=== PATIENT | female | born 1975 | race Caucasian/White ===

== ENCOUNTER → 2018-04-18 10:23 | Outpatient (REF) | payer SELFPAY | LOC: OM 10:23 | PROVIDERS: PCP Nurse Practitioner; Visit Provider Nurse Practitioner Family | DX: Z02.83 Encounter for blood-alcohol and blood-drug test (principal) ==

== ENCOUNTER 2018-06-01 13:55 | Emergency (ER) | payer BC, SELFPAY ==
[2018-06-01 14:06] VITALS: BP 120/82; RESP 17; TEMP 36.7; O2SAT 98
--- NOTE | 2018-06-01 15:21 | DI.RAD_ITS ---
SYMPTOMS/DIAGNOSIS: SENSATION OF SWELLING AT BASE OF TONGUE X 1 DAY, ? NEW MEDICATION ALLERGY PER PATIENT SOFT TISSUE NECK: AP and lateral views were performed. There is no prevertebral soft tissue swelling. The epiglottis and aryepiglottic folds are unremarkable. There is no airway narrowing. Degenerative changes are seen in the cervical spine. No foreign body is seen. No pneumothorax is seen at the lung apices. IMPRESSION: Degenerative changes of the cervical spine. Unremarkable soft tissues.
--- NOTE | 2018-06-01 15:25 | W.ED.GENAD ---
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 It is extremely important that you make an appointment to be seen by your primary care doctor within the next 1-2 weeks and follow-up this visit. Referrals: Marie Rosales [Primary Care Provider] - Discharge Data Discharge Date/Time-TO BE ENTERED AT DEPARTURE: 06/01/18 17:53 Medical Decision Making Emmanuelle Brooks is a 43 y/o woman with h/o PCOS presenting to the emergency department with sensation of tongue swelling that began today, sent here from obstetrics gyn appt after she reported symptoms to them. Pt with normal exam of the oropharynx. No apparent edema. Pt is handling secretions without issue. Exam/hx not c/w impending airway compromise at this time, sepsis, abscess. Given Pt report of feeling swelling at base of tongue and no apparent changes on exam, plan for plain film soft tissue neck for r/o epiglottic or other pharyngeal abnormality. Neck film okay. Doubt allergic reaction at this time. Unclear etiology of abnormal tongue sensation. Pt reports tongue feels improved. Lengthy discussion with Pt re: RTED precautions and importance of outpt f/u with PCP. She is amenable to the plan. HPI General Mode of arrival: ambulatory. Date/Time Provider Initiated Documentation: 06/01/18 14:21. Limitations to Documentation: no limitations. Information obtained by: patient, RN notes reviewed and old records reviewed. HPI Narrative: Emmanuelle De Leon is a 43 y/o woman with h/o polycystic ovarian syndrome presenting to the emergency department with tongue swelling. Pt reports that several days ago she was started on clobetasol for lichen sclerosis. She reports that today she felt that her tongue seemed swollen. She was seen by gynecology today in f/u visit, spoke to them re: tongue symptoms, was given 40mg prednisone and 10mg zyrtec and sent to ED for further eval. Pt reports that her tongue swelling seems mildly improved but still present since taking meds. She states that the base of her tongue in the back is the area that feels abnormal to her. She has eaten since onset of symptoms without issue, no trouble swallowing. No pain, no fevers, no n/v/d, no rash, no other swelling. Feels otherwise in her usual state of health. No other new meds, new foods, new exposures. No recent travel, no recent illness. Related Data Home Medications Medication Instructions Recorded Confirmed multivitamin [Daily Multi-Vitamin] 1 ea PO DAILY 04/19/18 06/06/18 prochlorperazine maleate 10 mg PO Q6H PRN #60 tab-cap 04/19/18 06/06/18 magnesium oxide 500 mg capsule 500 mg PO DAILY cap 06/06/18 06/06/18 riboflavin (vitamin B2) 100 mg 100 mg PO DAILY #30 tab 06/06/18 06/06/18 tablet rizatriptan 10 mg disintegrating 10 mg PO ONCE #8 tab-cap 06/06/18 06/06/18 tablet Previous Rx's Medication Instructions Recorded prochlorperazine maleate 10 mg PO Q6H PRN #60 tab-cap 04/19/18 riboflavin (vitamin B2) 100 mg 100 mg PO DAILY #30 tab 06/06/18 tablet rizatriptan 10 mg disintegrating 10 mg PO ONCE #8 tab-cap 06/06/18 tablet Allergies Allergy/AdvReac Type Severity Reaction Status Date / Time clobetasol Allergy Severe Verified 06/01/18 13:43 morphine Allergy Severe Anaphylaxsi Verified 05/31/18 10:48 s sulfamethoxazole Allergy Unknown Verified 05/31/18 10:48 [From Bactrim] trimethoprim [From Bactrim] Allergy Unknown Verified 05/31/18 10:48 General Stated Complaint: Allergic PAMELA: 4 Review of Systems Review of Systems Constitutional: denies fevers Eyes: denies eye pain ENT: denies facial pain, dental pain, sore throat Cardiovascular: denies chest pain, edema Respiratory: denies SOB, cough GI: denies abdominal pain, vomiting, diarrhea : denies flank pain MSK: denies back pain, neck pain, arthralgias, myalgias Skin: denies rash Neuro: denies headaches, n/t PFSH Female Reproductive History Menstrual control method: other (Vasectomy for BC) Exam Narrative Exam Narrative: Constitutional: well and [id number], pleasant, conversing normally HENT: head atraumatic, normocephalic normal inspection, mucous membranes moist, normal oropharynx without apparent edema of the tongue or lips, no erythema, uvula midline, normal voice, handling secretions without issue Eyes: conjunctiva normal, sclera normal, pupils 3mm b/l Neck: no stridor, normal ROM, trachea midline Resp: normal work of breathing, LCTAB Cardio: normal rate, normal rhythm, no murmur appreciated Skin: warm, dry, normal color, no rash Neuro: alert, not altered, grossly non-focal, normal tone Psych: normal mood, normal affect, normal behavior Course Vital Signs Temperature 36.7 C 06/01/18 14:06 Respiratory Rate 17 06/01/18 14:06 Blood Pressure 120/82 06/01/18 14:06 Pulse Oximetry 98 06/01/18 14:06 Temperature 36.7 C 06/01/18 14:06 Temperature Source Temporal Artery Scan 06/01/18 14:06 Respiratory Rate 17 06/01/18 14:06 Respiratory Effort 06/01/18 14:12 Respiratory Pattern Normal 06/01/18 14:12 Blood Pressure 120/82 06/01/18 14:06 Blood Pressure Position Sitting 06/01/18 14:06 Pulse Oximetry 98 06/01/18 14:06 Oxygen Delivery Method Room Air 06/01/18 14:06 Oxygen Flow Rate 0 06/01/18 14:06 Pain Level 0 06/01/18 14:06
--- NOTE | 2018-06-01 17:06 | DI.VRAD_ITS ---
EXAM: XR Soft Tissue Neck CLINICAL HISTORY: 43 years old, female; Signs and symptoms; Other: Sensation of swelling at base of tongue TECHNIQUE: Frontal and lateral views of the soft tissues of the neck. COMPARISON: No relevant prior studies available. FINDINGS: The soft tissues are unremarkable. No radiopaque foreign body. Degenerative disc disease at the C4-5 level with minimal posterior positioning of C4 with respect to C3 and C5. No evidence of acute bony abnormality. IMPRESSION: Degenerative disease of the mid cervical spine. No evidence of acute abnormality. Dictated and Authenticated by: Milotn Howe MD. Ordering:SOTERO ALMODOVAR MD
--- NOTE | 2018-06-14 20:54 | ED.GENADUL_ITS ---
Discharge Plan Disposition Patient Disposition: HOME Condition: Stable Discharge Details Chief Complaint: Allergic Clinical Impression: Abnormality of tongue Primary Care Provider: Marie Rosales ED Provider: Gabriela Rodriguez Home Meds and New Rx's Prescriptions: Continue multivitamin [Daily Multi-Vitamin] 1 EACH tablet 1 ea PO DAILY RF: 0 prochlorperazine maleate 10 MG tablet 10 mg PO Q6H PRN Qty: 60 RF: 1 No Action riboflavin (vitamin B2) 100 mg tablet 100 mg PO DAILY Qty: 30 RF: 6 rizatriptan [Maxalt-RETAIL LOSS PREVENTION SPECIALIST] 10 mg tablet,disintegrating 10 mg PO ONCE Qty: 8 RF: 6 magnesium oxide 500 mg capsule 500 mg PO DAILY RF: 0 Discharge Instructions Instructions: Anaphylaxis (ED), Allergies (ED) Additional Instructions: Please return immediately to the emergency department if you develop any new or worsening symptoms or if you become otherwise concerned. It is extremely important that you make an appointment to be seen by your primary care doctor within the next 1-2 weeks and follow-up this visit. 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 Pt with normal exam of the oropharynx. No apparent edema. Pt is handling secretions without issue. Exam /hx not c/w impending airway compromise at this time, sepsis, abscess. Given Pt report of feeling swelling at base of tongue and no apparent changes on exam, plan for plain film soft tissue neck for r/o epiglottic or other pharyngeal abnormality. Neck film okay. Doubt allergic reaction at this time. Unclear etiology of abnormal tongue sensation. Pt reports tongue feels improved. Lengthy discussion with Pt re: RTED precautions and importance of outpt f/u with PCP. She is amenable to the plan. HPI General Mode of arrival: ambulatory . Date/Time Provider Initiated Documentation: 06/01/18 14:21 . Limitations to Documentation: no limitations . Information obtained by: patient, RN notes reviewed and old records reviewed . HPI Narrative: Emmanuelle De Leon is a 43 y/o woman with h/o polycystic ovarian syndrome presenting to the emergency department with tongue swelling. Pt reports that several days ago she was started on clobetasol for lichen sclerosis. She reports that today she felt that her tongue seemed swollen. She was seen by gynecology today in f/u visit, spoke to them re: tongue symptoms, was given 40mg prednisone and 10mg zyrtec and sent to ED for further eval. Pt reports that her tongue swelling seems mildly improved but still present since taking meds. She states that the base of her tongue in the back is the area that feels abnormal to her. She has eaten since onset of symptoms without issue , no trouble swallowing. No pain, no fevers, no n/v/d, no rash, no other swelling. Feels otherwise in her usual state of health. No other new meds, new foods, new exposures. No recent travel, no recent illness. Related Data Home Medications Medication Instructions Recorded Confirmed multivitamin [Daily Multi-Vitamin] 1 ea PO DAILY 04/19/18 06/06/18 prochlorperazine maleate 10 mg PO Q6H PRN #60 tab-cap 04/19/18 06/06/18 magnesium oxide 500 mg capsule 500 mg PO DAILY cap 06/06/18 06/06/18 riboflavin (vitamin B2) 100 mg 100 mg PO DAILY #30 tab 06/06/18 06/06/18 tablet rizatriptan 10 mg disintegrating 10 mg PO ONCE #8 tab-cap 06/06/18 06/06/18 tablet Previous Rx's Medication Instructions Recorded prochlorperazine maleate 10 mg PO Q6H PRN #60 tab-cap 04/19/18 riboflavin (vitamin B2) 100 mg 100 mg PO DAILY #30 tab 06/06/18 tablet rizatriptan 10 mg disintegrating 10 mg PO ONCE #8 tab-cap 06/06/18 tablet Allergies Allergy/AdvReac Type Severity Reaction Status Date / Time clobetasol Allergy Severe Verified 06/01/18 13:43 morphine Allergy Severe Anaphylaxsi Verified 05/31/18 10:48 s sulfamethoxazole Allergy Unknown Verified 05/31/18 10:48 [From Bactrim] trimethoprim [From Bactrim] Allergy Unknown Verified 05/31/18 10:48 General Stated Complaint: Allergic PAMELA: 4 Review of Systems Review of Systems Constitutional: denies fevers Eyes: denies eye pain ENT: denies facial pain, dental pain, sore throat Cardiovascular: denies chest pain, edema Respiratory: denies SOB, cough GI: denies abdominal pain, vomiting, diarrhea : denies flank pain MSK: denies back pain, neck pain, arthralgias, myalgias Skin: denies rash Neuro: denies headaches, n/t PFSH Female Reproductive History Menstrual control method: other (Vasectomy for BC) Exam Narrative Exam Narrative: Constitutional: well and [id number], pleasant, conversing normally HENT: head atraumatic, normocephalic normal inspection, mucous membranes moist, normal oropharynx without apparent edema of the tongue or lips, no erythema, uvula midline, normal voice, handling secretions without issue Eyes: conjunctiva normal, sclera normal, pupils 3mm b/l Neck: no stridor, normal ROM, trachea midline Resp: normal work of breathing, LCTAB Cardio: normal rate, normal rhythm, no murmur appreciated Skin: warm, dry, normal color, no rash Neuro: alert, not altered, grossly non-focal, normal tone Psych: normal mood, normal affect, normal behavior Course Vital Signs Temperature 36.7 C 06/01/18 14:06 Respiratory Rate 17 06/01/18 14:06 Blood Pressure 120/82 06/01/18 14:06 Pulse Oximetry 98 06/01/18 14:06 Temperature 36.7 C 06/01/18 14:06 Temperature Source Temporal Artery Scan 06/01/18 14:06 Respiratory Rate 17 06/01/18 14:06 Respiratory Effort 06/01/18 14:12 Respiratory Pattern Normal 06/01/18 14:12 Blood Pressure 120/82 06/01/18 14:06 Blood Pressure Position Sitting 06/01/18 14:06 Pulse Oximetry 98 06/01/18 14:06 Oxygen Delivery Method Room Air 06/01/18 14:06 Oxygen Flow Rate 0 06/01/18 14:06 Pain Level 0 06/01/18 14:06
== END 2018-06-01 17:53 | disposition home or self-care (01) ==
PROVIDERS: Emergency Provider Student in an Organized Health Care Education/Training Program; PCP Nurse Practitioner
DX: R20.0 Anesthesia of skin (principal)
CPT/HCPCS: 99283; 70360; 99282

== ENCOUNTER 2018-06-24 10:08 | Emergency (ER) | payer BC, SELFPAY ==
[2018-06-24 10:21] VITALS: BP 128/68; PULSE 71; RESP 16; TEMP 36.7; O2SAT 100
--- NOTE | 2018-06-24 10:41 | W.ED.GENAD ---
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 Please follow-up with your neurologist. Return to the ER for any worsening or new concerning symptoms. Referrals: Marie Rosales [Primary Care Provider] - Shasha Cisneros MD [ [facility] STAFF PHYSICIAN] - Discharge Data Discharge Date/Time-TO BE ENTERED AT DEPARTURE: 06/24/18 12:05 Medical Decision Making 10:43 --43-year-old female with history of migraine headaches here with severe migraine. We will give compazine IV and benadryl. Plan for occipital block. 11:50 --patient refused Benadryl. She did receive Compazine and on reassessment notes significant improvement in headache. Patient requesting discharge. Patient declined occipital block. Usual and customary discharge instructions provided. Plan to f/u neurology. Patient understands to return immediately for any worsening or new concerning symptoms. HPI General Mode of arrival: ambulatory. Date/Time Provider Initiated Documentation: 06/24/18 10:24. Limitations to Documentation: no limitations. Information obtained by: patient. HPI Narrative: 43-year-old female with history of migraine headaches here with severe migraine. Migraine has been present for 4 days. Feels like typical migraine but is persisting. Pain is diffuse. Severe. Constant. Light worsens headache. No assoc neck stiffness or fever. No assoc numbness or weakness. Related Data Home Medications Medication Instructions Recorded Confirmed multivitamin [Daily Multi-Vitamin] 1 ea PO DAILY 04/19/18 06/28/18 prochlorperazine maleate 10 mg PO Q6H PRN #60 tab-cap 08/28/18 11/06/18 magnesium oxide 500 mg capsule 500 mg PO DAILY cap 06/06/18 06/28/18 riboflavin (vitamin B2) 100 mg 100 mg PO DAILY #30 tab 06/06/18 06/28/18 tablet rizatriptan 10 mg disintegrating 10 mg PO ONCE #8 tab-cap 18 06/28/18 tablet Previous Rx's Medication Instructions Recorded prochlorperazine maleate 10 mg PO Q6H PRN #60 tab-cap 04/19/18 riboflavin (vitamin B2) 100 mg 100 mg PO DAILY #30 tab 06/06/18 tablet rizatriptan 10 mg disintegrating 10 mg PO ONCE #8 tab-cap 06/06/18 tablet Allergies Allergy/AdvReac Type Severity Reaction Status Date / Time clobetasol Allergy Severe Verified 06/28/18 12:51 morphine Allergy Severe Anaphylaxsi Verified 06/28/18 12:51 s sulfamethoxazole Allergy Unknown Verified 06/28/18 12:51 [From Bactrim] trimethoprim [From Bactrim] Allergy Unknown Verified 06/28/18 12:51 General Stated Complaint: Headache PAMELA: 2 Review of Systems Review of Systems All systems reviewed & are unremarkable except as noted in HPI and below PFSH Female Reproductive History Menstrual control method: permanent sterilization (vasectomy) and other (Vasectomy for BC) Exam Const General: cooperative and no acute distress [facility] Head: normocephalic and atraumatic Mouth: moist mucous membranes Eyes Conjunctivae: normal conjunctivae Sclera: normal sclerae EOM: EOM intact bilaterally Neck Neck: full ROM and trachea midline Resp Auscultation: clear to auscultation bilaterally, no rales, no rhonchi and no wheezes Cardio Jugular venous pressure: no JVD Rate: regular rate and not tachycardic Rhythm: regular rhythm GI Palpation: soft, not firm, no guarding, no masses, not rigid and nontender Skin General skin exam: no rashes or lesions noted Neuro General: alert, awake, oriented x3, gait normal, tone normal and moves all extremities Cognition: normal cognition Speech: speech normal Gait: normal gait Motor: strength 5/5 throughout Sensory Exam: no sensory deficits noted Extrem General: no edema Psych Appearance: grossly normal Mental Status: mental status grossly normal Speech and Movement: speech and movement normal Course Vital Signs Temperature 36.7 C 06/24/18 10:21 Pulse 71 06/24/18 10:21 Respiratory Rate 16 06/24/18 10:21 Blood Pressure 128/68 06/24/18 10:21 Pulse Oximetry 100 06/24/18 10:21 Temperature 36.7 C 06/24/18 10:21 Temperature Source Temporal Artery Scan 06/24/18 10:21 Pulse 71 06/24/18 10:21 Respiratory Rate 16 06/24/18 10:21 Respiratory Effort Non-Labored 06/24/18 10:27 Blood Pressure 128/68 06/24/18 10:21 Blood Pressure Position Sitting 06/24/18 10:21 Pulse Oximetry 100 06/24/18 10:21 Oxygen Delivery Method Room Air 06/24/18 10:21 Oxygen Flow Rate 0 06/24/18 10:21
--- NOTE | 2018-06-24 10:44 | ED.GENADUL_ITS ---
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 Please follow-up with your neurologist. Return to the ER for any worsening or new concerning symptoms. Referrals: Marie Rosales [Primary Care Provider] - Shasha Cisneros MD [ [facility] STAFF PHYSICIAN] - Discharge Data Discharge Date/Time-TO BE ENTERED AT DEPARTURE: 06/24/18 12:05 Medical Decision Making 10:43 --43-year-old female with history of migraine headaches here with severe migraine. We will give compazine IV and benadryl. Plan for occipital block. 11:50 --patient refused Benadryl. She did receive Compazine and on reassessment notes significant improvement in headache. Patient requesting discharge. Patient declined occipital block. Usual and customary discharge instructions provided. Plan to f/u neurology. Patient understands to return immediately for any worsening or new concerning symptoms. HPI General Mode of arrival: ambulatory . Date/Time Provider Initiated Documentation: 06/24/18 10:24 . Limitations to Documentation: no limitations . Information obtained by: patient . HPI Narrative: 43-year-old female with history of migraine headaches here with severe migraine. Migraine has been present for 4 days. Feels like typical migraine but is persisting. Pain is diffuse. Severe. Constant. Light worsens headache. No assoc neck stiffness or fever. No assoc numbness or weakness. Related Data Home Medications Medication Instructions Recorded Confirmed multivitamin [Daily Multi-Vitamin] 1 ea PO DAILY 04/19/18 06/28/18 prochlorperazine maleate 10 mg PO Q6H PRN #60 tab-cap 08/28/18 11/06/18 magnesium oxide 500 mg capsule 500 mg PO DAILY cap 06/06/18 06/28/18 riboflavin (vitamin B2) 100 mg 100 mg PO DAILY #30 tab 06/06/18 06/28/18 tablet rizatriptan 10 mg disintegrating 10 mg PO ONCE #8 tab-cap 18 06/28/18 tablet Previous Rx's Medication Instructions Recorded prochlorperazine maleate 10 mg PO Q6H PRN #60 tab-cap 04/19/18 riboflavin (vitamin B2) 100 mg 100 mg PO DAILY #30 tab 06/06/18 tablet rizatriptan 10 mg disintegrating 10 mg PO ONCE #8 tab-cap 06/06/18 tablet Allergies Allergy/AdvReac Type Severity Reaction Status Date / Time clobetasol Allergy Severe Verified 06/28/18 12:51 morphine Allergy Severe Anaphylaxsi Verified 06/28/18 12:51 s sulfamethoxazole Allergy Unknown Verified 06/28/18 12:51 [From Bactrim] trimethoprim [From Bactrim] Allergy Unknown Verified 06/28/18 12:51 General Stated Complaint: Headache PAMELA: 2 Review of Systems Review of Systems All systems reviewed & are unremarkable except as noted in HPI and below PFSH Female Reproductive History Menstrual control method: permanent sterilization (vasectomy) and other (Vasectomy for BC) Exam Const General: cooperative and no acute distress [facility] Head: normocephalic and atraumatic Mouth: moist mucous membranes Eyes Conjunctivae: normal conjunctivae Sclera: normal sclerae EOM: EOM intact bilaterally Neck Neck: full ROM and trachea midline Resp Auscultation: clear to auscultation bilaterally, no rales, no rhonchi and no wheezes Cardio Jugular venous pressure: no JVD Rate: regular rate and not tachycardic Rhythm: regular rhythm GI Palpation: soft, not firm, no guarding, no masses, not rigid and nontender Skin General skin exam: no rashes or lesions noted Neuro General: alert, awake, oriented x3, gait normal, tone normal and moves all extremities Cognition: normal cognition Speech: speech normal Gait: normal gait Motor: strength 5/5 throughout Sensory Exam: no sensory deficits noted Extrem General: no edema Psych Appearance: grossly normal Mental Status: mental status grossly normal Speech and Movement: speech and movement normal Course Vital Signs Temperature 36.7 C 06/24/18 10:21 Pulse 71 06/24/18 10:21 Respiratory Rate 16 06/24/18 10:21 Blood Pressure 128/68 06/24/18 10:21 Pulse Oximetry 100 06/24/18 10:21 Temperature 36.7 C 06/24/18 10:21 Temperature Source Temporal Artery Scan 06/24/18 10:21 Pulse 71 06/24/18 10:21 Respiratory Rate 16 06/24/18 10:21 Respiratory Effort Non-Labored 06/24/18 10:27 Blood Pressure 128/68 06/24/18 10:21 Blood Pressure Position Sitting 06/24/18 10:21 Pulse Oximetry 100 06/24/18 10:21 Oxygen Delivery Method Room Air 06/24/18 10:21 Oxygen Flow Rate 0 06/24/18 10:21
[2018-06-24] MEDS: Prochlorperazine 10 MG/2 ML VIAL IVP (11:04)
[2018-06-24 12:04] VITALS: BP 128/68; PULSE 71; RESP 16; TEMP 36.7; O2SAT 100
== END 2018-06-24 12:05 | disposition home or self-care (01) ==
PROVIDERS: Emergency Provider Student in an Organized Health Care Education/Training Program; PCP Nurse Practitioner
DX: G43.909 Migraine, unspecified, not intractable, without status migrainosus (principal)
CPT/HCPCS: 96374; 99284; J0780

== ENCOUNTER 2018-07-04 00:47 | Outpatient (CLI) | payer BC, SELFPAY ==
--- NOTE | 2018-07-04 15:00 | DI.MAMMO_ITS ---
SYMPTOMS/DIAGNOSIS: BREAST CA SCREENING, Z12.31 MAMMOGRAMS: Mammograms were interpreted according to the usual protocol including computer analysis with CAD system, tomosynthesis and C view imaging. No priors for comparison. No suspicious masses or microcalcifications are seen. The skin and axillae are unremarkable. IMPRESSION: No evidence for malignancy. Yearly mammography is recommended. Category 1, breast density D. MQSA ASSESSMENT OF FINDINGS: Negative. Category 1. Patient will receive a letter notifying them of these results. BI-RADS category D. The breasts are extremely dense, which lowers the sensitivity of mammography.
== END 2018-07-04 01:07 ==
PROVIDERS: PCP Nurse Practitioner; Visit Provider Obstetrics & Gynecology Gynecology
DX: Z12.31 Encounter for screening mammogram for malignant neoplasm of breast (principal)
CPT/HCPCS: 77063; 77067

== ENCOUNTER 2018-07-07 11:47 | Outpatient (REF) | payer BC, SELFPAY ==
[2018-07-07 14:27] LABS: Bilirubin Negative (Negative); Blood Negative (Negative); Clarity Sl Cloudy; Glucose Negative (Negative); Ketones Negative (Negative); Leukocyte Esterase Negative (Negative); Nitrite Negative (Negative); Urobilinogen 0.2 EU/dL (Up TO 0.2); pH 6.5 (5-8)
== END 2018-07-07 12:07 ==
LOC: NCHCN 11:47
PROVIDERS: PCP Nurse Practitioner; Visit Provider Family Medicine
DX: R30.0 Dysuria (principal)
CPT/HCPCS: 81003

== ENCOUNTER 2018-12-16 12:49 | Outpatient (CLI) | payer BC, SELFPAY ==
[2018-12-16 13:38] LABS: HCT 40.1 % (36.0-46.0); HGB 13.4 g/dL (12.0-15.5); Mean Corp. HGB Concentration 33.4 g/dL (32.0-36.0); Mean Corpuscular Hemoglobin 31.1 pg (27.0-33.0); Mean Platelet Volume 11.6 fL (8.0-11.0); Platelet Count 316 x1000/uL (130-400); RBC 4.31 m/cumm (4.00-5.20); RBC Distribution Width 12.7 % (11.7-14.6); White Blood Cell Count 10.36 k/cumm (4.4-10.8)
[2018-12-16 15:02] LABS: ALT 18 U/L (12-78); AST 11 U/L (15-37); Albumin 4.2 g/dL (3.4-5.0); Alkaline Phosphatase 49 U/L (46-116); Anion Gap 10.8 mmol/L (3-11); BUN 12 mg/dL (7-18); Bilirubin, Total 0.6 mg/dL (0.2-1.0); CO2 25.2 mmol/L (21.0-32.0); Calcium 9.7 mg/dL (8.5-10.1); Chloride 102 mmol/L (98-107); Glucose 99 mg/dL (70-100); Magnesium 1.8 mg/dL (1.8-2.4); Potassium 3.7 mmol/L (3.5-5.1); Sodium 138 mmol/L (136-145); TSH (W/Ref FT4) 2.77 uIU/mL (0.358-3.74); Total Protein 7.4 g/dL (6.4-8.2); Vitamin B12 457 pg/mL (193-986)
[2018-12-16 15:05] LABS: Folate > 20.0 ng/mL (8.6-20.0)
[2018-12-19 06:20] LABS: Vitamin D 25 Total 20.6 ng/ml (30-100)
== END 2018-12-16 13:09 ==
PROVIDERS: PCP Nurse Practitioner; Visit Provider Internal Medicine Sleep Medicine
DX: R53.83 Other fatigue (principal); E55.9 Vitamin D deficiency, unspecified
CPT/HCPCS: 36415; 80053; 82306; 85027; 82607; 82746; 83735; 84443

== ENCOUNTER 2019-07-04 13:11 | Outpatient (CLI) | payer BC, SELFPAY ==
--- NOTE | 2019-07-04 12:03 | DI.RAD_ITS ---
EXAM: XR WRIST RT COMPLETE CLINICAL HISTORY: RT WRIST PAIN, M25.531. TECHNIQUE: 2D digital imaging was performed. COMPARISON: No exams were available for comparison FINDINGS: BONES: No acute fracture is present. No bony destructive lesion is seen. JOINTS: The carpal bones are normally aligned. SOFT TISSUE: Normal. IMPRESSION: Unremarkable radiographs of the right wrist.
== END 2019-07-04 13:31 ==
PROVIDERS: PCP Nurse Practitioner; Visit Provider Nurse Practitioner
DX: M25.531 Pain in right wrist (principal)
CPT/HCPCS: 73110

== ENCOUNTER 2019-08-10 00:34 | Outpatient (CLI) | payer BC, SELFPAY ==
--- NOTE | 2019-08-10 08:09 | DI.US_ITS ---
EXAM: US PELVIS TRANSVAGINAL CLINICAL HISTORY: dysmenorrhea, heavy flow,n94.6 TECHNIQUE: Ultrasound performed using standard protocol. COMPARISON: PELVIS TRANSVAG from 06/23/2017 FINDINGS: Pelvic ultrasound was performed transvaginally and transabdominally. Previously described approximat lubna 3 cm in diameter fundal uterine fibroid again noted. Endometrial stripe is about 6 millimeters i n thickness. Minimal fluid identified in the endometrial cavity as well. The ovaries have a normal follicular appearance. Unremarkable Doppler evaluation of the ovaries. No free fluid in the cul-de- sac. Limited scanning of the kidneys is unremarkable. IMPRESSION: No change in uterine fundal fibroid. Unremarkable endometrial stripe except for small quantity of fl uid in the endometrial cavity.
== END 2019-08-10 00:54 ==
PROVIDERS: PCP Nurse Practitioner; Visit Provider Obstetrics & Gynecology Gynecology
DX: N94.6 Dysmenorrhea, unspecified (principal); D25.9 Leiomyoma of uterus, unspecified
CPT/HCPCS: 76830; 76856

== ENCOUNTER 2019-11-13 22:45 | Emergency (ER) | payer OTHER, SELFPAY ==
[2019-11-13 22:47] VITALS: BP 150/73; PULSE 108; RESP 17; TEMP 36.7; O2SAT 100
--- NOTE | 2019-11-13 22:50 | ED.GENADUL_ITS ---
Discharge Plan Disposition Patient Disposition: HOME Condition: Good Discharge Details Chief Complaint: GenMedical Clinical Impression: Anxiety, Hypocalcemia, Hypomagnesemia, Elevated TSH Primary Care Provider: Marie Rosales ED Provider: Marizol Gutierrez Home Meds and New Rx's Prescriptions: New lorazepam [Ativan] 0.5 mg tablet 0.5 mg PO TID PRN (Reason: anxiety) Qty: 3 RF: 0 Continued hydroxyzine HCl 25 mg tablet See Rx Instructions PO QID PRN (Reason: itching or anxiety) Qty: 30 RF: 2 rizatriptan [Maxalt-STRINGED INSTRUMENT TUNER] 10 mg tablet,disintegrating 10 mg PO ONCE Qty: 8 RF: 5 magnesium oxide 500 mg capsule 500 mg PO DAILY RF: 0 clobetasol 0.05 % ointment 1 applic TP .COMPLEX Qty: 0 RF: 1 multivitamin [Daily Multi-Vitamin] 1 EACH tablet 1 ea PO DAILY RF: 0 prochlorperazine maleate 10 MG tablet 10 mg PO Q6H PRN Qty: 60 RF: 1 Discharge Instructions Instructions: Anxiety (ED) Additional Instructions: Your labs and imaging are reassuring today. Your symptoms and history are most consistent with anxiety. You have been prescribed small amount of ativan if you have recurrent symptoms. Please take this medication as prescribed, keep in a safe place and do not drive while taking this medication. Encourage water intake. Do not take colloid silver. Try the anxiolytic techniques that your counselor had previously discussed. Please call your primary care tomorrow to schedule follow up appointment with counselor and primary care physician. If they are unavailable in a timely manner please call [facility] at [phone]. Please discuss your elevated thyroid hormone further with your primary care. Your magnesium was slightly low today, please continue with your supplement. If you develop new/worsening symptoms please seek care urgently once again. Referrals: Marie Rosales [Primary Care Provider] - Discharge Data Discharge Date/Time-TO BE ENTERED AT DEPARTURE: 11/14/19 00:45 Medical Decision Making Patient is a pleasant 44-year-old female presenting to complaint of allergic reaction. She reports that she did increase her colloid silver dosing today. She is been taking his medication for the past week. Shortly after she began having elevated heart rate, elevated blood pressure, chest heaviness, and shakiness in her legs. States this came on 3 minutes after dosing. She had not had any symptoms like this prior. I was not familiar with this medication but the small amount of information suggest that aside from skin depigmentation and adverse effects when used long-term, do not see any short-term emergent association with her symptoms. She is denying any rash, shortness of breath, difficulty breathing, intraoral lesions. She does report that she has anxiety and is feeling quite anxious. She has been feeling anxious regarding COVID and her mother's recent diagnosis of cancer. States she has been having more panic attacks recently than she has been historically. On exam, patient appears quite anxious. She does appear slightly tachypneic no work of breathing or respiratory distress is noted. Patient is slightly tachycardic at 108, oxygen 90%. She is hypertensive with blood pressure 150/73. Normal cardiac exam, lungs are clear. No abnormalities in lower extremities. EKG was reviewed by Dr. Shah. Patient's normal sinus rhythm with a rate of 85. She does have some nonspecific T wave change but these are unchanged from previous. Patient was offered anxiolytic Heart rate is down to the 80s after 0.5 mill Ativan. FINDINGS: Lungs: Unremarkable. No consolidation. Pleural space: Unremarkable. No pleural effusion. No pneumothorax. Heart/Mediastinum: Unremarkable. No cardiomegaly. Bones/joints: Unremarkable. IMPRESSION: 1. No acute findings. 2. No focal consolidations or infiltrates. Labs are reviewed and found to be without signfiicant abnormality. She has had improvemtn in her symptoms, feeling well at thsi time. She reports that her symptoms are most likely linked to anxiety. She has had a resolution of her tachycardia. We discussed, at length, options for treatment of her anxiety. She has a local PCP who she will call tomorrow. She has gone through them for counseling historically. She is requesting a small amount of medication to help with her anxiety. I feel that this is appropriate but advised that she will need half-way care for her anxiety through her PCP. Patient was given strict return precautions. All of her questions ns concerns were addressed, she is in agreement with this plan. HPI General Mode of arrival: EMS . Date/Time Provider Initiated Documentation: 11/13/19 22:50 . Limitations to Documentation: no limitations . Information obtained by: patient, EMS and RN notes reviewed . HPI Narrative: Patient is a pleasant 44-year-old female brought in via EMS with concern for possible allergic reaction. She reports that she has been taking colloid silver drops for 1 week for her immune system. States she did buy this off of [employer]. Not take this medication before. States approximately 3 minutes after taking this evening's dose, she began having tingling and shakiness in her lower extremities. States that she began noting chest heaviness. Welches that her heart rate was going up noticeably tachycardic and hypertensive when she checked her vital signs at home. Patient reports that she has been taking a large number of supplements to help prevent COVID. Denies any cough. No fevers or chills. Denies shortness of breath. No rash. No fevers. Related Data Home Medications Medication Instructions Recorded Confirmed multivitamin [Daily Multi-Vitamin] 1 ea PO DAILY 04/19/18 11/13/19 prochlorperazine maleate 10 mg PO Q6H PRN #60 tab-cap 04/19/18 11/13/19 magnesium oxide 500 mg capsule 500 mg PO DAILY cap 06/06/18 11/13/19 hydroxyzine HCl 25 mg tablet See Rx Instructions PO QID PRN #30 08/10/18 11/13/19 tab rizatriptan 10 mg disintegrating 10 mg PO ONCE #8 tab-cap 08/10/18 11/13/19 tablet clobetasol 0.05 % topical ointment 1 applic TP .COMPLEX #0 gm 08/11/19 11/13/19 lorazepam [Ativan] 0.5 mg PO TID PRN #3 tab 11/14/19 Previous Rx's Medication Instructions Recorded prochlorperazine maleate 10 mg PO Q6H PRN #60 tab-cap 04/19/18 hydroxyzine HCl 25 mg tablet See Rx Instructions PO QID PRN #30 08/10/18 tab rizatriptan 10 mg disintegrating 10 mg PO ONCE #8 tab-cap 08/10/18 tablet clobetasol 0.05 % topical ointment 1 applic TP .COMPLEX #0 gm 08/11/19 lorazepam [Ativan] 0.5 mg PO TID PRN #3 tab 11/14/19 Allergies Allergy/AdvReac Type Severity Reaction Status Date / Time morphine Allergy Severe Anaphylaxsi Verified 11/13/19 23:00 s sulfamethoxazole Allergy Unknown Verified 11/13/19 23:00 [From Bactrim] trimethoprim [From Bactrim] Allergy Unknown Verified 11/13/19 23:00 clobetasol AdvReac Mild ? S/E from Verified 08/11/19 13:27 cream. Pt given clobetasol oinment w/o problems. General PAMELA: 2 Review of Systems Constitutional Constitutional: Reports as per HPI and Denies headache(s) Eyes Eyes: Reports as per HPI, Denies eye discharge and Denies irritation ENT Ears, Nose, Mouth, and Throat: Reports as per HPI and Denies headache(s) Cardiovascular Cardiovascular: Reports as per HPI, Denies chest pain, Reports chest pain at rest (Chest heaviness), Reports rapid heart rate, Denies pedal edema, Denies edema, Denies irregular heart rhythm, Denies leg edema, Denies lightheadedness, Denies radiating jaw, neck or arm pain, Denies palpitations and Denies dyspnea Respiratory Respiratory: Reports as per HPI, Denies cough, Denies pain on inspiration, Denies pain with cough, Denies dyspnea, Denies stridor and Denies wheezing Gastrointestinal Gastrointestinal: Reports as per HPI, Denies abdominal pain, Denies change in bowel habits, Denies nausea and Denies vomiting Integumentary/Breasts Skin/Breast: Reports as per HPI and Denies rash Neurologic Neurologic: Reports as per HPI and Denies headache(s) Endocrine Endocrine: Denies palpitations Allergic/Immunologic Allergic/Immunologic: Denies wheezing [facility] Medical History Anemia (Chronic) Anxiety (Acute 03/23/17) Chronic constipation (Acute 04/09/14) seen by Yogesh Murrell 2014 who recommended GI at [facility] [place] Constipation, chronic (Resolved) seen by Yogesh Murrell who recommended GI consult. Cystitis, subacute (Chronic) We will begin post coil Rx of Macrobid Elevated hemoglobin A1c (Resolved) 2012 HbgA1c 6.2. 04/2014 HbgA1c 5.5 Fibromyalgia (Chronic) Self diagnosis Irritable bowel (Chronic) Kyphosis (acquired) (postural) (Acute 11/10/17) Microscopic hematuria (Resolved) Noted in 2012. Pt treated for UTI 02/2014. Migraine headache with aura (Chronic) Neurological symptoms (Resolved) Pt having MRI of brain for sx c/w MS. Panic attacks (Acute 03/23/17) Pelvic pain in female (Chronic) R>L side. Longstanding pt assoc with ovulation. Unable to evangelina OCPs secondary to GILES and GI S/E. Uterine fibroid (Resolved) 08/2014 fundal fibroid [id number] 12/2014 fundal fibroid [id number]. Uterine myoma (Acute 09/20/14) 08/2014 fundal fibroid [id number] 12/2014 [id number] fundal fibroid Vulvitis (Chronic) clobetasol cream replaced with clobetasol ointment. effective without side effects. Surgical History nasal surgery (Resolved) Tooth extraction (Resolved) Social History Smoking/Tobacco Use Status: Never Alcohol Intake: current Drug use: Never Household members: spouse, children and other Details: Amandeep, Romel, autistic with violent behavior, [id number], [id number] Number of Children: 3 current occupation: [email or web address] Sexually active: Yes (Uses 's vasectomy for contraception) Do you feel safe at home: Yes Do you feel safe in your relationship?: Yes Female Reproductive History Menstrual control method: permanent sterilization and other History History 3 Para Hx # Term Pregnancies Multiple births Hx # Pregnancies 3 Ectopic pregnancies AB induced Hx Number of Living Children 3 AB spontaneous Exam Const General: cooperative, healthy appearing, no acute distress, well developed, well groomed and anxious Nutritional Appearance: average body habitus and well nourished Orientation: alert and awake [facility] Head: normal to inspection, normocephalic and atraumatic Ears: hearing grossly normal bilaterally, external ears normal and TM's normal bilaterally General nose exam: external nose normal and nares normal Face and sinus: normal facial exam, sinuses nontender and face symmetric Mouth: oral mucosae normal, lip normal, tongue normal, oropharynx normal and mucous membranes dry (Patient appears dry on exam) Teeth and gingiva: dentition normal Throat: posterior oropharynx normal, tonsils normal and uvula midline Eyes General: appearance normal, both eyes and all related structures Neck Neck: normal visual inspection, full ROM, no lymphadenopathy and no meningeal signs Resp Effort & Inspection: normal respiratory effort, able to speak in complete sentences and no respiratory distress Auscultation: clear to auscultation bilaterally, no rales, no rhonchi and no wheezes Cardio Rate: regular rate Rhythm: regular rhythm Heart Sounds: S1 normal and S2 normal GI Inspection: normal to inspection Palpation: soft, no hepatosplenomegaly, no guarding, not rigid and nontender Skin General skin exam: no rashes or lesions noted Neuro General: patient alert and patient awake Cognition: normal cognition Speech: speech normal Gait: normal gait Extrem General: normal to inspection, no pedal edema, no calf tenderness and normal gait Psych Appearance: grossly normal and well kempt Mental Status: mental status grossly normal Speech and Movement: speech and movement normal
[2019-11-13 22:56] VITALS: RESP 17
[2019-11-13] MEDS: Normal Saline 1,000 ML 1000 ML IV (23:30)
[2019-11-13 23:34] LABS: Abs Immature Grans 0.03 k/cumm (0.0-0.09); Absolute Basophil Count 0.03 k/cumm (0.0-0.2); Absolute Eosinophil Count 0.19 k/cumm (0.0-0.7); Absolute Lymphocyte Count 4.44 k/cumm (1.2-3.4); Absolute Monocyte Count 0.83 k/cumm (0.11-0.7); Basophils % 0.2; Eosinophils % 1.5; HCT 37.2 % (36.0-46.0); HGB 12.4 g/dL (12.0-15.5); Immature Grans % 0.2 %; Lymphocytes % 35.2; Mean Corp. HGB Concentration 33.3 g/dL (32.0-36.0); Mean Corpuscular Hemoglobin 31.2 pg (27.0-33.0); Mean Corpuscular Volume 93.7 fL (80-95); Mean Platelet Volume 11.4 fL (8.0-11.0); Monocytes % 6.6; Neutrophils % 56.3; Platelet Count 313 x1000/uL (130-400); RBC 3.97 m/cumm (4.00-5.20); RBC Distribution Width 13.1 % (11.7-14.6); White Blood Cell Count 12.62 k/cumm (4.4-10.8)
[2019-11-13] MEDS: LORazepam 0.5 MG TAB PO (23:34)
[2019-11-13 23:36] LABS: Absolute Neutrophil Count 7.11 k/cumm (1.2-6.7)
--- NOTE | 2019-11-13 23:45 | DI.RAD_ITS ---
EXAM: XR CHEST 2V PA LATERAL XR CHEST 2V PA LATERAL CLINICAL HISTORY: chest heaviness chest heaviness TECHNIQUE: 2D digital imaging was performed. COMPARISON: CHEST 2 VIEWS PA,LAT from 03/16/2017 FINDINGS: The heart is not enlarged. The lungs are clear and well expanded. No pleural effusion seen. Mediastin al contours appear intact. IMPRESSION: Normal chest
--- NOTE | 2019-11-13 23:53 | DI.VRAD_ITS ---
PROCEDURE INFORMATION: Exam: XR Chest, 2 Views Exam date and time: 11/13/2019 11:48 PM Age: 44 years old Clinical indication: Patient HX: Chest heaviness, anxiety TECHNIQUE: Imaging protocol: XR of the chest Views: 2 views. COMPARISON: CR CHEST 2 VIEWS PA,LAT 03/16/2017 11:00 PM FINDINGS: Lungs: Unremarkable. No consolidation. Pleural space: Unremarkable. No pleural effusion. No pneumothorax. Heart/Mediastinum: Unremarkable. No cardiomegaly. Bones/joints: Unremarkable. IMPRESSION: 1. No acute findings. 2. No focal consolidations or infiltrates. Dictated and Authenticated by: Ibrahima Álvarez MD. Ordering:SUSANNA Fontana MD
[2019-11-14 00:20] LABS: ALT 17 U/L (14-59); AST 11 U/L (15-37); Albumin 3.7 g/dL (3.4-5.0); Alkaline Phosphatase 43 U/L (46-116); Anion Gap 10.2 mmol/L (3-11); BUN 10 mg/dL (7-18); Bilirubin, Total 0.3 mg/dL (0.2-1.0); CO2 24.8 mmol/L (21.0-32.0); CREATININE 0.76 mg/dL (0.55-1.02); Calcium 8.1 mg/dL (8.5-10.1); Chloride 103 mmol/L (98-107); Glucose 117 mg/dL (74-106); Magnesium 1.5 mg/dL (1.8-2.4); Potassium 3.5 mmol/L (3.5-5.1); Sodium 138 mmol/L (136-145); TSH (W/Ref FT4) 6.72 uIU/mL (0.36-3.74); Total Protein 6.5 g/dL (6.4-8.2)
[2019-11-14 00:21] LABS: Troponin I < 0.05 ng/Ml (<0.06)
[2019-11-14 00:37] LABS: FREE T4 1.08 ng/dL (0.76-1.46)
== END 2019-11-14 00:45 | disposition home or self-care (01) ==
LOC: ER 11-14 00:58
PROVIDERS: Emergency Provider Physician Assistant; PCP Nurse Practitioner
DX: F41.9 Anxiety disorder, unspecified (principal); E83.51 Hypocalcemia; E83.42 Hypomagnesemia; R94.6 Abnormal results of thyroid function studies; R03.0 Elevated blood-pressure reading, without diagnosis of hypertension
CPT/HCPCS: 36415; 80053; 93005; 96360; 99285; 71046; 83735; 84439; 84443; 84484; 85025; 93010; 99284; J3490

== ENCOUNTER 2019-11-27 16:32 | Outpatient (REF) | payer OTHER, SELFPAY ==
[2019-11-27 20:26] LABS: ALT 20 U/L (14-59); AST 10 U/L (15-37); Albumin 4.4 g/dL (3.4-5.0); Alkaline Phosphatase 50 U/L (46-116); Anion Gap 8.6 mmol/L (3-11); BUN 14 mg/dL (7-18); Bilirubin, Total 0.3 mg/dL (0.2-1.0); CO2 28.4 mmol/L (21.0-32.0); CREATININE 0.88 mg/dL (0.55-1.02); Calcium 9.8 mg/dL (8.5-10.1); Chloride 107 mmol/L (98-107); Glucose 110 mg/dL (74-106); Potassium 4.3 mmol/L (3.5-5.1); Sodium 144 mmol/L (136-145); TSH 3.61 uIU/mL (0.36-3.74); Total Protein 7.6 g/dL (6.4-8.2)
[2019-11-27 21:11] LABS: ESR 10 mm/hr (0-20)
[2019-11-28 10:50] LABS: HCT 38.9 % (36.0-46.0); HGB 12.9 g/dL (12.0-15.5); Mean Corp. HGB Concentration 33.2 g/dL (32.0-36.0); Mean Corpuscular Hemoglobin 31.2 pg (27.0-33.0); Mean Corpuscular Volume 94.2 fL (80-95); Mean Platelet Volume 12.6 fL (8.0-11.0); Platelet Count 323 x1000/uL (130-400); RBC 4.13 m/cumm (4.00-5.20); RBC Distribution Width 13.2 % (11.7-14.6)
[2019-11-28 15:32] LABS: Rheumatoid Factor <8.6 IU/mL (<12.0)
[2019-11-29 12:46] LABS: ANA Interpretation Negative (Negative)
== END 2019-11-27 16:52 ==
LOC: NCHCN 16:32
PROVIDERS: PCP Nurse Practitioner; Visit Provider Nurse Practitioner
DX: M25.50 Pain in unspecified joint (principal); R94.6 Abnormal results of thyroid function studies; E83.42 Hypomagnesemia; Z86.2 Personal history of diseases of the blood and blood-forming organs and certain disorders involving the immune mechanism
CPT/HCPCS: 80053; 82306; 85027; 85652; 84443; 86038; 86431

== ENCOUNTER 2019-12-09 15:15 | Emergency (ER) | payer OTHER, SELFPAY ==
--- NOTE | 2019-12-09 15:15 | DI.RAD_ITS ---
EXAM: XR WRIST RT COMPLETE CLINICAL HISTORY: Pain, redness TECHNIQUE: COMPARISON: XR WRIST RT COMPLETE from 07/04/2019 FINDINGS: Three views were obtained. Small calcific radiodensity projected anteriorly at the midcarpal level a ppears to have been present prior films of June 2019. No evidence of acute fracture. Normal ali gnment of the carpus except for slight ulnar minus variance. No foreign body identified. IMPRESSION:
[2019-12-09 15:21] VITALS: BP 133/98; PULSE 100; RESP 18; TEMP 36.9; O2SAT 98
--- NOTE | 2019-12-09 15:31 | W.ED.GENAD ---
Discharge Plan Disposition Patient Disposition: HOME Condition: Stable Discharge Details Chief Complaint: Orthopedic Clinical Impression: Pain in wrist Primary Care Provider: Marie Rosales ED Provider: Eugene Bowen Home Meds and New Rx's Prescriptions: New doxycycline hyclate 100 mg tablet 100 mg PO BID Qty: 20 RF: 0 No Action rizatriptan [Maxalt[employer]] 10 mg tablet,disintegrating 10 mg PO ONCE Qty: 8 RF: 5 magnesium oxide 500 mg capsule 500 mg PO DAILY RF: 0 clobetasol 0.05 % ointment 1 applic TP .COMPLEX Qty: 0 RF: 1 multivitamin [Daily Multi-Vitamin] 1 EACH tablet 1 ea PO DAILY RF: 0 prochlorperazine maleate 10 MG tablet 10 mg PO Q6H PRN Qty: 60 RF: 1 phenazopyridine 200 mg tablet 200 mg PO TID Qty: 6 RF: 0 cephalexin 500 mg capsule 500 mg PO TID Qty: 3 RF: 0 amoxicillin-pot clavulanate 875-125 mg tablet 1 tab PO Q12H Qty: 14 RF: 0 fluconazole 150 mg tablet 150 mg PO Q3D Qty: 2 RF: 1 lorazepam [Ativan] 0.5 mg tablet 0.5 mg PO TID PRN (Reason: anxiety) Qty: 3 RF: 0 Discharge Instructions Instructions: Wrist Injury (ED) Additional Instructions: Doxycycline as directed. Use the anti-inflammatory cream prescribed by your primary care provider. Wear splint and sling as needed, advance activity as tolerated. Be sure to do passive range of motion at least 4 times a day to avoid frozen shoulder I have forwarded your information to the orthopedic clinic, please contact them on Wednesday for prompt outpatient reevaluation. Watch for new or worsening symptoms and return to the ER for any concerns Referrals: Tano Tabares MD [ [facility] STAFF PHYSICIAN] - Discharge Data Discharge Date/Time-TO BE ENTERED AT DEPARTURE: 12/09/19 18:00 Medical Decision Making <Jill Euceda - Last Filed: 12/10/19 07:58> 44-year-old female presents with erythema, tenderness, and swelling noted over ulnar tuberosity. She has had rheumatoid work-up through her PCP. She was placed on Augmentin and cephalexin for UTI, she finished second round of antibiotics 4 days ago. Upon presentation she is wearing a universal wrist splint. She states that the pain goes up into her elbow.She denies fever. Positive chills, denies N/V/D. Labs ordered including CBC, CMP, lactate, blood cultures and x-ray of right wrist ordered. Imaging protocol: XR Right wrist. Views: 3 or more views. COMPARISON: CR XR WRIST RT COMPLETE 07/04/2019 11:57 AM FINDINGS: Bones/joints: No fracture. No dislocation. No joint space narrowing. Soft tissues: On the lateral view, unchanged anterior soft tissue calcification (previously superimposed over bone on 07/04/2019). No soft tissue radiopaque foreign body. IMPRESSION: No acute findings. No acute changes compared to 07/04/2019. Care is to be handed off to oncoming provider Eugene CORTÉS, pending lab results. Patient was hemodynamically stable at the time of this dictation. <MOO Finn - Last Filed: 12/09/19 17:50> I assumed care of the patient at shift change. Laboratory values pending. CBC 12.64, lactate 1.7 CRP 0.06 ESR 13. X-ray was unremarkable. Upon reevaluation patient was resting in room 3 without any signs of distress. Was not wearing a splint. She had a small area of erythema along the medial-ular aspect of her wrist that was without warmth, fluctuance, induration, ecchymosis. She had limited range of motion in her wrist secondary to discomfort and she had diffuse mild discomfort. Neuro, vascular, tendon intact. There is no anatomical snuffbox point tenderness. The erythema almost appears as though her [id number] universal splint was too tight because when I went back in the room the erythema appeared to be less. I discussed her laboratory values with her. Slightly elevated white count and lactate but inflammatory markers were unremarkable. Patient would now like to be tested for potential UTI and she reports that her recent Keflex and Augmentin antibiotics were for a UTI and not for cellulitis. Urinalysis obtained and pending. In the meantime patient was placed into a universal wrist splint and a sling at her request. She reports that she wants a sling because her arm feels better elevated. I have placed her on the orthopedic list and she is instructed to contact them on Wednesday for prompt outpatient reevaluation. Patient appears well, nontoxic. Urinalysis unremarkable for obvious infection. Discussed these findings with patient. Patient is concerned regarding her pain. Reports that she cannot take oral anti-inflammatory medication but has been prescribed an anti-inflammatory topical medication that she has not been taking on a regular or consistent basis. I recommend that she takes that as directed and follows up with the orthopedic office on Wednesday. She was encouraged to also contact her primary care provider. We discussed the importance of passive range of motion to avoid a frozen shoulder. Patient has no additional questions or concerns and is comfortable with discharge at this time. Given her slightly elevated white count and mild erythema on the wrist I will treat with doxycycline. Rather low suspicion for acute cellulitis. Examination is not consistent with septic joint. Again, neuro, vascular, tendon intact. HPI <Jill Euceda - Last Filed: 12/10/19 07:58> General Mode of arrival: ambulatory. Date/Time Provider Initiated Documentation: 12/09/19 15:16. Limitations to Documentation: no limitations. Information obtained by: patient. HPI Narrative: 44-year-old female presents with erythema, tenderness, and swelling noted over ulnar tuberosity. She has had rheumatoid work-up through her PCP. She was placed on Augmentin and cephalexin for UTI, she finished second round of antibiotics 4 days ago. Upon presentation she is wearing a universal wrist splint. She states that the pain goes up into her elbow.She denies fever. Positive chills, denies N/V/D. Related Data Home Medications Medication Instructions Recorded Confirmed multivitamin [Daily Multi-Vitamin] 1 ea PO DAILY 04/19/18 12/09/19 prochlorperazine maleate 10 mg PO Q6H PRN #60 tab-cap 04/19/18 12/09/19 magnesium oxide 500 mg capsule 500 mg PO DAILY cap 06/06/18 12/09/19 rizatriptan 10 mg disintegrating 10 mg PO ONCE #8 tab-cap 08/10/18 12/09/19 tablet clobetasol 0.05 % topical ointment 1 applic TP .COMPLEX #0 gm 08/11/19 12/09/19 lorazepam [Ativan] 0.5 mg PO TID PRN #3 tab 11/14/19 12/09/19 cephalexin 500 mg capsule 500 mg PO TID #3 cap 11/22/19 phenazopyridine 200 mg tablet 200 mg PO TID #6 tab 11/22/19 12/09/19 amoxicillin 875 mg-potassium 1 tab PO Q12H #14 tab 11/27/19 clavulanate 125 mg tablet fluconazole 150 mg tablet 150 mg PO Q3D #2 tab 12/05/19 doxycycline hyclate 100 mg PO BID #20 tab 12/09/19 Previous Rx's Medication Instructions Recorded prochlorperazine maleate 10 mg PO Q6H PRN #60 tab-cap 04/19/18 rizatriptan 10 mg disintegrating 10 mg PO ONCE #8 tab-cap 08/10/18 tablet clobetasol 0.05 % topical ointment 1 applic TP .COMPLEX #0 gm 08/11/19 lorazepam [Ativan] 0.5 mg PO TID PRN #3 tab 11/14/19 cephalexin 500 mg capsule 500 mg PO TID #3 cap 11/22/19 phenazopyridine 200 mg tablet 200 mg PO TID #6 tab 11/22/19 amoxicillin 875 mg-potassium 1 tab PO Q12H #14 tab 11/27/19 clavulanate 125 mg tablet fluconazole 150 mg tablet 150 mg PO Q3D #2 tab 12/05/19 doxycycline hyclate 100 mg PO BID #20 tab 12/09/19 Allergies Allergy/AdvReac Type Severity Reaction Status Date / Time morphine Allergy Severe Anaphylaxsi Verified 12/09/19 15:27 s sulfamethoxazole Allergy Unknown Verified 12/09/19 15:27 [From Bactrim] trimethoprim [From Bactrim] Allergy Unknown Verified 12/09/19 15:27 clobetasol AdvReac Mild ? S/E from Verified 12/09/19 15:27 cream. Pt given clobetasol oinment w/o problems. General Stated Complaint: Orthopedic PAMELA: 3 Review of Systems <Jill Euceda - Last Filed: 12/10/19 07:58> Narrative: Constitutional: Negative for weight loss, alert and oriented, well groomed, normal body habitus, appears comfortable. HEENT: Denies trauma, headaches, blurry vision, nasal discharge, sore throat, trouble swallowing. Chest: Denies chest pain, palpitations, irregular rhythm, hypertension. Respiratory: Denies Shortness of breath, cough, hemoptysis. GI: Denies abdominal pain, nausea, vomiting, diarrhea, constipation. : Denies dysuria, hematuria, flank pain, rectal bleeding. Neuro: Denies dizziness, blurry vision, weakness, syncope, headache or facial numbness. Hematologic: Denies easy bruising, intolerance to heat or cold, hair loss. [facility] <Jill Euceda - Last Filed: 12/10/19 07:58> Medical History Anemia (Chronic) Anxiety (Acute 03/23/17) Chronic constipation (Acute 04/09/14) seen by Yogesh Murrell 2013 who [place] [facility] [place]ipation, chronic (Resolved) seen by Yogesh Murrell who recommended GI consult. Cystitis, subacute (Chronic) 11/22/2019 empiric treatment with Pyridium and cephalexin x3 days Elevated hemoglobin A1c (Resolved) 2012 HbgA1c 6.2. 04/2014 HbgA1c 5.5 Fibromyalgia (Chronic) Self diagnosis Irritable bowel (Chronic) Kyphosis (acquired) (postural) (Acute 11/10/17) Microscopic hematuria (Resolved) Noted in 2012. Pt treated for UTI 02/2014. Migraine headache with aura (Chronic) Neurological symptoms (Resolved) Pt having MRI of brain for sx c/w MS. Panic attacks (Acute 03/23/17) Pelvic pain in female (Chronic) R>L side. Longstanding pt assoc with ovulation. Unable to evangelina OCPs secondary to GILES and GI S/E. Uterine fibroid (Resolved) 08/2014 fundal fibroid [id number] 12/2014 fundal fibroid [id number]. Uterine myoma (Acute 09/20/14) 08/2014 fundal fibroid [id number] 12/2014 [id number] fundal fibroid Vulvitis (Chronic) clobetasol cream replaced with clobetasol ointment. effective without side effects. Surgical History nasal surgery (Resolved) Tooth extraction (Resolved) Family History Mother Neoplasm Lung, dx:2016-Smoker Brother No problems noted. Father , Heart Attack Heart disease Other Ovarian cancer Social History Smoking/Tobacco Use Status: Never Alcohol Intake: current Drug use: Never Household members: spouse, children and other Details: Amandeep, Romel, autistic with violent behavior, [id number], [id number] Number of Children: 3 current occupation: [employer] Sexually active: Yes (Uses 's vasectomy for contraception) Do you feel safe at home: Yes Do you feel safe in your relationship?: Yes Female Reproductive History Menstrual control method: permanent sterilization and other History History 3 Para Hx # Term Pregnancies Multiple births Hx # Pregnancies 3 Ectopic pregnancies AB induced Hx Number of Living Children 3 AB spontaneous Exam <Jill Euceda - Last Filed: 12/10/19 07:58> Narrative Exam Narrative: Constitutional: Alert and oriented x3. Appears stated age. Normal body habitus. Head: Normocephalic, no trauma. Eyes: Pupils PERRLA, Red reflex noted, EOM's intact. Eyelids symmetrical without lesions, discharge, or swelling. ENT: Bilateral TM's WNL, External ear normal to inspection, no mastoid TTP, swelling, or erythema, Nasal turbinates WNL, no nasal discharge. Normal dentition, Posterior pharynx WNL, no exudate. Chest: RRR, Normal S1, S2, distal pulses intact. Resp: Lungs clear to auscultation bilaterally, no wheezes, rales, or rhonchi. Musculoskeletal: Normal gait, 5/5 strength to all four extremities. Erythema tenderness, swelling over the distal ulnar tuberosity. There is some mottled red streaks noted going up mid forearm. No lymphadenopathy. Skin: No suspicious rashes or lesions. Capillary refill less than 2 sec. Neurologic: Cranial nerves II-XII intact. Alert and oriented x 3. DTR's intact. Hematologic/Lymphatic: No ecchymosis, no lymphadenopathy. Extrem Elbow/forearm/wrist images: 1. Erythema, warmth and swelling Course <Jill Euceda - Last Filed: 12/10/19 07:58> Vital Signs Vital signs: Vital Signs Temperature 36.9 C 12/09/19 15:21 Pulse 100 H 12/09/19 15:21 Respiratory Rate 18 12/09/19 15:21 Blood Pressure 133/98 H 12/09/19 15:21 Pulse Oximetry 98 12/09/19 15:21 Temperature 36.9 C 12/09/19 15:21 Temperature Source Temporal Artery Scan 12/09/19 15:21 Pulse 100 H 12/09/19 15:21 Respiratory Rate 18 12/09/19 15:21 Respiratory Effort Non-Labored 12/09/19 15:26 Blood Pressure 133/98 H 12/09/19 15:21 Pulse Oximetry 98 12/09/19 15:21 Oxygen Delivery Method Room Air 12/09/19 15:21 Oxygen Flow Rate 0 12/09/19 15:21 Sign Out <Jill Euceda - Last Filed: 12/10/19 07:58> Sign Out Data: Sign Out Comment: Pending lab results Last updated by Jill Euceda at 12/09/19 16:05
[2019-12-09 15:56] LABS: Lactate 1.7 mmol/L (0.6-1.4)
[2019-12-09 16:01] LABS: Abs Immature Grans 0.04 k/cumm (0.0-0.09); Absolute Basophil Count 0.05 k/cumm (0.0-0.2); Absolute Eosinophil Count 0.16 k/cumm (0.0-0.7); Basophils % 0.4; Eosinophils % 1.3; HCT 40.9 % (36.0-46.0); HGB 13.4 g/dL (12.0-15.5); Immature Grans % 0.3 %; Lymphocytes % 28.6; Mean Corp. HGB Concentration 32.8 g/dL (32.0-36.0); Mean Corpuscular Hemoglobin 30.6 pg (27.0-33.0); Mean Corpuscular Volume 93.4 fL (80-95); Mean Platelet Volume 11.6 fL (8.0-11.0); Monocytes % 7.1; Neutrophils % 62.3; Platelet Count 400 x1000/uL (130-400); RBC 4.38 m/cumm (4.00-5.20); RBC Distribution Width 12.9 % (11.7-14.6); White Blood Cell Count 12.64 k/cumm (4.4-10.8)
--- NOTE | 2019-12-09 16:02 | DI.VRAD_ITS ---
PROCEDURE INFORMATION: Exam: XR Right Wrist Exam date and time: 12/09/2019 3:53 PM Age: 44 years old Clinical indication: Right wrist pain; Atraumatic pain TECHNIQUE: Imaging protocol: XR Right wrist. Views: 3 or more views. COMPARISON: CR XR WRIST RT COMPLETE 07/04/2019 11:57 AM FINDINGS: Bones/joints: No fracture. No dislocation. No joint space narrowing. Soft tissues: On the lateral view, unchanged anterior soft tissue calcification (previously superimposed over bone on 07/04/2019). No soft tissue radiopaque foreign body. IMPRESSION: No acute findings. No acute changes compared to 07/04/2019. Dictated and Authenticated by: Kendrick Rendon MD. Ordering:ZAHRA Melchor MD
[2019-12-09 16:03] LABS: Absolute Lymphocyte Count 3.62 k/cumm (1.2-3.4); Absolute Neutrophil Count 7.87 k/cumm (1.2-6.7)
[2019-12-09 16:13] LABS: ALT 19 U/L (14-59); AST 17 U/L (15-37); Albumin 4.3 g/dL (3.4-5.0); Alkaline Phosphatase 56 U/L (46-116); Anion Gap 9.7 mmol/L (3-11); BUN 17 mg/dL (7-18); Bilirubin, Total 0.3 mg/dL (0.2-1.0); CO2 26.3 mmol/L (21.0-32.0); CREATININE 0.95 mg/dL (0.55-1.02); Calcium 9.1 mg/dL (8.5-10.1); Chloride 102 mmol/L (98-107); Glucose 107 mg/dL (74-106); Potassium 4.1 mmol/L (3.5-5.1); Sodium 138 mmol/L (136-145); Total Protein 8.1 g/dL (6.4-8.2)
[2019-12-09 16:26] LABS: C-Reactive Protein 0.06 mg/dL (0.0-0.3)
[2019-12-09 17:00] LABS: ESR 13 mm/hr (0-20)
[2019-12-09 17:34] LABS: Bilirubin Negative (Negative); Blood Trace-intact (Negative); Clarity Clear (Clear); Glucose Negative (Negative); Ketones Negative (Negative); Leukocyte Esterase Negative (Negative); Nitrite Negative (Negative); Specific Gravity 1.015 (1.005-1.025); Urobilinogen 0.2 EU/dL (Up TO 0.2)
[2019-12-09 17:40] LABS: Bacteria Rare HPF (Negative); C & S Indicated? No; Casts Negative LPF (Negative); Crystals Negative HPF (Negative); Epithelial Cells Negative HPF (Negative); Mucus Negative (Negative); Other Cells Negative (Negative); RBC 0-2 HPF (0-2); WBC Negative HPF (0-5)
== END 2019-12-09 18:00 | disposition home or self-care (01) ==
PROVIDERS: Registered Nurse Emergency; Emergency Provider Physician Assistant; PCP Nurse Practitioner
DX: M25.531 Pain in right wrist (principal); D72.89 Other specified disorders of white blood cells
CPT/HCPCS: 29125; 80053; 85652; 87040; 99284; 73110; 81003; 81015; 83605; 85025; 86140; L3650; L3908

== ENCOUNTER 2020-08-07 16:44 | Outpatient (REF) | payer OTHER, SELFPAY ==
[2020-08-09 14:47] LABS: COVID-19 RT-PCR UVMMC Result Negative (Negative)
== END 2020-08-07 17:04 ==
LOC: NCHCN 16:44
PROVIDERS: PCP Nurse Practitioner; Visit Provider Physician Assistant
DX: Z20.828 Contact with and (suspected) exposure to other viral communicable diseases (principal)
CPT/HCPCS: U0003

== ENCOUNTER 2020-08-23 09:59 | Observation (INO) | payer OTHER, SELFPAY ==
[2020-08-23] VITALS (7 sets, daily range): BP systolic 111–126; BP diastolic 66–98; PULSE 90–126; RESP 16–18; TEMP 36.8–37.4; O2SAT 96–100
--- NOTE | 2020-08-23 10:30 | DI.CT_ITS ---
EXAM: CT CHEST PE CTA CLINICAL HISTORY: chest tightness, shortness of breath. TECHNIQUE: Imaging Protocol: Axial CT angiography was performed with multi-slice acquisition and mu lti-planar and/or 3D reconstructions. CONTRAST MATERIAL: Intravenous: Omnipaque 350 Contrast volume:structured data in ml COMPARISON: CT CHEST FOR PULMONARY EMBOLUS from 03/16/2017 FINDINGS: CT angiography of the chest was performed with intravenous infusion of 100 cc of Omnipaque 350. Exam ination is somewhat motion limited with poor visualization of segmental and subsegmental pulmonary ar teries. The lungs are clear except for minimal dependent atelectasis.. No pleural effusion. Tracheobronchial tree appears intact. No evidence of pulmonary embolic disease. Thoracic aorta is of normal diameter, no thoracic aortic an eurysm or dissection, major branch vessels appear intact. No mediastinal or hilar adenopathy. Images obtained through the upper abdomen show unremarkable appearance of the visualized portions of the liver, spleen, pancreas, adrenals, and kidneys. IMPRESSION: Negative CT angiogram of the chest. No evidence of pulmonary embolic disease. RADIATION DOSE DELIVERED: 204.09mGy.cm Total DLP 204.09mGy.cm Total DLP DATA REPOSITORY: All CT scans at this facility are submitted to the National Radiology Data Registry (NRDR) Dose Index Registry (DIR) with the [employer] ([employer]). RADIATION OPTIMIZATION: All CT scans at this facility use at least one of these dose optimization te chniques: automated exposure control; mA and/or kV adjustment per patient size (includes targeted exa ms where dose is matched to clinical indication); or iterative reconstruction.
[2020-08-23] MEDS: Lactated Ringers 1,000 ML 1000 ML IV ×2 (10:31→12:30)
[2020-08-23 10:41] LABS: Abs Immature Grans 0.17 10^3/uL (0.0-0.06); Basophils % 0.3; Eosinophils % 0.9; HCT 40.6 % (36.0-46.0); HGB 13.3 g/dL (11.2-15.7); Immature Grans % 0.7; Lymphocytes % 4.3; MCH 30.4 pg (27.0-33.0); MCHC 32.8 % (32.0-36.0); MCV 92.9 fL (80-95); MPV 11.5 fL (8.0-11.0); Monocytes % 4.3; Nucleated RBC 0 %; Platelet Count 354 10^3/uL (130-400); RBC 4.37 10^6/uL (3.93-5.22); RDW 12.9 % (11.7-14.6); RDW-SD 44.2 fL
[2020-08-23 10:42] LABS: Bilirubin Negative (Negative); Blood Small (Negative); Clarity Clear (Clear); Glucose Negative (Negative); Ketones Negative (Negative); Leukocyte Esterase Negative (Negative); Nitrite Negative (Negative); Specific Gravity 1.015 (1.005-1.025); Urobilinogen 0.2 EU/dL (Up TO 0.2); pH 7.5 (5-8)
--- NOTE | 2020-08-23 10:45 | RT.EKG_ITS ---
APPROVED REPORT Exam: Resting ECG Patient Location: E HR:113 bpm ECG Measurements Heart Rate 113 AXIS OK 160 P 72 QRSd 83 QRS -9 QT 328 T 2 QTc 450 Conclusion Sinus tachycardia...rate> 99 Low voltage, precordial leads...precordial leads <1.0mV twave inv anterior unchanged from prior
--- NOTE | 2020-08-23 10:48 | W.ED.GENAD ---
Discharge Plan Disposition Patient Disposition: [facility] INPATIENT Condition: Serious Discharge Details Clinical Impression: Leukocytosis, Cough, UTI (urinary tract infection) Primary Care Provider: Marie Rosales ED Provider: Antonio Rodriguez Home Meds and New Rx's Prescriptions: No Action omega-3 fatty acids 1,000 mg capsule 1,000 mg PO DAILY RF: 0 ascorbic acid (vitamin C) 500 mg tablet 500 mg PO DAILY RF: 0 magnesium oxide 500 mg capsule 500 mg PO DAILY RF: 0 clobetasol 0.05 % ointment 1 applic TP .COMPLEX Qty: 0 RF: 1 nitrofurantoin monohyd/m-cryst [Macrobid] 100 mg capsule 100 mg PO Q12H 7 Days Qty: 14 RF: 0 vitamin B complex Elixir PO DAILY RF: 0 cholecalciferol (vitamin D3) [Vitamin D3] 125 mcg (5,000 unit) Tablet 125 mcg PO DAILY RF: 0 lorazepam [Ativan] 0.5 mg tablet 0.5 mg PO TID PRN (Reason: anxiety) Qty: 3 RF: 0 Medical Decision Making 1055??45-year-old female here with fever, cough, shortness of breath, hypoxia last night, chest tightness, symptoms started last night and have persisted. Patient is saturating well in no respiratory distress but does have rales left lower lung field. She is tachycardic, normotensive. Concern for Covid. Plan to send Covid testing. Consider acute pulmonary embolism. Will obtain CT of the chest. We will give IV fluid bolus and reassess. -- Screening ECG was obtained and reviewed and interpreted by me: Sinus tachycardia 113 bpm, T wave inversions are noted precordially, please see report. --Patient reassessed multiple times. Tachycardia improving with IV fluid bolus. --CT of the chest was reviewed and interpreted by radiology: FINDINGS: Pulmonary arteries: Normal. No pulmonary emboli. Aorta: Unremarkable. No aortic aneurysm. No aortic dissection. Lungs: There is dependent atelectasis in the lung bases. No consolidation. No masses. Pleural space: Unremarkable. No pneumothorax. No pleural effusion. Heart: Unremarkable. No cardiomegaly. No pericardial effusion. Lymph nodes: Unremarkable. No enlarged lymph nodes. Bones/joints: Unremarkable. No acute fracture. Soft tissues: Unremarkable. Other findings: The examination is limited due to patient motion. IMPRESSION: No evidence of pulmonary embolus or aortic dissection. Patient was reassessed and noted to have headache after the CT scan. She states she has had headache in the past with contrast. Labs reviewed and significant leukocytosis noted. Lactate normal. LFTs normal. Troponin normal. Initial urinalysis contaminated. A repeat urinalysis was obtained and notable for mild hematuria. Consider partially treated urinary tract infection and pyelonephritis. Patient was reassessed and abdominal tenderness more focal to right lower quadrant. Heart rate improved but still slightly tachycardic. Consider septic stone versus appendectomy. Will obtain CT of the abdomen pelvis to assess for acute intra-abdominal surgical process. 1640 --CT the abdomen pelvis was reviewed and interpreted by radiology: No acute disease in the abdomen or pelvis. No urolithiasis or renal obstruction. Contrast excretion from an earlier study. Of note lungs noted to have bilateral lower lobe atelectasis. Patient reassessed remained stable. Given respiratory symptoms in combination with urinary symptoms refractory to Macrobid and Keflex, and significant leukocytosis, I will start patient on fluoroquinolone. Levaquin 750 mg to be administered. Blood cultures and Covid test are pending. Patient remains persistently tachycardic at 105 despite 2 L of crystalloid. Plan to admit the patient for further testing and continued IV fluids. Concern for bacteremia. Blood cultures pending. 170 --I called and spoke with Dr. Carroll, on-call hospitalist, discussed ED presentation and course, he will admit the patient. He recommends holding off on fluoroquinolone until he is able to assess the patient. Patient received oral Levaquin 750 mg as I was having conversation with Dr. Carroll. Will hold additional antibiotics at this time. Patient has had multiple rhinoplasty procedures and is refusing nasopharyngeal Covid swab. An anterior nasal swab was performed with plan to send this out tomorrow when send out testing is again available. Patient is to remain a PUI. HPI General Mode of arrival: ambulatory. Date/Time Provider Initiated Documentation: 08/23/20 10:02. Limitations to Documentation: no limitations. Information obtained by: patient. HPI Narrative: 45-year-old female presents with chief complaint of shortness of breath. Patient notes fever, cough, shortness of breath and associated chest tightness that started last night and has persisted today. Symptoms are moderate with no modifiers. Patient denies known Covid exposure. She states last night symptoms were worse and felt like she had trouble getting air in. She checked her pulse ox and it was in the low 90s. Patient does she did have a family gathering around [place] but states that Annelise had quarantine and had negative Covid testing. Patient is concerned that symptoms may be related to Macrobid which she started a couple days ago for urinary tract infection. Patient has had dysuria for the past week or so. She was initially treated with 3 days of Keflex and symptoms persisted. She was then started on Macrobid after phone consultation with gynecology. Related Data Home Medications Medication Instructions Recorded Confirmed magnesium oxide 500 mg capsule 500 mg PO DAILY cap 06/06/18 08/23/20 clobetasol 0.05 % topical ointment 1 applic TP .COMPLEX #0 gm 08/11/19 08/23/20 lorazepam [Ativan] 0.5 mg PO TID PRN #3 tab 11/14/19 08/23/20 ascorbic acid (vitamin C) 500 mg 500 mg PO DAILY 01/31/20 08/23/20 tablet omega-3 fatty acids 1,000 mg 1,000 mg PO DAILY 01/31/20 08/23/20 capsule nitrofurantoin 100 mg PO Q12H 7 Days #14 cap 08/22/20 08/23/20 monohydrate/macrocrystals 100 mg capsule cholecalciferol (vitamin D3) 125 mcg PO DAILY 08/23/20 08/23/20 [Vitamin D3] vitamin B complex ml PO DAILY 08/23/20 Previous Rx's Medication Instructions Recorded clobetasol 0.05 % topical ointment 1 applic TP .COMPLEX #0 gm 08/11/19 lorazepam [Ativan] 0.5 mg PO TID PRN #3 tab 11/14/19 nitrofurantoin 100 mg PO Q12H 7 Days #14 cap 08/22/20 monohydrate/macrocrystals 100 mg capsule Allergies Allergy/AdvReac Type Severity Reaction Status Date / Time morphine Allergy Severe Anaphylaxsi Verified 08/23/20 10:12 s sulfamethoxazole Allergy Unknown Verified 08/23/20 10:12 [From Bactrim] trimethoprim [From Bactrim] Allergy Unknown Verified 08/23/20 10:12 clobetasol AdvReac Mild ? S/E from Verified 08/23/20 10:12 cream. Pt given clobetasol oinment w/o problems. General Stated Complaint: RespSymp PAMELA: 3 Review of Systems All systems reviewed & are unremarkable except as noted in HPI and below Constitutional Constitutional: Reports chills and Reports fever(s) Cardiovascular Cardiovascular: Reports as per HPI, Reports chest pain and Reports dyspnea Respiratory Respiratory: Reports cough and Reports dyspnea [facility] Medical History (Updated 08/23/20 @ 16:54 by Antonio Rodriguez MD) Anemia Anxiety (03/23/17) Chronic constipation (04/09/14) seen by Yogesh Murrell 2013 who recommended GI at [facility] Constipation, chronic seen by Yogesh Murrell who recommended GI consult. Cystitis, subacute 11/22/2019 empiric treatment with Pyridium and cephalexin x3 days Elevated hemoglobin A1c 2012 HbgA1c 6.2. 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 Pt treated for UTI 02/2014. Migraine headache with aura Neurological symptoms Pt having MRI of brain for sx c/w MS. Panic attacks (03/23/17) Pelvic pain in female R>L side. Longstanding pt assoc with ovulation. Unable to evangelina OCPs secondary to GILES and GI S/E. Uterine fibroid 08/2014 fundal fibroid [id number] 12/2014 fundal fibroid [id number]. 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 effective without side effects. Surgical History nasal surgery Tooth extraction Family History Mother Neoplasm Lung, dx:2016-Smoker Brother No problems noted. Father , Heart Attack Heart disease Other Ovarian cancer Social History Smoking/Tobacco Use Status: Never Smoking risk assessment performed?: Yes Alcohol Intake: current Drug use: Never Household members: spouse, children and other Details: Amandeep, Romel, autistic with violent behavior, [id number], [id number] Number of Children: 3 current occupation: [email or web address] Sexually active: Yes (Uses 's vasectomy for contraception) Do you feel safe at home: Yes Do you feel safe in your relationship?: Yes Female Reproductive History Menstrual control method: permanent sterilization and other History History 3 Para Hx # Term Pregnancies Multiple births Hx # Pregnancies 3 Ectopic pregnancies AB induced Hx Number of Living Children 3 AB spontaneous Exam Const General: cooperative and no acute distress HENMT Mouth: moist mucous membranes Eyes Conjunctivae: normal conjunctivae Sclera: normal sclerae Neck Neck: trachea midline and supple Resp Effort & Inspection: cough, not labored and no respiratory distress Auscultation: rales on the right in the lower lung jarrett, no rhonchi and no wheezes Cardio Rhythm: regular rhythm GI Palpation: soft, not firm, no guarding, no masses, not rigid and tender suprapubicly Skin General skin exam: no rashes or lesions noted Neuro General: patient alert, patient awake, patient oriented x3 and tone normal Extrem General: no calf tenderness and no edema Psych Appearance: grossly normal Mental Status: mental status grossly normal Speech and Movement: speech and movement normal Course Vital Signs Vital signs: Vital Signs Temperature 37.3 C 08/23/20 10:05 Pulse 126 H 08/23/20 10:05 Respiratory Rate 16 08/23/20 10:05 Blood Pressure 120/92 H 08/23/20 10:05 Pulse Oximetry 96 08/23/20 10:05 Temperature 37.3 C 08/23/20 10:05 Temperature Source Oral 08/23/20 10:05 Pulse 126 H 08/23/20 10:05 Respiratory Rate 16 08/23/20 10:05 Respiratory Effort Non-Labored 08/23/20 10:45 Respiratory Depth Normal 08/23/20 10:45 Blood Pressure 120/92 H 08/23/20 10:05 Blood Pressure Position Sitting 08/23/20 10:05 Pulse Oximetry 96 08/23/20 10:05 Oxygen Delivery Method Room Air 08/23/20 10:05 Oxygen Flow Rate 0 08/23/20 10:05 Pain Level 3 08/23/20 10:05 Lab/Test Results Lab/Test Results: Laboratory Tests Range/Units 08/23/20 10:25 Urine Color (Yellow) Yellow Urine Clarity (Clear) Clear Urine pH (5-8) 7.5 Ur Specific [place] (1.005-1.025) 1.015 Urine Protein (Negative) mg/dL Negative Urine Ketones (Negative) mg/dL Negative Urine Blood (Negative) Small H Urine Nitrite (Negative) Negative Urine Bilirubin (Negative) Negative Urine Urobilinogen (Up TO 0.2) EU/dL 0.2 Ur Leukocyte Esterase (Negative) Negative Urine Glucose (Negative) mg/dL Negative
[2020-08-23 10:52] LABS: ALT 22 U/L (14-59); AST 14 U/L (15-37); Albumin 3.9 g/dL (3.4-5.0); Alkaline Phosphatase 50 U/L (46-116); Anion Gap 12.1 mmol/L (3-11); BUN 8 mg/dL (7-18); Bilirubin, Total 0.7 mg/dL (0.2-1.0); CO2 23.9 mmol/L (21.0-32.0); CREATININE 0.84 mg/dL (0.55-1.02); Calcium 8.9 mg/dL (8.5-10.1); Chloride 100 mmol/L (98-107); Glucose 120 mg/dL (74-106); Potassium 3.7 mmol/L (3.5-5.1); Sodium 136 mmol/L (136-145); Total Protein 7.6 g/dL (6.4-8.2)
[2020-08-23 10:53] LABS: Absolute Basophil Count 0.08 10^3/uL (0.0-0.2); Absolute Eosinophil Count 0.23 10^3/uL (0.0-0.7); Absolute Lymphocyte Count 1.12 10^3/uL (1.2-3.4); Absolute Monocyte Count 1.12 10^3/uL (0.1-0.8); Absolute Neutrophil Count 23.31 10^3/uL (1.2-6.7); Neutrophils % 89.5; WBC 26.05 10^3/uL (4.4-10.8)
[2020-08-23 10:54] LABS: Diff Comment Agrees w/ Instrument; RBC Morphology Normal
[2020-08-23 10:59] LABS: Bacteria Rare HPF (Negative); C & S Indicated? No/Sq. Contamination; Casts Negative LPF (Negative); Crystals Negative HPF (Negative); Epithelial Cells Moderate HPF (Negative); Mucus Negative (Negative); Other Cells Few Transitional (Negative)
[2020-08-23] MEDS: Omnipaque 350 MG/ML 100 ML BTL IJ (11:31)
[2020-08-23] MEDS: Normal Saline 20 ML VIAL IV ×2 (11:32→11:33)
[2020-08-23] MEDS: Normal Saline Flush 10 ML SYR IVP (11:33)
[2020-08-23 11:34] LABS: Lactate 1.2 mmol/L (0.6-1.4)
--- NOTE | 2020-08-23 12:27 | DI.VRAD_ITS ---
PROCEDURE INFORMATION: Exam: CT Angiography Chest With Contrast Exam date and time: 08/23/2020 11:35 AM Age: 45 years old Clinical indication: Cough and shortness of breath and wheezing and other: Chest tightness; Additional info: PT says she was unable to hold her breath during exam - not repeated due to minimal motion seen on images. TECHNIQUE: Imaging protocol: Computed tomographic angiography of the chest with intravenous contrast. 3D rendering (Not supervised by radiologist): MIP and/or 3D reconstructed images were created by the technologist. Radiation optimization: All CT scans at this facility use at least one of these dose optimization techniques: automated exposure control; mA and/or kV adjustment per patient size (includes targeted exams where dose is matched to clinical indication); or iterative reconstruction. Contrast material: OMNIPAQUE 350; Contrast volume: 100 ml; Contrast route: INTRAVENOUS (IV); COMPARISON: CT CHEST FOR PULMONARY EMBOLUS 03/16/2017 11:50 PM FINDINGS: Pulmonary arteries: Normal. No pulmonary emboli. Aorta: Unremarkable. No aortic aneurysm. No aortic dissection. Lungs: There is dependent atelectasis in the lung bases.. No consolidation. No masses. Pleural space: Unremarkable. No pneumothorax. No pleural effusion. Heart: Unremarkable. No cardiomegaly. No pericardial effusion. Lymph nodes: Unremarkable. No enlarged lymph nodes. Bones/joints: Unremarkable. No acute fracture. Soft tissues: Unremarkable. Other findings: The examination is limited due to patient motion. IMPRESSION: No evidence of pulmonary embolus or aortic dissection. Dictated and Authenticated by: Michael Wilder MD. Ordering:DELIA Alvarez MD
[2020-08-23 13:29] LABS: Bilirubin Negative (Negative); Blood Small (Negative); Clarity Clear (Clear); Glucose Negative (Negative); Ketones Negative (Negative); Leukocyte Esterase Negative (Negative); Nitrite Negative (Negative); Specific Gravity 1.015 (1.005-1.025); Urobilinogen 0.2 EU/dL (Up TO 0.2)
[2020-08-23 13:41] LABS: Epithelial Cells Rare HPF (Negative); Other Cells Negative (Negative); WBC Negative HPF (0-5)
[2020-08-23 13:42] LABS: Bacteria Rare HPF (Negative); C & S Indicated? No; Casts Negative LPF (Negative); Crystals Negative HPF (Negative); Mucus Negative (Negative)
[2020-08-23 13:52] LABS: Troponin I < 0.05 ng/mL (<0.06)
--- NOTE | 2020-08-23 14:00 | DI.CT_ITS ---
EXAM: CT RENAL COLIC WO INDICATION: uti, flank pain, suprapubic pain, hematuria. COMPARISON: No exams were available for comparison TECHNIQUE: CT examination was performed without contrast administration. This examination was obtai diana approximately 4 hours following a contrast enhanced chest CT angiogram. FINDINGS: Images obtained through the lung bases are unremarkable. Visualized portions of the liver and splee n appear intact. Visualized portions of the pancreas are unremarkable. Gallbladder and bile ducts are CT normal. Abdominal aorta is of normal diameter. No significant abdominal wall hernia. No significant abdominal or pelvic adenopathy. Adrenals appear normal bilaterally. The kidneys are normal in size and shape. There is no evidence of a renal mass, hydronephrosis, or n ephrolithiasis. There is contrast excretion in normal appearing renal collecting systems and ureters bilaterally from recent chest CT angiogram with contrast. Urinary bladder is opacified but nearly e mpty and grossly unremarkable. No ureteral dilatation or calcification identified. IMPRESSION: Negative abdominal and pelvic CT. No urinary tract calcification or obstruction. RADIATION DOSE DELIVERED: 820.11mGy.cm DLP 820.11mGy.cm Total DLP
--- NOTE | 2020-08-23 16:21 | DI.VRAD_ITS ---
Addendum created by Ocsar Araujo MD on 08/23/2020 4:21:45 PM EST: Correction: Mild vicarious contrast excretion to the gallbladder. Initial report created on 08/23/2020 4:21:10 PM EST: PROCEDURE INFORMATION: Exam: CT Abdomen And Pelvis Without Contrast Exam date and time: 08/23/2020 2:05 PM Age: 45 years old Clinical indication: Other: Flank and suprapubic pain; Patient HX: Hematuria, UTI TECHNIQUE: Imaging protocol: Computed tomography of the abdomen and pelvis without contrast. Radiation optimization: All CT scans at this facility use at least one of these dose optimization techniques: automated exposure control; mA and/or kV adjustment per patient size (includes targeted exams where dose is matched to clinical indication); or iterative reconstruction. COMPARISON: 1. US PELVIS TRANSVAGINAL 08/10/2019 8:[address] angiogram of the chest 08/23/2020 11:31 a.m. FINDINGS: Limitations: None. Lungs: Bilateral lower lobe lung atelectasis. Liver: Normal. Gallbladder and bile ducts: Mild very carious contrast excretion to the gallbladder, otherwise, normal. Pancreas: Normal. Spleen: Normal. Adrenal glands: Normal. Kidneys and ureters: Contrast is present within the bilateral renal pelves and proximal ureters. Normal kidneys and ureters. Stomach and bowel: Normal stomach and small bowel. Appendix: Normal. Intraperitoneal space: No ascites, pneumoperitoneum or peritoneal lesion. Vasculature: Normal. Lymph nodes: None enlarged or otherwise suspicious. Urinary bladder: Normal opacified but mostly collapsed bladder. Reproductive: Multiple nabothian cysts, otherwise, normal uterus. Normal ovaries. Bones/joints: No acute fracture or suspicious osseous lesion. Soft tissues: No mass or abdominal hernia. IMPRESSION: No acute disease in the abdomen or pelvis. No uroliths or renal obstruction. Contrast excretion from an earlier study. Dictated and Authenticated by: Oscar Araujo MD. Ordering:DELIA Alvarez MD
--- NOTE | 2020-08-23 16:45 | NUR.NOTE ---
Referral faxed to [facility] for PCP f/u early week of 08/26/20.Nursing Note:
[2020-08-23] MEDS: levoFLOXacin 500 MG, levoFLOXacin 250 MG 750 MG PO (17:03)
--- NOTE | 2020-08-23 17:50 | W.PM.HP.N ---
Date of service: 08/23/20 Time of Service: 17:51 Assessment and Plan Assessment and plan (1) Dysuria: Status: Acute Assessment and plan: Unclear, possibly overlapping issues. Firstly, unclear whether she had, or has, UTI, and unfortunately there is no culture from original treatment. Also, unclear whether the SOB from yesterday was in fact a reaction to the Macrobid, part of whatever syndrome she may have, or early symptom of emerging illness. One possible scenario that might tie this together would be a partially treated UTI, with drug reaction. Regardless her chest CT is reassuring as are the RR and sats. The marked leukocytosis seems out of proportion to her condition otherwise, perhaps an element of leukemoid reaction? Regardless would not make this the basis of treatment absent other indications. I think the essential task here is to obtain a diagnosis and at this point I would favor watchful waiting, though should her condition deteriorate then empiric antibiotics would be proper. It is possible we may get some results from the urine today though it was less than 24 hr since abx so this is less likely than more. In sum, will wait for blood and urine cxx, and trend white count. History of Present Illness History of Present Illness Chief Complaint: dysuria, SOB Narrative: 45 female -- 1 1/2-2 weeks ago developed urgency and frequency. OTC test for infection reported to be positive, was started on Keflex x 3 days. Note that no cx obtained. Some improvement, then recurrent sxx this past week, along with some bilateral flank pain. 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 One hour following second dose (last night), developed SOB, but this has since resolved. States she also had temp to 100.4. In ER w/u of note for sinus tach 120s, low grade microscopic hematuria (5-10) and marked leukocytosis (26K). CTA chest shows only basilar atelectasis, neg for PE or consolidation. CT abdomen negative. Received IVF and 750 Levaquin. Admitted for further evaluation. At present time reiterates that any SOB has since resolved and she believes this was a reaction to the Macrobid. 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 No known exposures. Review of Systems All systems reviewed & are unremarkable except as noted in HPI and below [facility] Medical History (Updated 08/23/20 @ 18:03 by Rich Carroll MD) Anemia Anxiety (03/23/17) Chronic constipation (04/09/14) seen by Yogesh Murrell 2013 who recommended GI at [facility] [place] Constipation, chronic seen by Yogesh Murrell who recommended GI consult. Cystitis, subacute 11/22/2019 empiric treatment with Pyridium and cephalexin x3 days Elevated hemoglobin A1c 2012 HbgA1c 6.2. 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 Pt treated for UTI 02/2014. Migraine headache with aura Neurological symptoms Pt having MRI of brain for sx c/w MS. Panic attacks (03/23/17) Pelvic pain in female R>L side. Longstanding pt assoc with ovulation. Unable to evangelina OCPs secondary to GILES and GI S/E. Uterine fibroid 08/2014 fundal fibroid [id number] 12/2014 fundal fibroid [id number]. 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 effective without side effects. Surgical History nasal surgery Tooth extraction Family History Mother Neoplasm Lung, dx:2016-Smoker Brother No problems noted. 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 Sexually active: Yes (Uses 's vasectomy for contraception) Do you feel safe at home: Yes Do you feel safe in your relationship?: Yes Female Reproductive History Menstrual control method: permanent sterilization and other History History 3 Para Hx # Term Pregnancies Multiple births Hx # Pregnancies 3 Ectopic pregnancies AB induced Hx Number of Living Children 3 AB spontaneous Meds Home Medications and Allergies Home Medications Medication Instructions Recorded Confirmed Type magnesium oxide 500 mg capsule 500 mg PO DAILY cap 06/06/18 08/23/20 History clobetasol 0.05 % topical ointment 1 applic TP .COMPLEX #0 gm 08/11/19 08/23/20 Rx lorazepam [Ativan] 0.5 mg PO TID PRN #3 tab 11/14/19 08/23/20 Rx ascorbic acid (vitamin C) 500 mg 500 mg PO DAILY 01/31/20 08/23/20 History tablet omega-3 fatty acids 1,000 mg 1,000 mg PO DAILY 01/31/20 08/23/20 History capsule nitrofurantoin 100 mg PO Q12H 7 Days #14 cap 08/22/20 08/23/20 Rx monohydrate/macrocrystals 100 mg capsule cholecalciferol (vitamin D3) 125 mcg PO DAILY 08/23/20 08/23/20 History [Vitamin D3] vitamin B complex ml PO DAILY 08/23/20 History Allergies Allergy/AdvReac Type Severity Reaction Status Date / Time morphine Allergy Severe Anaphylaxsi Verified 08/23/20 10:12 s sulfamethoxazole Allergy Unknown Verified 08/23/20 10:12 [From Bactrim] trimethoprim [From Bactrim] Allergy Unknown Verified 08/23/20 10:12 clobetasol AdvReac Mild ? S/E from Verified 08/23/20 10:12 cream. Pt given clobetasol oinment w/o problems. Exam Narrative Exam Narrative: 111/78, 104, 37.4, 18, 96% RA. HEENT unremarkable; neck supple w/o JVD, lungs few fine basilar rales, clear with cough; heart tachy/regular w/o MRG; abdomen soft and NT; back w/o CVAT; extremities w/o edema; neuro Ox3 nonfocal Results Labs Result diagrams: 08/23/20 10:30 08/23/20 10:30 Labs: Laboratory Results - last 24 hr 08/23/20 08/23/20 08/23/20 10:25 10:30 10:30 WBC 26.05 H* RBC 4.37 Hgb 13.3 Hct 40.6 MCV 92.9 MCH 30.4 MCHC 32.8 RDW 12.9 Plt Count 354 MPV 11.5 H Immature Gran % 0.7 Neutrophils % 89.5 Lymphocytes % 4.3 Monocytes % 4.3 Eosinophils % 0.9 Basophils % 0.3 Nucleated RBC % 0 Absolute Neutrophils 23.31 H Absolute Lymphocytes 1.12 L Absolute Monocytes 1.12 H Absolute Eosinophils 0.23 Absolute Basophils 0.08 RBC Morphology Normal VBG Lactate Sodium 136 Potassium 3.7 Chloride 100 Carbon Dioxide 23.9 Anion Gap 12.1 H BUN 8 Creatinine 0.84 Estimated GFR/1.73 m2 >= 60.00 Glucose 120 H Calcium 8.9 Total Bilirubin 0.7 AST 14 L ALT 22 Alkaline Phosphatase 50 Troponin I Total Protein 7.6 Albumin 3.9 Urine Color Yellow Urine Clarity Clear Urine pH 7.5 Ur Specific [place] 1.015 Urine Protein Negative Urine Ketones Negative Urine Blood Small H Urine Nitrite Negative Urine Bilirubin Negative Urine Urobilinogen 0.2 Ur Leukocyte Esterase Negative Urine RBC 5-10 H Urine WBC 3-5 Ur Epithelial Cells Moderate Urine Crystals Negative Urine Bacteria Rare Urine Casts Negative Urine Mucus Negative Urine Other Few transitional Ur Culture Indicated? No/sq. contamination Urine Glucose Negative 08/23/20 08/23/20 08/23/20 11:29 11:29 13:22 WBC RBC Hgb Hct MCV MCH MCHC RDW Plt Count MPV Immature Gran % Neutrophils % Lymphocytes % Monocytes % Eosinophils % Basophils % Nucleated RBC % Absolute Neutrophils Absolute Lymphocytes Absolute Monocytes Absolute Eosinophils Absolute Basophils RBC Morphology VBG Lactate 1.2 Sodium Potassium Chloride Carbon Dioxide Anion Gap BUN Creatinine Estimated GFR/1.73 m2 Glucose Calcium Total Bilirubin AST ALT Alkaline Phosphatase Troponin I < 0.05 Cancelled Total Protein Albumin Urine Color Urine Clarity Urine pH Ur Specific [place] Urine Protein Urine Ketones Urine Blood Urine Nitrite Urine Bilirubin Urine Urobilinogen Ur Leukocyte Esterase Urine RBC Urine WBC Ur Epithelial Cells Urine Crystals Urine Bacteria Urine Casts Urine Mucus Urine Other Ur Culture Indicated? Urine Glucose 08/23/20 13:25 WBC RBC Hgb Hct MCV MCH MCHC RDW Plt Count MPV Immature Gran % Neutrophils % Lymphocytes % Monocytes % Eosinophils % Basophils % Nucleated RBC % Absolute Neutrophils Absolute Lymphocytes Absolute Monocytes Absolute Eosinophils Absolute Basophils RBC Morphology VBG Lactate Sodium Potassium Chloride Carbon Dioxide Anion Gap BUN Creatinine Estimated GFR/1.73 m2 Glucose Calcium Total Bilirubin AST ALT Alkaline Phosphatase Troponin I Total Protein Albumin Urine Color Yellow Urine Clarity Clear Urine pH 8.0 Ur Specific [place] 1.015 Urine Protein Negative Urine Ketones Negative Urine Blood Small H Urine Nitrite Negative Urine Bilirubin Negative Urine Urobilinogen 0.2 Ur Leukocyte Esterase Negative Urine RBC 5-10 H Urine WBC Negative Ur Epithelial Cells Rare Urine Crystals Negative Urine Bacteria Rare Urine Casts Negative Urine Mucus Negative Urine Other Negative Ur Culture Indicated? No Urine Glucose Negative Last Vital Signs Temp 37.4 C 08/23/20 16:41 Pulse 104 H 08/23/20 16:41 Resp 18 08/23/20 16:41 BP 111/78 08/23/20 16:41 Pulse Ox 96 08/23/20 16:41 COVID-19 Screening Have you, or household traveled for leisure in last 14 days?: No Had IN PERSON contact w/suspected or confirmed C-19 person: No
[2020-08-24 07:03] LABS: HCT 35.9 % (36.0-46.0); HGB 11.5 g/dL (11.2-15.7); MCH 29.9 pg (27.0-33.0); MCV 93.2 fL (80-95); MPV 11.4 fL (8.0-11.0); Platelet Count 284 10^3/uL (130-400); RBC 3.85 10^6/uL (3.93-5.22); RDW 13.2 % (11.7-14.6); WBC 8.43 10^3/uL (4.4-10.8)
[2020-08-24 07:45] VITALS: BP 110/72; PULSE 89; RESP 18; TEMP 36.4; O2SAT 99
--- NOTE | 2020-08-24 10:26 | DSE_ITS ---
Date of service: 08/24/20 Time of Service: 10:26 DS: Diagnosis Discharge Diagnosis (1) Dysuria: Start date: 08/24/20 Start time: : Status: Resolved Asessment and Plan: No evidence of UTI by labs, patient feels this may have been more anaphylaxis from macrobid, as her son has many allergies, given urinalysis and resolution of symptoms so quickly this appears to be likely. WBC normalized, she was started on levaquin will give total 3 day dose. She is feeling much better and doing well For return of possible symptoms due to allergy will give hydroxyzine and recommend pepcid as needed. She denies CP, SOB, N/V/D. Above case discussed with Dr. Cox who is in agreement. Discharge Plan Disposition Patient Disposition: HOME Condition: Good Discharge Details Reason For Visit: DYSURIA, SOB, LEUKOCYTOSIS Admit Date/Time: 08/23/20 18:13 Admit Provider: Rich Carroll Attending Provider: Rich Carroll Primary Care Provider: Marie Rosales Hospital Course Hospital Course: 45 female -- 1 1/2-2 weeks ago developed urgency and frequency. OTC test for infection reported to be positive, was started on Keflex x 3 days. Note that no cx obtained. Some improvement, then recurrent sxx this past week, along with some bilateral flank pain. 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 One hour following second dose (last night), developed SOB, but this has since resolved. States she also had temp to 100.4. ER w/u of note for sinus tach 120s, low grade microscopic hematuria (5-10) and marked leukocytosis (26K). CTA chest shows only basilar atelectasis, neg for PE or consolidation. CT abdomen negative. Received IVF and 750 Levaquin. Admitted for further evaluation. SOB resolved last night and she believed this was a reaction to the Macrobid. WBC count normalized to 8 will send her home with 2 days of levaquin, hydroxizine as needed and OTC pepcid at needed. She denies CP, SOB, N/V/D. She states she feels great RA sat 99% Total time spent discharging 35 mins Home Meds and New Rx's Prescriptions: New levofloxacin 750 mg tablet 750 mg PO DAILY Qty: 2 RF: 0 hydroxyzine HCl 25 mg tablet 25 mg PO TID PRNQty: 10 RF: 0 Continued omega-3 fatty acids 1,000 mg capsule 1,000 mg PO DAILY RF: 0 ascorbic acid (vitamin C) 500 mg tablet 500 mg PO DAILY RF: 0 magnesium oxide 500 mg capsule 500 mg PO DAILY RF: 0 clobetasol 0.05 % ointment 1 applic TP .COMPLEX Qty: 0 RF: 1 vitamin B complex Elixir PO DAILY RF: 0 cholecalciferol (vitamin D3) [Vitamin D3] 125 mcg (5,000 unit) Tablet 125 mcg PO DAILY RF: 0 lorazepam [Ativan] 0.5 mg tablet 0.5 mg PO TID PRN (Reason: anxiety) Qty: 3 RF: 0 Discontinued nitrofurantoin monohyd/m-cryst [Macrobid] 100 mg capsule 100 mg PO Q12H 7 Days Qty: 14 RF: 0 Discharge Instructions Instructions: Leukocytosis (ED), Acute Cough (ED) Additional Instructions: Please drink plenty of fluids and stay hydrated. Take antibiotic as prescribed. You have blood cultures and urine cultures pending. We will not call you if these are negative Take hydroxyzine if needed for hives Take pepcid as well this is over the counter Stand Alone Forms: Nursing Discharge Form Referrals: Nayla Jj MD [ [facility] STAFF PHYSICIAN] - 08/30/20 Activity:: Activity as Tolerated Equipment/Supplies:: No Equipment Needed Diet:: As Tolerated Discharge Orders Discharge Orders: Discharge Order (Routine); Ordered 08/24/20 Ordered By: Miguelina Sherwood DS: Summary Status at Discharge Functional status at discharge: independent ambulation Overall status at discharge: patient is back to baseline Mental Status: mental status grossly normal Speech and Movement: speech and movement normal Mood: congruent mood Affect: normal affect Exam Narrative Exam Narrative: 99% RA. HEENT unremarkable; neck supple w/o JVD, lungs clear with cough only on deep inspiration; heart RRR w/o MRG; abdomen soft and NT; back w/o CVAT; extremities w/o edema; neuro Ox3 nonfocal Psych Mental Status: mental status grossly normal Speech and Movement: speech and movement normal Mood: congruent mood Affect: normal affect DS: Data Vitals/I&O Vitals and I&O: Vital Signs Temperature 36.4 C L 08/24/20 07:45 Temperature Source Tympanic 08/24/20 07:45 Pulse 89 08/24/20 07:45 Pulse Rhythm Regular 08/24/20 07:45 Respiratory Rate 18 08/24/20 07:45 Respiratory Effort Non-Labored 08/24/20 07:45 Respiratory Depth Normal 08/24/20 07:45 Respiratory Pattern Normal 08/24/20 07:45 Blood Pressure 110/72 08/24/20 07:45 Blood Pressure Position Sitting 08/23/20 10:05 Pulse Oximetry 99 08/24/20 07:45 Oxygen Delivery Method Room Air 08/24/20 07:45 Oxygen Flow Rate 0 08/24/20 07:45 Pain Level 0 08/24/20 07:45 Intake & Output 08/23/20 08/23/20 08/24/20 11:59 23:59 11:59 Intake Total 1009 Output Total 900 / 900 1300 / 1300 Balance 1010 / 1110 100 / 1110 -1300 / -1300 Weight 64.41 kg Intake: IV 1009 Output: Urine 900 / 900 1300 / 1300 Other: Urine Color Yellow Urine Appearance Clear Clear Voiding Methods Toilet Data Completed and Pending Completed studies during hospitalization [Text1]: COMPARISON: CT CHEST FOR PULMONARY EMBOLUS 03/16/2017 11:50 PM FINDINGS: Pulmonary arteries: Normal. No pulmonary emboli. Aorta: Unremarkable. No aortic aneurysm. No aortic dissection. Lungs: There is dependent atelectasis in the lung bases.. No consolidation. No masses. Pleural space: Unremarkable. No pneumothorax. No pleural effusion. Heart: Unremarkable. No cardiomegaly. No pericardial effusion. Lymph nodes: Unremarkable. No enlarged lymph nodes. Bones/joints: Unremarkable. No acute fracture. Soft tissues: Unremarkable. Other findings: The examination is limited due to patient motion. IMPRESSION: No evidence of pulmonary embolus or aortic dissection. Liver: Normal. Gallbladder and bile ducts: Mild very carious contrast excretion to the gallbladder, otherwise, normal. Pancreas: Normal. Spleen: Normal. Adrenal glands: Normal. Kidneys and ureters: Contrast is present within the bilateral renal pelves and proximal ureters. Normal kidneys and ureters. Stomach and bowel: Normal stomach and small bowel. Appendix: Normal. Intraperitoneal space: No ascites, pneumoperitoneum or peritoneal lesion. Vasculature: Normal. Lymph nodes: None enlarged or otherwise suspicious. Urinary bladder: Normal opacified but mostly collapsed bladder. Reproductive: Multiple nabothian cysts, otherwise, normal uterus. Normal ovaries. Bones/joints: No acute fracture or suspicious osseous lesion. Soft tissues: No mass or abdominal hernia. IMPRESSION: No acute disease in the abdomen or pelvis. No uroliths or renal obstruction. Contrast excretion from an earlier study. Labs on day of discharge: Labs from last 24 hours 08/24/20 08/23/20 08/23/20 06:50 13:25 13:22 WBC 8.43 D RBC 3.85 L Hgb 11.5 Hct 35.9 L MCV 93.2 MCH 29.9 MCHC 32.0 RDW 13.2 Plt Count 284 MPV 11.4 H Immature Gran % Neutrophils % Lymphocytes % Monocytes % Eosinophils % Basophils % Nucleated RBC % Absolute Neutrophils Absolute Lymphocytes Absolute Monocytes Absolute Eosinophils Absolute Basophils RBC Morphology VBG Lactate Sodium Potassium Chloride Carbon Dioxide Anion Gap BUN Creatinine Estimated GFR/1.73 m2 Glucose Calcium Total Bilirubin AST ALT Alkaline Phosphatase Troponin I Cancelled Total Protein Albumin Urine Color Yellow Urine Clarity Clear Urine pH 8.0 Ur Specific [place] 1.015 Urine Protein Negative Urine Ketones Negative Urine Blood Small H Urine Nitrite Negative Urine Bilirubin Negative Urine Urobilinogen 0.2 Ur Leukocyte Esterase Negative Urine RBC 5-10 H Urine WBC Negative Ur Epithelial Cells Rare Urine Crystals Negative Urine Bacteria Rare Urine Casts Negative Urine Mucus Negative Urine Other Negative Ur Culture Indicated? No Urine Glucose Negative SARS-CoV-2 (PCR) Nasopharyn COVID-19 PCR Ref Test Perform Site 08/23/20 08/23/20 08/23/20 11:29 11:29 10:40 WBC RBC Hgb Hct MCV MCH MCHC RDW Plt Count MPV Immature Gran % Neutrophils % Lymphocytes % Monocytes % Eosinophils % Basophils % Nucleated RBC % Absolute Neutrophils Absolute Lymphocytes Absolute Monocytes Absolute Eosinophils Absolute Basophils RBC Morphology VBG Lactate 1.2 Sodium Potassium Chloride Carbon Dioxide Anion Gap BUN Creatinine Estimated GFR/1.73 m2 Glucose Calcium Total Bilirubin AST ALT Alkaline Phosphatase Troponin I < 0.05 Total Protein Albumin Urine Color Urine Clarity Urine pH Ur Specific [place] Urine Protein Urine Ketones Urine Blood Urine Nitrite Urine Bilirubin Urine Urobilinogen Ur Leukocyte Esterase Urine RBC Urine WBC Ur Epithelial Cells Urine Crystals Urine Bacteria Urine Casts Urine Mucus Urine Other Ur Culture Indicated? Urine Glucose SARS-CoV-2 (PCR) Pending Nasopharyn COVID-19 PCR Pending Ref Test Perform Site Pending 08/23/20 08/23/20 08/23/20 10:30 10:30 10:25 WBC 26.05 H* RBC 4.37 Hgb 13.3 Hct 40.6 MCV 92.9 MCH 30.4 MCHC 32.8 RDW 12.9 Plt Count 354 MPV 11.5 H Immature Gran % 0.7 Neutrophils % 89.5 Lymphocytes % 4.3 Monocytes % 4.3 Eosinophils % 0.9 Basophils % 0.3 Nucleated RBC % 0 Absolute Neutrophils 23.31 H Absolute Lymphocytes 1.12 L Absolute Monocytes 1.12 H Absolute Eosinophils 0.23 Absolute Basophils 0.08 RBC Morphology Normal VBG Lactate Sodium 136 Potassium 3.7 Chloride 100 Carbon Dioxide 23.9 Anion Gap 12.1 H BUN 8 Creatinine 0.84 Estimated GFR/1.73 m2 >= 60.00 Glucose 120 H Calcium 8.9 Total Bilirubin 0.7 AST 14 L ALT 22 Alkaline Phosphatase 50 Troponin I Total Protein 7.6 Albumin 3.9 Urine Color Yellow Urine Clarity Clear Urine pH 7.5 Ur Specific [place] 1.015 Urine Protein Negative Urine Ketones Negative Urine Blood Small H Urine Nitrite Negative Urine Bilirubin Negative Urine Urobilinogen 0.2 Ur Leukocyte Esterase Negative Urine RBC 5-10 H Urine WBC 3-5 Ur Epithelial Cells Moderate Urine Crystals Negative Urine Bacteria Rare Urine Casts Negative Urine Mucus Negative Urine Other Few transitional Ur Culture Indicated? No/sq. contamination Urine Glucose Negative SARS-CoV-2 (PCR) Nasopharyn COVID-19 PCR Ref Test Perform Site 08/23/20 10:25 Urine - Clean Catch Urine Culture - Pending 08/23/20 15:31 Blood Blood Culture - Pending 08/23/20 15:22 Blood Blood Culture - Pending Preliminary micro results at discharge 08/23/20 10:25 Urine Culture - Pending Urine - Clean Catch 08/23/20 15:31 Blood Culture - Pending Blood 08/23/20 15:22 Blood Culture - Pending Blood [facility] Medical History Anemia Anxiety (03/23/17) Chronic constipation (04/09/14) seen by Yogesh Yeh who recommended GI at [facility] [place] Constipation, chronic seen by Yogesh Murrell who recommended GI consult. Cystitis, subacute 11/22/2019 empiric treatment with Pyridium and cephalexin x3 days Elevated hemoglobin A1c 2012 HbgA1c 6.2. 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 Pt treated for UTI 02/2014. Migraine headache with aura Neurological symptoms Pt having MRI of brain for sx c/w MS. Panic attacks (03/23/17) Pelvic pain in female R>L side. Longstanding pt assoc with ovulation. Unable to evangelina OCPs secondary to GILES and GI S/E. Uterine fibroid 08/2014 fundal fibroid [id number] 12/2014 fundal fibroid [id number]. 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 effective without side effects. Surgical History nasal surgery Tooth extraction Family History Mother Neoplasm Lung, dx:2016-Smoker Brother No problems noted. Father , Heart Attack Heart disease Other Ovarian cancer Social History Smoking/Tobacco Use Status: Never Smoking risk assessment performed?: Yes Alcohol Intake: current Drug use: Never Household members: spouse, children and other Details: Amandeep, Romel, autistic with violent behavior, [id number], roselia-23yo Number of Children: 3 current occupation: [employer] Sexually active: Yes (Uses 's vasectomy for contraception) Do you feel safe at home: Yes Do you feel safe in your relationship?: Yes Female Reproductive History Menstrual control method: permanent sterilization and other History History 3 Para Hx # Term Pregnancies Multiple births Hx # Pregnancies 3 Ectopic pregnancies AB induced Hx Number of Living Children 3 AB spontaneous
--- NOTE | 2020-08-24 14:17 | CMDISCH_ITS ---
- If Service Date Differs Date of service: 08/24/20 Time of Service: 14:17 LACE Index Scoring Tool - Questions: Length of Stay (in days): 1 (Admission for less than 24 hrs, observation.) Acuity (Admit via E.D.?): Yes E.D. Visits: 3 - Answers: Total Score: 7 Risk of Readmission: Low Risk Care Management Discharge Reason for Hospitalization: Dysuria, SOB, leukocytosis Discharge Plan: Emmanuelle is currently on precautions d/t Covid 19, so CM was unable to visit with her. CM called and spoke to Emmanuelle, who reported that she is being discharged very soon. Per report, her symptoms may have been caused by an allergic reaction to a medication she recently started. She is being dis charged after less than 24 hrs of admission. She stated that she feels much better today, and feels ready for discharge. Emmanuelle does not have advance directives on file, and asked for a blank form, which BAKARI supplied. She will retun home with no additional services at this time. Her will drive her home via private vehicle. She will follow up with her PCP and discharge plan of care. CM will continue to follow. Patient/Family Education Needs: Review discharge instructions regarding activity levels and medications, discussion of self care needs including ask me three.
[2020-08-25 02:30] LABS: COVID-19 RT-PCR UVMMC Result Negative (Negative)
== END 2020-08-24 11:55 | disposition home or self-care (01) ==
LOC: ER 16:59 → MS 20:40
PROVIDERS: Admitting Provider General Practice; Emergency Provider Student in an Organized Health Care Education/Training Program; PCP Nurse Practitioner; Visit Provider General Practice
DX: R30.0 Dysuria (principal); R06.02 Shortness of breath; R31.29 Other microscopic hematuria; D64.9 Anemia, unspecified; K59.09 Other constipation; M79.7 Fibromyalgia; F41.0 Panic disorder [episodic paroxysmal anxiety]; R00.0 Tachycardia, unspecified
CPT/HCPCS: 36410; 36415; 71275; 80053; 85027; 87040; 93005; 96360; 96361; 99222; 99239; 99285; U0003; 74176; 81003; 81015; 83605; 84484; 85025; 87086; 93010; 99217; 99219; G0378; J3490

== ENCOUNTER 2020-10-10 11:19 | Outpatient (CLI) | payer OTHER, SELFPAY ==
--- NOTE | 2020-10-10 11:30 | RT.EKG_ITS ---
APPROVED REPORT Exam: Resting ECG Patient Location: O HR:88 bpm ECG Measurements Heart Rate 88 AXIS PA 137 P 62 QRSd 88 QRS -6 QT 385 T 36 QTc 466 Conclusion Sinus rhythm...normal P axis, V-rate 60- 99 Low voltage, precordial leads...precordial leads <1.0mV Nonspecific T abnormalities, anterior leads...T <-0.10mV, V2-V4
== END 2020-10-10 11:20 | disposition home or self-care (01) ==
LOC: RT 11:24
PROVIDERS: PCP Nurse Practitioner; Visit Provider Obstetrics & Gynecology Gynecology
DX: R00.8 Other abnormalities of heart beat (principal)
CPT/HCPCS: 93005; 93010

== ENCOUNTER 2020-11-19 03:47 | Outpatient (CLI) | payer OTHER, SELFPAY ==
[2020-11-19 17:34] LABS: ESR 6 mm//hr (0-20)
[2020-11-21 15:01] LABS: SS-A Antibody 0.9 Units (<20.0)
[2020-11-21 15:05] LABS: SS-B (La) Ab, IgG 6.8 Units (<20.0)
[2020-11-22 12:22] LABS: c-ANCA Negative (Negative); p-ANCA Negative (Negative)
== END 2020-11-19 03:48 | disposition home or self-care (01) ==
LOC: LBO 03:47
PROVIDERS: PCP Nurse Practitioner; Visit Provider Otolaryngology Otolaryngology/Facial Plastic Surgery
DX: L50.8 Other urticaria (principal); K14.6 Glossodynia; R22.0 Localized swelling, mass and lump, head; G93.40 Encephalopathy, unspecified; R43.2 Parageusia
CPT/HCPCS: 36415; 85652; 86235; 86255

== ENCOUNTER 2021-01-14 09:17 | Outpatient (CLI) | payer OTHER, SELFPAY ==
--- NOTE | 2021-01-14 | DI.RAD_ITS ---
Exam(s) XR CERVICAL SPINE COMP 4-5V EXAM: XR CERVICAL SPINE COMP 4-5V CLINICAL HISTORY: CHRONIC NECK PAIN, M54.2. TECHNIQUE: 2D digital imaging was performed. COMPARISON: No exams were available for comparison FINDINGS: BONES: No fracture or destructive lesion. Vertebral bodies are unremarkable. DISKS: C2-3 and C3-4 disc spaces are well maintained. There is moderate to severe narrowing of the C 4- 5 disc space. There are circumferentially projecting osteophytes. The C5-6 and C6-7 as well as C 7-T1 disc spaces are well maintained. There are degenerative changes of the facet joints throughout. There is significant neural foraminal encroachment on the left at C 4 5. There is mild neural fora cristhian encroachment on the right at C4-5 and C5-6. ALIGNMENT: There is straightening of the normal cervical lordosis secondary to the degenerative posey es. The odontoid and atlantoaxial articulations are normal. SOFT TISSUE: Normal. The lung apices are clear. IMPRESSION: Degenerative changes, greatest at C4-5 causing neural foraminal narrowing, left greater than right. DATA REPOSITORY: RADIATION DOSE DELIVERED:
--- NOTE | 2021-01-14 | DI.RAD_ITS ---
Exam(s) XR SACROILIAC JOINTS EXAM: XR SACROILIAC JOINTS CLINICAL HISTORY: LPB, H/O PSORIASIS, EVALUTE FOR POSSIBLE SACROILIITIS, M54.5, G89.29. TECHNIQUE: 2D digital imaging was performed. COMPARISON: No exams were available for comparison FINDINGS: BONES: No acute fracture is present. No bony destructive lesion is seen. JOINTS: No dislocation present. Hip joint spaces are well maintained. The SI joints are unremarkab le. There is no evidence of sacroiliitis. There are mild facet joint degenerative changes in the lo wer lumbar spine. Visualized disc spaces are well maintained. SOFT TISSUE: Normal. IMPRESSION: Mild degenerative changes of the facet joints of the lower lumbar spine. Unremarkable SI joints. DATA REPOSITORY: RADIATION DOSE DELIVERED:
== END 2021-01-14 09:37 ==
PROVIDERS: PCP Nurse Practitioner; Visit Provider Internal Medicine
DX: M54.5 Low back pain (principal); G89.29 Other chronic pain; M47.816 Spondylosis without myelopathy or radiculopathy, lumbar region; M54.2 Cervicalgia; M50.321 Other cervical disc degeneration at C4-C5 level
CPT/HCPCS: 72050; 72202

== ENCOUNTER 2021-03-18 02:55 | Outpatient (CLI) | payer OTHER, SELFPAY ==
--- NOTE | 2021-03-18 11:23 | DI.MAMMO_ITS ---
Exam(s) MAMMO SCREENING EXAM: MAMMO SCREENING CLINICAL HISTORY: screening,Z12.39 TECHNIQUE: Bilateral full field digital CC and MLO mammographic images were obtained with 3D tomosyn thesis and utilizing computer aided detection (CAD). COMPARISON: Available for comparison. FINDINGS: Masses/Architectural Distortion: None seen. Microcalcifications: No suspicious pleomorphic-type are seen. Skin Thickening/Nipple Retraction: None. IMPRESSION: 1. No significant interval change with no specific features of malignancy noted. 2. Unless there is more urgent need, screening mammography is recommended, as per [place] [employer] guidelines. BI-RADS Category 1 - Negative Breast Density - Category C - Heterogeneously dense Breast density category C or D implies that the patient has dense breast tissue. Dense breast tissue is very common and is not abnormal but dense breast tissue can make it harder to find cancer on a ma mmogram. Also, dense breast tissue may increase their breast cancer risk. This information about the result of the mammogram report was provided to the patient to raise their awareness. Use this report when you speak with the patient about their risks for breast cancer, which includes their family hist ory. At that time, you may recommend for more screening tests (Ultrasound or MRI) as they might be us eful based on their risk. A negative radiographic report should not delay biopsy if a dominant or clinically suspicious mass is present. Up to ten percent of cancers are not identified on mammography. A negative report may reinforce clinical impression. Adenosis and dense breasts may obscure an underlying neoplasm. False positive reports average 6 to 10%. Patient will receive a letter notifying them of these results.
== END 2021-03-18 03:15 ==
PROVIDERS: PCP Nurse Practitioner; Visit Provider Obstetrics & Gynecology Gynecology
DX: Z13.31 Encounter for screening for depression (principal); R92.8 Other abnormal and inconclusive findings on diagnostic imaging of breast
CPT/HCPCS: 77063; 77067

== ENCOUNTER 2021-04-01 18:25 | Outpatient (REF) | payer OTHER, SELFPAY ==
[2021-04-01 20:53] LABS: Abs Immature Grans 0.02 10^3/uL (0.0-0.06); Absolute Basophil Count 0.08 10^3/uL (0.0-0.2); Absolute Eosinophil Count 0.19 10^3/uL (0.0-0.7); Absolute Lymphocyte Count 3.43 10^3/uL (1.2-3.4); Absolute Monocyte Count 0.59 10^3/uL (0.1-0.8); Absolute Neutrophil Count 4.81 10^3/uL (1.2-6.7); Basophils % 0.9; Eosinophils % 2.1; HCT 41.6 % (36.0-46.0); HGB 13.3 g/dL (11.2-15.7); Immature Grans % 0.2; Lymphocytes % 37.6; MCH 30.2 pg (27.0-33.0); MCV 94.3 fL (80-95); Monocytes % 6.5; Neutrophils % 52.7; Nucleated RBC 0 %; Platelet Count 375 10^3/uL (130-400); RBC 4.41 10^6/uL (3.93-5.22); RDW 12.7 % (11.7-14.6); RDW-SD 44.1 fL; WBC 9.12 10^3/uL (4.4-10.8)
[2021-04-01 21:04] LABS: ESR 13 mm/hr (0-20)
[2021-04-01 21:32] LABS: ALT 17 U/L (14-59); AST 13 U/L (15-37); Albumin 4.5 g/dL (3.4-5.0); Alkaline Phosphatase 60 U/L (46-116); Anion Gap 10.4 mmol/L (3-11); BUN 13 mg/dL (7-18); Bilirubin, Total 0.3 mg/dL (0.2-1.0); CO2 27.6 mmol/L (21.0-32.0); CREATININE 0.8 mg/dL (0.55-1.02); Calcium 9.3 mg/dL (8.5-10.1); Calculated LDL 179 mg/dL (<100); Chloride 104 mmol/L (98-107); Cholesterol 264 mg/dL (<200); Glucose 97 mg/dL (74-106); HDL Cholesterol 61 mg/dL (40-60); Potassium 4.1 mmol/L (3.5-5.1); Sodium 142 mmol/L (136-145); TSH (W/Ref FT4) 2.66 uIU/mL (0.36-3.74); Total Protein 7.9 g/dL (6.4-8.2); Triglyceride 124 mg/dL (<150); Vitamin B12 630 pg/mL (193-986)
[2021-04-01 21:44] LABS: C-Reactive Protein 0.36 mg/dL (0.0-0.3)
[2021-04-03 01:30] LABS: Vitamin D 25 Total 40.2 ng/mL (30-100)
[2021-04-03 11:42] LABS: Lyme Ab w Rflx to Lyme Confirm Negative (Negative)
== END 2021-04-01 18:26 | disposition home or self-care (01) ==
LOC: LBN 18:25
PROVIDERS: PCP Nurse Practitioner; Visit Provider Nurse Practitioner Family
DX: R94.6 Abnormal results of thyroid function studies (principal); R00.2 Palpitations; G62.9 Polyneuropathy, unspecified; Z86.2 Personal history of diseases of the blood and blood-forming organs and certain disorders involving the immune mechanism; Z68.30 Body mass index [BMI] 30.0-30.9, adult
CPT/HCPCS: 80053; 80061; 82306; 85652; 82607; 84443; 85025; 86140; 86618

== ENCOUNTER 2022-01-13 11:57 | Outpatient (REF) | payer OTHER, SELFPAY ==
--- NOTE | 2022-01-13 11:20 | PAPFT_PTH ---
PATIENT: Emmanuelle Garcia LOC: [facility] U#:[id number] AGE/SX: 46/F ROOM: RE01/13/[address]: Nayla Jj : 1975 BED: DIS: 01/13/2022 SPEC #: [id number] RECD: 01/13/22 12:58 STATUS: GIACOMO REQ #: [id number] CELIO: 01/13/22 11:[address]: Nayla Jj DEPT: [facility] Cytology RECD BY: Rosalee Meyers ENTERED: 01/13/22 12:59 SP TYPE: PAPFT OTHR DR: Marie Rosales Tissues: 1 - CX/ENDOCX FOR PAP SMEARS Procedures: PAP THIN PREP/UVM Screening HPV DNA PROBE Comments: [id number]
== END 2022-01-13 11:58 | disposition home or self-care (01) ==
LOC: LBN 11:57
PROVIDERS: PCP Nurse Practitioner; Visit Provider Obstetrics & Gynecology Gynecology
DX: Z12.4 Encounter for screening for malignant neoplasm of cervix (principal); Z11.51 Encounter for screening for human papillomavirus (HPV)
CPT/HCPCS: 88142; 87624

== ENCOUNTER → 2022-02-16 02:28 | Outpatient (CLI) | payer OTHER, SELFPAY ==
--- NOTE | 2022-02-16 08:00 | DI.MAMMO_ITS ---
Exam(s) MAMMO DIAGNOSTIC BI EXAM: MAMMO DIAGNOSTIC BI CLINICAL HISTORY: L upper inner breast pain,lt sided island of breast tissue,r07.89. TECHNIQUE: Both CC and MLO views of both breasts were performed also performed additional unilateral left MLO spot mammographic images were obtained with 3D tomosynthesis technique and utilizing comput er aided detection (CAD). COMPARISON: Prior mammograms were reviewed, the most recent being February 2021. FINDINGS: Fibroglandular tissue pattern is again noted be moderately dense, this somewhat decreasing the sensit ivity mammogram for finding hidden underlying lesions. No new significant radiograph findings in the right breast. In the left breast there are nodular densities, 1 located 4 cm in from the nipple in the other locate d 6 cm in from the nipple. The former measures approximately 7 x 6 millimeters. Other measures appr oximately 8 x 5 millimeters. We performed additional spot compression view. This does not dissipate these findings which are in t he area of this patient's apparent pain. There are no malignant-appearing microcalcification groups in this region or elsewhere in either breast. No new architectural distortion or skin thickening-traction. IMPRESSION: 1. Left breast nodules. These are in the area of this patient's pain. Ultrasound recommended. No radiographic evidence of malignancy in the opposite-right breast. Appropriate follow-up is complete left breast ultrasound.. The patient was informed of the findings and follow-up recommendations prior to leaving the [facility] t today. BI-RADS Category 0 - Assessment Incomplete: Need additional imaging evaluation Breast Density - Category C - Heterogeneously dense Breast density Category C or D implies that the patient has dense breast tissue. Dense breast tissue can make it harder to find cancer on a mammogram. Dense breast tissue is also associated with an incr eased risk of breast cancer. This information about the result of the mammogram report was provided to the patient to raise their awareness. Use this report when you speak with the patient about their risks for breast cancer, which includes their family history. At that time, you may recommend additional screening tests (Ultrasoun d or MRI) as these tests may add significant information. A negative radiographic report should not delay biopsy if a dominant or clinically suspicious mass is present. Up to ten percent of cancers are not identified on mammography. A negative report may reinforce clinical impression. Adenosis and dense breasts may obscure an underlying neoplasm. False positive reports average 6 to 10%. Patient will receive a letter notifying them of these results.
== END ==
PROVIDERS: PCP Nurse Practitioner; Visit Provider Obstetrics & Gynecology Gynecology
DX: N63.20 Unspecified lump in the left breast, unspecified quadrant (principal); R07.89 Other chest pain
CPT/HCPCS: 77062; 77066; G0279

== ENCOUNTER → 2022-06-12 00:42 | Outpatient (CLI) | payer OTHER, SELFPAY ==
--- NOTE | 2022-06-12 08:00 | DI.MAMMO_ITS ---
Exam(s) US BREAST RT COMPLETE MG MAMMO DIAGNOSTIC BI EXAM: MG MAMMO DIAGNOSTIC BI AND COMPLETE RIGHT BREAST ULTRASOUND CLINICAL HISTORY: History of microcysts,f/u findings on mammo, r92.8,m79.89. TECHNIQUE: BILATERAL CC AND MLO mammographic images were obtained with 3D tomosynthesis technique an d utilizing computer aided detection (CAD). COMPLETE RIGHT BREAST ULTRASOUND was also performed including all 4 quadrants as well as the right ax illa. COMPARISON: Prior mammograms were reviewed, the most recent being January 2022. Prior ultrasound also reviewed. FINDINGS: DIAGNOSTIC BILATERAL MAMMOGRAM: The fibroglandular tissue pattern is again noted be moderately dense, this somewhat decreasing the se nsitivity mammogram for finding hidden underlying lesions. There are no new spiculated masses nor malignant-appearing microcalcification either. Asymmetric den sity in the left breast unchanged. No new architectural distortion or skin thickening-retraction. COMPLETE RIGHT BREAST ULTRASOUND: No evidence of solid or significant cystic lesions in all 4 quadrants of the right breast. Right axi lla is negative for significant adenopathy. At this point we took another look at the 6 o'clock position finding in the opposite-left breast desc ribed on the ultrasound examination of 02/20/2022 and more recently on 05/25/2022. This wider than t aller slightly lobulated 6 x 4 millimeter nodule is solid, exhibiting neutral through transmission, a nd is probably a fibroadenoma. IMPRESSION: 1. No mammographic evidence of malignancy. 2. Negative complete right breast ultrasound. 3. 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 This measures 6 x 4 millimeters, unchang ed from 02/20/2022. This can be followed with repeat ultrasound in 6 months. The patient informs me that she may want it to be surgically excised, given which she feels is a very strong family history of malignancies. She does not want to undergo ultrasound-guided biopsy as she feels this will spr ead the tumor???, as apparently she feels occurred in her mother's case (ovarian malignancy). I info rmed her that she should discuss the options with her physician. I would feel comfortable in followi ng this with ultrasound repeat in 6 months or ultrasound-guided core biopsy. If she insists that exc ision or biopsy performed and this would not be unreasonable. . The patient was informed of the findings and follow-up recommendations prior to leaving the [facility] t today. BI-RADS Category 4 - Suspicious Abnormality: Biopsy should be considered Breast Density - Category C - Heterogeneously dense Breast density Category C or D implies that the patient has dense breast tissue. Dense breast tissue can make it harder to find cancer on a mammogram. Dense breast tissue is also associated with an incr eased risk of breast cancer. This information about the result of the mammogram report was provided to the patient to raise their awareness. Use this report when you speak with the patient about their risks for breast cancer, which includes their family history. At that time, you may recommend additional screening tests (Ultrasoun d or MRI) as these tests may add significant information. A negative radiographic report should not delay biopsy if a dominant or clinically suspicious mass is present. Up to ten percent of cancers are not identified on mammography. A negative report may reinforce clinical impression. Adenosis and dense breasts may obscure an underlying neoplasm. False positive reports average 6 to 10%. Patient will receive a letter notifying them of these results.
== END ==
PROVIDERS: PCP Nurse Practitioner; Visit Provider Obstetrics & Gynecology Gynecology
DX: R92.8 Other abnormal and inconclusive findings on diagnostic imaging of breast (principal); R07.89 Other chest pain
CPT/HCPCS: 76642; 77062; 77066; G0279

== ENCOUNTER 2022-06-21 17:14 | Emergency (ER) | payer OTHER, SELFPAY ==
[2022-06-21] VITALS (36 sets, daily range): BP systolic 121–157; BP diastolic 72–94; PULSE 80–112; RESP 5–36; TEMP 36.9; O2SAT 97–100
--- NOTE | 2022-06-21 17:15 | RT.EKG_ITS ---
APPROVED REPORT Exam: Resting ECG Reason for Exam: palpitations Patient Location: E HR:105 bpm ECG Measurements Heart Rate 105 AXIS TX 174 P 64 QRSd 88 QRS -7 QT 362 T 30 QTc 479 Conclusion Sinus tachycardia...rate> 99 Low voltage, precordial leads...precordial leads <1.0mV Nonspecific T abnormalities, anterior leads...T <-0.10mV, V2-V4 sinus tachycardia, normal axis, nomal intervals, t wave inversions anterior leads
--- NOTE | 2022-06-21 17:36 | ED.GENADUL_ITS ---
Discharge Plan Disposition Patient Disposition: HOME Condition: Stable Discharge Details Clinical Impression: Palpitations, Elevated TSH Primary Care Provider: Marie Rosales ED Provider: Jill Euceda Home Meds and New Rx's Prescriptions: No Action clobetasol 0.05 % ointment 1 applic TP .COMPLEX Qty: 0 1RF Rx Instructions: 1 applic topical twice weekly; apply to vulva twice a week as needed. lorazepam [Ativan] 0.5 mg tablet 0.5 mg PO TID PRN (Reason: anxiety) Qty: 3 0RF Discharge Instructions Instructions: Heart Palpitations (ED) Additional Instructions: Cardiac workup including Chest CT is negative at this time. No pneumonia, blood clot in lungs or abnormality. Please follow-up with your primary care provider in the next few days regarding elevated TSH level. This may be an indication of hypothyroidism. This can cause palpitations and fast heart rate. This also could be caused from some anxiety by her upcoming procedure. Follow up with primary care provider in 3-5 days. Return to ED sooner if any worsening or concerns. Increase oral fluids. Referrals: Marie Rosales [Primary Care Provider] - 3 days Medical Decision Making 47-year-old female presents to the ER with chief complaint of chest vibration which began for 5 days ago. She reports midsternal fluttering type symptoms sensation in her chest. She also reports some possible underlying anxiety about meeting with the surgeon for a left breast adenoma. She denies any other associated symptoms EKG was reviewed by Dr. Jammie Rios ER attending, please see his official report. Will be CT available for review. No significant changes. Work-up ordered including troponin, D-dimer TSH and a liter of fluid. Differential diagnosis includes not limited to coronary artery disease, PE, anxiety, arrhythmia, thyroid issue CBC shows no leukocytosis, D-dimer slightly elevated at 611, potassium 3.1 BUN 21. Creatinine 8, glucose 113 TSH is elevated at 4.59, free T4 is pending at this time. Patient does have a history of hypothyroidism however she is not taking any thyroid medications. 40 mEq p.o. potassium p.o. ordered and CT chest rule out PE due to elevated D- dimer and palpitations. My suspicion for PE is low however with the elevated D-dimer tachycardia and symptoms I will rule this out. 191: Informed by staff that patient has refused the chest CT because she feels dehydrated and needs more IV fluids. I will discuss with her that we cannot rule out a pulmonary embolism without chest CT Patient was able to go ahead with the CT. CT results are negative for PE. Discussed follow-up care and strict return instructions and home care with patient who verbalized understanding. Patient discharged in hemodynamically stable condition. This text was generated using [email or web address] system, please disregard any oddities of phrase or misspellings. Medical Records Medical records reviewed: Yes I reviewed the patient's medical records. Imaging Data Radiologic Study: Imaging: CT Scan Radiologist's impression: FINDINGS: Pulmonary arteries: No pulmonary embolism identified. Aorta: No thoracic aortic aneurysm or dissection. Thyroid: Thyroid gland partially excluded from view but grossly unremarkable through its visualized portion. Lungs: Mild dependent atelectasis. No pulmonary consolidation. Pleural spaces: No pleural effusion or pneumothorax. Heart: Normal-sized heart. Trace pericardial fluid. Lymph nodes: No pathologically enlarged mediastinal or hilar lymph nodes. Stomach and bowel: At least 3 duodenal diverticula partially demonstrated. Bones/joints: Lower ribs partially excluded from view and incompletely evaluated. Otherwise, no acute fracture seen among the bones of the chest. Spinal degenerative change with small Schmorl's nodes and small anterior osteophytes at several levels. Mild thoracic kyphosis. Soft tissues: No gross soft tissue mass or fluid collection seen in the chest wall. IMPRESSION: 1. No pulmonary embolism identified. No thoracic aortic aneurysm or dissection. 2. Normal-sized heart. Trace pericardial fluid, nonspecific. 3. No pulmonary consolidation, pleural effusion, or pneumothorax. Thank you for allowing us to participate in the care of your patient. Dictated and Authenticated by: Deni Roach MD Lab Data Lab results reviewed: Yes I reviewed the patient's lab results. Lab results narrative: Laboratory Tests Range/Units 06/21/22 06/21/22 06/21/22 17:30 17:30 17:30 WBC (4.4-10.8) 10^3/uL 9.87 RBC (3.93-5.22) 10^6/uL 4.32 Hgb (11.2-15.7) g/dL 13.3 Hct (36.0-46.0) % 40.7 MCV (80-95) fL 94 MCH (27.0-33.0) pg 30.8 MCHC (32.0-36.0) % 32.7 RDW (11.7-14.6) % 13.2 Plt Count (130-400) 10^3/uL 357 MPV (8.0-11.0) fL 11.6 H Immature Gran % 0.4 Neutrophils % 53.8 Lymphocytes % 36.7 Monocytes % 6.6 Eosinophils % 1.7 Basophils % 0.8 Nucleated RBC % (0.0-0.3) % 0.0 Absolute Neutrophils (1.2-6.7) 10^3/uL 5.31 Absolute Lymphocytes (1.2-3.4) 10^3/uL 3.62 H Absolute Monocytes (0.1-0.8) 10^3/uL 0.65 Absolute Eosinophils (0.0-0.7) 10^3/uL 0.17 Absolute Basophils (0.0-0.2) 10^3/uL 0.08 D-Dimer (<500) ng/mlFEU 611 H Sodium (136-145) mmol/L 139 Potassium (3.5-5.1) mmol/L 3.1 L Chloride (98-107) mmol/L 102 Carbon Dioxide (21.0-32.0) mmol/L 28.5 Anion Gap (3-11) mmol/L 8.5 BUN (7-18) mg/dL 21 H Creatinine (0.55-1.02) mg/dL 0.8 Est GFR (CKD-EPI 2020) (mL/min/1.73m2) 90.27 Glucose (74-106) mg/dL 113 H Calcium (8.5-10.1) mg/dL 9.5 Magnesium (1.8-2.4) mg/dL 2.1 Total Bilirubin (0.2-1.0) mg/dL 0.2 AST (15-37) U/L 14 L ALT (14-59) U/L 16 Alkaline Phosphatase (46-116) U/L 58 Troponin I (<or=60) ng/L < 50 Total Protein (6.4-8.2) g/dL 7.9 Albumin (3.4-5.0) g/dL 4.3 TSH (0.36-3.74) uIU/mL 4.59 H Free T4 (0.76-1.46) ng/dL 0.82 HPI General Mode of arrival: ambulatory . Date/Time Provider Initiated Documentation: 06/21/22 17:16 . Limitations to Documentation: no limitations . Information obtained by: patient, RN notes reviewed and old records reviewed . HPI Narrative: 47-year-old female presents to the ER with chief complaint of chest vibration which began for 5 days ago. She reports midsternal fluttering type symptoms sensation in her chest. She also reports some possible underlying anxiety about meeting with the surgeon for a left breast adenoma. She denies any other associated symptoms no cough, denies any abdominal pain nausea vomiting no problems urinating. Denies any fever or chills. She is vaccinated for COVID. Past medical history includes migraines, cystitis, anxiety, polycystic ovarian disorder, fibromyalgia, anemia. She is currently on her menses. Related Data Home Medications Medication Instructions Recorded Confirmed clobetasol 0.05 % topical ointment 1 applic topical .COMPLEX #0 grams 08/11/19 06/21/22 lorazepam 0.5 mg tablet (Ativan) 0.5 mg PO TID PRN anxiety #3 tabs 11/14/19 06/21/22 Previous Rx's Medication Instructions Recorded clobetasol 0.05 % topical ointment 1 applic topical .COMPLEX #0 grams 08/11/19 lorazepam 0.5 mg tablet (Ativan) 0.5 mg PO TID PRN anxiety #3 tabs 11/14/19 Allergies Allergy/AdvReac Type Severity Reaction Status Date / Time morphine Allergy Severe Anaphylaxsi Verified 06/21/22 17:37 s nitrofurantoin Allergy Severe Anaphylaxsi Verified 06/21/22 17:37 [From Macrobid] s sulfamethoxazole Allergy Unknown Verified 06/21/22 17:37 [From Bactrim] trimethoprim [From Bactrim] Allergy Unknown Verified 06/21/22 17:37 clobetasol AdvReac Mild ? S/E from Verified 06/21/22 17:37 cream. Pt given clobetasol oinment w/o problems. General Stated Complaint: Palpitatns PAMELA: 2 Review of Systems All systems reviewed & are unremarkable except as noted in HPI and below Cardiovascular Cardiovascular: Denies chest pain, Denies syncope and Reports rapid heart rate Respiratory Respiratory: Denies cough Gastrointestinal Gastrointestinal: Denies abdominal pain, Denies diarrhea, Denies nausea and Denies vomiting Neurologic Neurologic: Denies syncope PFSH All Active Problems (Updated 06/21/22 @ 20:54 by Jill Euceda NP) Palpitations (Acute) Elevated TSH (Acute) Nipple discharge (Acute) Abnormal mammogram (Acute) Mass of soft tissue of chest (Acute) Chest wall pain (Acute) bilateral of mid sternum. tender Nl mammogram. Bilateral breast u/s 05/2022. Altered heart rate (Acute) Leukocytosis (Acute) Cough (Acute) UTI (urinary tract infection) (Acute) Intractable migraine with aura with status migrainosus (Acute) COMPLEX MIGRAINE with fortification spectra, confusion, mood issu es,dysarthria Intractable menstrual migraine with status migrainosus (Acute) Acute intractable headache (Acute) Intractable migraine with aura without status migrainosus (Acute) Cystitis, subacute (Chronic) 11/22/2019 empiric treatment with Pyridium and cephalexin x3 days Pelvic pain in female (Chronic) R>L side. Longstanding pt assoc with ovulation. Unable to evangelina OCPs secondary to GILES and GI S/E. Vulvitis (Chronic) clobetasol cream replaced with clobetasol ointment. effective without side effects. Migraine headache with aura (Chronic) Uterine myoma (Acute 09/20/14) 08/2014 fundal fibroid [id number] 12/2014 [id number] fundal fibroid Strain of gastrocnemius tendon of right lower extremity (Acute 11/10/17) Pelvic pain in female (Acute 04/09/14) R>L side assoc with ovulation. pelvic u/s 04/06/14 uterine fibroid and nl adnexa. Paresthesias (Acute 04/21/16) Panic attacks (Acute 03/23/17) Microscopic hematuria (Acute 09/09/12) Noted at time of office visit for pelvic pain. No IC w/u Kyphosis (acquired) (postural) (Acute 11/10/17) Dysuria (Acute 03/20/14) Dysfunction of right eustachian tube (Acute 05/24/17) Chronic constipation (Acute 04/09/14) seen by Yogesh Murrell [address] [place] [facility] [place]xiety (Acute 03/23/17) Medical History Anemia Constipation, chronic seen by Yogesh Murrell who recommended GI consult. Elevated hemoglobin A1c 2012 HbgA1c 6.2. 04/2014 HbgA1c 5.5 Fibromyalgia Self diagnosis Irritable bowel Microscopic hematuria Noted in 2012. Pt treated for UTI 02/2014. Neurological symptoms Pt having MRI of brain for sx c/w MS. Uterine fibroid 08/2014 fundal fibroid [id number] 12/2014 fundal fibroid [id number]. Surgical History nasal surgery Tooth extraction Family History Mother Neoplasm Lung, dx:2015.[facility] Lung CA. 2021. Ovarian CA per pt report. No sequelae. Father , Heart Attack Heart disease Other Ovarian cancer Social History Smoking/Tobacco Use Status: Never Smoking risk assessment performed?: Yes Alcohol Intake: current Alcohol Intake frequency: a few times a month Alcohol type: wine Drug use: Never Household members: spouse, children and other Details: Amandeep, Romel, autistic with violent behavior, [id number], [id number] Number of Children: 3 current occupation: [employer] Sexually active: Yes (Uses 's vasectomy for contraception) Do you feel safe at home: Yes Do you feel safe in your relationship?: Yes Female Reproductive History Menstrual control method: permanent sterilization and other History History 3 Para Hx # Term Pregnancies Multiple births Hx # Pregnancies 3 Ectopic pregnancies AB induced Hx Number of Living Children 3 AB spontaneous Exam Narrative Exam Narrative: Constitutional: Alert and oriented x3. Appears stated age. Normal body habitus. Head: Normocephalic, no trauma. Eyes: Pupils PERRL, Red reflex noted, EOM's intact. Eyelids symmetrical without lesions, discharge, or swelling. ENT: Bilateral TM's WNL, External ear normal to inspection, no mastoid TTP, swelling, or erythema, Nasal turbinates WNL, no nasal discharge. Normal dentition, Posterior pharynx WNL, no exudate. Chest: Slightly tachycardic upon arrival at a rate of 107, normal S1, S2, distal pulses intact. Resp: Lungs clear to auscultation bilaterally, no wheezes, rales, or rhonchi. Abdomen: Soft, non-distended, Normoactive bowel sounds all 4 quads. Musculoskeletal: Normal gait, 5/5 strength to all four extremities. Skin: No suspicious rashes or lesions. Capillary refill less than 2 sec. Neurologic: Cranial nerves II-XII intact. Alert and oriented x 3. Motor: No deficits noted. Sensory: Intact bilaterally all 4 extremities. Reflexes: DTR's intact bilaterally.. Hematologic/Lymphatic: No ecchymosis, no lymphadenopathy. Course Vital Signs Vital signs: Vital Signs Temperature 36.9 C 06/21/22 17: Pulse 87 06/21/22 17:22 Respiratory Rate 14 06/21/22 17:22 Blood Pressure 153/94 H 06/21/22 17:22 Pulse Oximetry 100 06/21/22 17:22 Temperature 36.9 C 06/21/22 17:22 Temperature Source Skin 06/21/22 17:22 Pulse 87 06/21/22 17:22 Respiratory Rate 14 06/21/22 17:22 Blood Pressure 153/94 H 06/21/22 17:22 Pulse Oximetry 100 06/21/22 17:22 Oxygen Delivery Method Room Air 06/21/22 17:22 Oxygen Flow Rate 0 06/21/22 17:22 Pain Level 5 06/21/22 17:22
[2022-06-21 17:46] LABS: Abs Immature Grans 0.04 10^3/uL (0.0-0.06); Absolute Basophil Count 0.08 10^3/uL (0.0-0.2); Absolute Eosinophil Count 0.17 10^3/uL (0.0-0.7); Absolute Lymphocyte Count 3.62 10^3/uL (1.2-3.4); Absolute Monocyte Count 0.65 10^3/uL (0.1-0.8); Absolute Neutrophil Count 5.31 10^3/uL (1.2-6.7); Basophils % 0.8; Eosinophils % 1.7; HCT 40.7 % (36.0-46.0); HGB 13.3 g/dL (11.2-15.7); Immature Grans % 0.4; Lymphocytes % 36.7; MCH 30.8 pg (27.0-33.0); MCHC 32.7 % (32.0-36.0); MCV 94 fL (80-95); MPV 11.6 fL (8.0-11.0); Monocytes % 6.6; Neutrophils % 53.8; Platelet Count 357 10^3/uL (130-400); RBC 4.32 10^6/uL (3.93-5.22); RDW 13.2 % (11.7-14.6); RDW-SD 46.1 fL; WBC 9.87 10^3/uL (4.4-10.8)
[2022-06-21] MEDS: Normal Saline 1,000 ML 1000 ML IV ×2 (17:49→19:43)
--- NOTE | 2022-06-21 18:15 | DI.CT_ITS ---
Exam(s) CT CHEST PE CTA EXAM: CT CHEST PE CTA CLINICAL HISTORY: Elevated d-dimer palpitations. TECHNIQUE: Imaging Protocol: Axial CT angiography was performed with multi-slice acquisition and mu lti-planar reconstructions as well as axial, coronal and sagittal MIP reconstructions. CONTRAST MATERIAL: Intravenous: Omnipaque 350 Contrast volume:100 ml COMPARISON: CT CT RENAL COLIC WO from 08/23/[address] CHEST PE CTA from 08/23/2020 FINDINGS: Pulmonary Arteries: No evidence of filling defect to suggest pulmonary emboli. Tracheobronchial tree: Patent where visualized. Mediastinum and Deja: No dominant adenopathy or fluid collection. Pulmonary parenchyma: Mild dependent changes. No consolidation or dominant measurable mass. Pleura: No effusion or pneumothorax. Heart: The heart is not dilated. No coronary artery calcifications are seen. Aorta: Thoracic aorta non-dilated. No aneurysm. No dissection. Upper abdomen: 3 duodenal diverticula, partially visualized. Bones: Degenerative changes in the thoracic spine. IMPRESSION: No evidence of pulmonary embolism or other acute abnormality. RADIATION DOSE DELIVERED: Total DLP DATA REPOSITORY: All CT scans at this facility are submitted to the National Radiology Data Registry (NRDR) Dose Index Registry (DIR) with the [employer] (ACR). RADIATION OPTIMIZATION: All CT scans at this facility use at least one of these dose optimization te chniques: automated exposure control; mA and/or kV adjustment per patient size (includes targeted exa ms where dose is matched to clinical indication); or iterative reconstruction.
[2022-06-21 18:17] LABS: D-Dimer 611 ng/mlFEU (<500)
[2022-06-21 18:18] LABS: ALT 16 U/L (14-59); AST 14 U/L (15-37); Albumin 4.3 g/dL (3.4-5.0); Alkaline Phosphatase 58 U/L (46-116); Anion Gap 8.5 mmol/L (3-11); BUN 21 mg/dL (7-18); Bilirubin, Total 0.2 mg/dL (0.2-1.0); CO2 28.5 mmol/L (21.0-32.0); CREATININE 0.8 mg/dL (0.55-1.02); Calcium 9.5 mg/dL (8.5-10.1); Chloride 102 mmol/L (98-107); Estimated GFR 90.27 (mL/min/1.73m2); Glucose 113 mg/dL (74-106); Magnesium 2.1 mg/dL (1.8-2.4); Potassium 3.1 mmol/L (3.5-5.1); Sodium 139 mmol/L (136-145); TSH (W/Ref FT4) 4.59 uIU/mL (0.36-3.74); Total Protein 7.9 g/dL (6.4-8.2); Troponin I < 50 ng/L (<or=60)
[2022-06-21 18:35] LABS: FREE T4 0.82 ng/dL (0.76-1.46)
[2022-06-21] MEDS: Omnipaque 350 MG/ML 100 ML BTL IJ (18:43)
[2022-06-21] MEDS: Normal Saline - Diluent 50 ML VIAL IV (18:43)
[2022-06-21] MEDS: Normal Saline Flush 10 ML SYR IVP (19:03)
--- NOTE | 2022-06-21 19:21 | DI.VRAD_ITS ---
PROCEDURE INFORMATION: Exam: CTA Chest With Contrast Exam date and time: 06/21/2022 6:56 PM Age: 47 years old Clinical indication: Abnormal findings; Abnormal diagnostic tests; Patient HX: Elevated d-dimer palpitations; Additional info: PT states discomfort/heaviness on upper left side of chest TECHNIQUE: Imaging protocol: Computed tomographic angiography of the chest with contrast. 3D rendering (Not supervised by radiologist): MIP and/or 3D reconstructed images were created by the technologist. Radiation optimization: All CT scans at this facility use at least one of these dose optimization techniques: automated exposure control; mA and/or kV adjustment per patient size (includes targeted exams where dose is matched to clinical indication); or iterative reconstruction. Contrast material: OMNIPAQUE 350; Contrast volume: 65 ml; Contrast route: INTRAVENOUS (IV); COMPARISON: CT CHEST PE CTA 08/23/2020 11:31 AM FINDINGS: Pulmonary arteries: No pulmonary embolism identified. Aorta: No thoracic aortic aneurysm or dissection. Thyroid: Thyroid gland partially excluded from view but grossly unremarkable through its visualized portion. Lungs: Mild dependent atelectasis. No pulmonary consolidation. Pleural spaces: No pleural effusion or pneumothorax. Heart: Normal-sized heart. Trace pericardial fluid. Lymph nodes: No pathologically enlarged mediastinal or hilar lymph nodes. Stomach and bowel: At least 3 duodenal diverticula partially demonstrated. Bones/joints: Lower ribs partially excluded from view and incompletely evaluated. Otherwise, no acute fracture seen among the bones of the chest. Spinal degenerative change with small Schmorl's nodes and small anterior osteophytes at several levels. Mild thoracic kyphosis. Soft tissues: No gross soft tissue mass or fluid collection seen in the chest wall. IMPRESSION: 1. No pulmonary embolism identified. No thoracic aortic aneurysm or dissection. 2. Normal-sized heart. Trace pericardial fluid, nonspecific. 3. No pulmonary consolidation, pleural effusion, or pneumothorax. Dictated and Authenticated by: Deni Roach MD. Ordering:ZAHRA Melchor MD
[2022-06-21] MEDS: Potassium Chloride 20 MEQ TABCR 40 MEQ PO (19:43)
[2022-06-21 20:52] LABS: Troponin I < 50 ng/L (<or=60)
== END 2022-06-21 21:13 | disposition home or self-care (01) ==
PROVIDERS: Obstetrics & Gynecology Gynecology; Emergency Provider Registered Nurse Emergency; PCP Nurse Practitioner
DX: R00.2 Palpitations (principal); R94.6 Abnormal results of thyroid function studies; E03.9 Hypothyroidism, unspecified
CPT/HCPCS: 36415; 71275; 80053; 93005; 96360; 96361; 99284; 83735; 84146; 84439; 84443; 84484; 85025; 85379; 93010; J3490

== ENCOUNTER 2022-11-30 02:08 | Outpatient (CLI) | payer SELFPAY ==
[2022-11-30 10:11] LABS: Kit/Specimen SENT
== END 2022-11-30 02:09 | disposition home or self-care (01) ==
LOC: LBO 02:09
PROVIDERS: PCP Physician Assistant; Visit Provider Physician Assistant
DX: Z02.89 Encounter for other administrative examinations (principal)
CPT/HCPCS: 36415

== ENCOUNTER 2022-12-18 01:25 | Outpatient (CLI) | payer SELFPAY ==
[2022-12-18 09:37] LABS: HCT 38.8 % (36.0-46.0); HGB 12.6 g/dL (11.2-15.7); MCH 29.6 pg (27.0-33.0); MCHC 32.5 % (32.0-36.0); MCV 91 fL (80-95); MPV 11.3 fL (8.0-11.0); Platelet Count 310 10^3/uL (130-400); RBC 4.26 10^6/uL (3.93-5.22); RDW 13.2 % (11.7-14.6); RDW-SD 44.2 fL; WBC 8.47 10^3/uL (4.4-10.8)
[2022-12-18 09:55] LABS: Hemoglobin A1C 5.5 % (<5.7)
[2022-12-18 10:00] LABS: Bilirubin Negative (Negative); Blood Small (Negative); Clarity Clear (Clear); Glucose Negative (Negative); Ketones Negative (Negative); Leukocyte Esterase Trace (Negative); Nitrite Negative (Negative); Urobilinogen 0.2 mg/dL (Up to 0.2)
[2022-12-18 10:07] LABS: Bacteria Rare HPF (Negative); C & S Indicated? No/Sq. Contamination; Casts Negative LPF (Negative); Crystals Negative HPF (Negative); Epithelial Cells Moderate HPF (Negative); Mucus Negative (Negative); WBC 0-2 HPF (0-5)
[2022-12-18 10:14] LABS: ALT 19 U/L (14-59); AST 13 U/L (15-37); Albumin 3.7 g/dL (3.4-5.0); Alkaline Phosphatase 44 U/L (46-116); Anion Gap 6.3 mmol/L (3-11); BUN 13 mg/dL (7-18); Bilirubin, Total 0.4 mg/dL (0.2-1.0); C-Reactive Protein 0.17 mg/dL (0.0-0.3); CO2 25.7 mmol/L (21.0-32.0); CREATININE 0.8 mg/dL (0.55-1.02); Calcium 9.1 mg/dL (8.5-10.1); Chloride 105 mmol/L (98-107); Estimated GFR 90.27 (mL/min/1.73m2); GGT 15 U/L (5-55); Glucose 104 mg/dL (74-106); LDH 130 U/L (81-234); Magnesium 1.9 mg/dL (1.8-2.4); PHOSPHORUS 3.7 mg/dL (2.6-4.7); Potassium 3.7 mmol/L (3.5-5.1); Sodium 137 mmol/L (136-145); TSH 2.97 uIU/mL (0.36-3.74); Total Protein 6.9 g/dL (6.4-8.2); Uric Acid 5.5 mg/dL (2.6-6.0)
[2022-12-18 10:52] LABS: Vitamin D 25 Total 36.5 ng/mL (30-100)
[2022-12-18 10:54] LABS: Calculated LDL 147 mg/dL (<100); Cholesterol 237 mg/dL (<200); Ferritin 34 ng/mL (8-252); Folate 14.9 ng/mL (8.6-20.0); HDL Cholesterol 68 mg/dL (40-60); T4 7.8 ug/dL (4.7-13.3); Triglyceride 112 mg/dL (<150); Vitamin B12 487 pg/mL (193-986)
[2022-12-18 20:56] LABS: Estradiol 27 pg/mL (See Note); Progesterone 1.1 ng/mL (See Table)
[2022-12-18 21:52] LABS: Sex Hormone Binding Globulin 44.8 nmol/L (See Note)
[2022-12-18 21:54] LABS: FSH 7.5 mIU/mL (See Note)
[2022-12-18 21:57] LABS: LH 3.8 mIU/mL (See Note); Prolactin 9.4 ng/mL (See Note)
[2022-12-18 23:50] LABS: T3,Free 3.9 pg/mL (2.8-5.3)
[2022-12-20 12:08] LABS: Apolipoprotein B, S 101 mg/dL; Lipoprotein (a) 165 nmol/L (<75)
[2022-12-21 10:00] LABS: Insulin 5.4 uIU/mL (<29.0)
[2022-12-22 17:38] LABS: Dehydroepiandrosterone (DHEA) 2.4 ng/mL (<8.0)
[2022-12-23 17:04] LABS: Dihydrotestosterone, Serum 55 pg/mL (<=300)
[2022-12-25 11:10] LABS: Testosterone, Free 0.33 ng/dL (<0.13-0.95); Testosterone, Total 8.7 ng/dL (8-60)
== END 2022-12-18 01:26 | disposition home or self-care (01) ==
PROVIDERS: PCP Physician Assistant
DX: Z13.220 Encounter for screening for lipoid disorders (principal); Z12.89 Encounter for screening for malignant neoplasm of other sites; Z13.1 Encounter for screening for diabetes mellitus; Z01.89 Encounter for other specified special examinations
CPT/HCPCS: 36415; 80053; 80061; 82172; 82306; 82533; 83090; 83519; 83695; 84402; 84403; 84479; 85027; 81003; 81015; 82607; 82626; 82642; 82670; 82728; 82746; 82977; 83001; 83002; 83036; 83525; 83615; 83735; 84100; 84144; 84146; 84270; 84436; 84443; 84481; 84550; 86140

== ENCOUNTER 2023-05-18 08:46 | Outpatient (REF) | payer OTHER, SELFPAY | END 2023-05-18 08:47 | disposition home or self-care (01) | LOC: NCHCN 08:46 | PROVIDERS: PCP Physician Assistant; Visit Provider Nurse Practitioner Family | DX: R35.0 Frequency of micturition (principal) | CPT/HCPCS: 87086 ==

== ENCOUNTER → 2023-05-19 00:08 | Outpatient (CLI) | payer OTHER, SELFPAY ==
--- NOTE | 2023-05-19 07:30 | DI.MAMMO_ITS ---
Exam(s) US BREAST LT LIMITED MG MAMMO DIAGNOSTIC BI EXAM: US BREAST LT LIMITED and mg mammo diagnostic bilateral CLINICAL HISTORY: microcysts L breast,,abnl mammo,mass soft tissue chest,r92.8. TECHNIQUE: Craniocaudal and mediolateral oblique Full Field Digital Mammography views of the bilater al breast with Computer Aided Diagnosis followed by Tomosynthesis and left breast ultrasound. COMPARISON: Comparison is made with prior examinations. FINDINGS: Mammography/Tomosynthesis: Masses/Architectural Distortion: No new masses or areas of architectural distortion are seen. The as ymmetric breast tissue in the outer left breast is unchanged. Microcalcifictions: No suspicious pleomorphic-type are seen. Skin Thickening/Nipple Retraction: None. Limited left breast US: Echotexture: Normal appearance of the glandular tissue. The palpable area medial to the left breast at about the 10 o'clock position was also evaluated. The area was identified by the patient. No cys tic or solid masses are seen sonographically in this area. Shadowing: No suspicious foci. Cyst: None. Solid lesions: The solid hypoechoic nodule measuring 6 mm at the 6 o'clock position of the left breas t appears stable. It is radially oriented. Ductal dilation: None. IMPRESSION: 1. No evidence of malignancy is noted. 2. A six-month follow-up left mammogram and ultrasound is requested for re-evaluation. 3. The findings were discussed with the patient on the date of the examination. BI-RADS Category 3 - 6 month - Probably Benign Finding: Recommend follow-up imaging in 6 months Breast Density - Category C - Heterogeneously dense Breast density Category C or D implies that the patient has dense breast tissue. Dense breast tissue can make it harder to find cancer on a mammogram. Dense breast tissue is also associated with an incr eased risk of breast cancer. This information about the result of the mammogram report was provided to the patient to raise their awareness. Use this report when you speak with the patient about their risks for breast cancer, which includes their family history. At that time, you may recommend additional screening tests (Ultrasoun d or MRI) as these tests may add significant information. A negative radiographic report should not delay biopsy if a dominant or clinically suspicious mass is present. Up to ten percent of cancers are not identified on mammography. A negative report may reinforce clinical impression. Adenosis and dense breasts may obscure an underlying neoplasm. False positive reports average 6 to 10%. Patient will receive a letter notifying them of these results.
--- NOTE | 2023-05-19 07:30 | DI.US_ITS ---
Exam(s) US PELVIS TRANSVAGINAL EXAM: US PELVIS TRANSVAGINAL CLINICAL HISTORY: hx of fibroid,family h/o ovarian ca,d25.9. TECHNIQUE: Transabdominal and transvaginal pelvic ultrasound was performed using standard protocol. COMPARISON: CT CT RENAL COLIC WO from 08/23/2020 US US PELVIS TRANSVAGINAL from 03/11/[address] CHEST PE CTA from 06/21/2022 FINDINGS: UTERUS: Position: Anteverted. Size: 9.9 long by 4.9 AP by 6.5 transverse cm Endometrium: 1.6 cm. The endometrium is at the upper limits of normal. It is homogeneous without monique dence of a discrete mass. Myometrium: 3 discrete uterine fibroids are seen. The largest is in the fundus and measures 2.9 x 3. 8 x 4.2 cm. The next largest is in the posterior body and measures 2.2 x 2.8 x 2.3 cm. Cervix: Nabothian cysts are present. OVARIES: The ovaries cannot be visualized due to overlying bowel. CUL-DE-SAC: Free fluid: None. Other: None. IMPRESSION: 1. Fibroid uterus. 2. The ovaries cannot be visualized on this examination due to overlying bowel. DATA REPOSITORY:
== END ==
PROVIDERS: PCP Physician Assistant; Visit Provider Obstetrics & Gynecology Gynecology
DX: N63.25 Unspecified lump in the left breast, overlapping quadrants; D25.9 Leiomyoma of uterus, unspecified; Z80.41 Family history of malignant neoplasm of ovary; Z12.31 Encounter for screening mammogram for malignant neoplasm of breast
CPT/HCPCS: 76642; 77062; 77066; 76830; 76856; G0279

== ENCOUNTER 2023-05-22 15:30 | Outpatient (REF) | payer OTHER, SELFPAY | END 2023-05-22 15:31 | disposition home or self-care (01) | LOC: LBN 15:30 | PROVIDERS: PCP Physician Assistant; Visit Provider Nurse Practitioner Family | DX: R35.0 Frequency of micturition (principal) | CPT/HCPCS: 87086 ==

== ENCOUNTER 2023-06-29 01:17 | Emergency (ER) | payer OTHER, SELFPAY ==
[2023-06-29 01:18] VITALS: BP 163/74; PULSE 94; RESP 18; TEMP 36.6; O2SAT 99
--- NOTE | 2023-06-29 01:47 | W.ED.GENAD ---
Discharge Plan Disposition Patient Disposition: Home Condition: Good Discharge Details Clinical Impression: Dyspepsia, Abrasion of face, Fall Primary Care Provider: Rhett Robles ED Provider: Elysia Miller Home Meds and New Rx's Prescriptions: No Action methylphenidate HCl [Concerta] 18 mg tablet extended release 24hr 18 mg PO PRN lorazepam [Ativan] 0.5 mg tablet 0.5 mg PO TID PRN (Reason: anxiety) Qty: 3 0RF Discharge Instructions Additional Instructions: take vitamins and supplements with food if symptoms recur, please follow up for re-evaluation Medical Decision Making Emergent evaluation of abdominal pain and vasovagal episode. Patient did not lose consciousness, not true syncope. She is hemodynamically stable. She has a small abrasion over the right outer eye, but no significant trauma based on head CT criteria, the patient has very low risk for intracranial process or fracture and I do not feel that head CT is indicated at this time. Her abdominal pain is likely from taking vitamins on an empty stomach. She was given medications for this. Otherwise her abdominal exam is benign and I do not suspect an intra-abdominal process. Patient is feeling fine, stable for discharge home. Lab Data Lab results reviewed: Yes I reviewed the patient's lab results. Labs: accucheck 94 HPI General Date/Time Provider Initiated Documentation: 06/29/23 01:42. Limitations to Documentation: no limitations. Information obtained by: patient. HPI Narrative: 48-year-old female with past medical history of asthma presents for evaluation after abdominal pain episode at home. She states that she was woken from sleep with burning epigastric pain. She went downstairs to get water and crackers she states that the pain was severe and she fell to the ground. She did not lose consciousness. She did hit her face. She has no head or neck pain at this time. She states that shortly before bed, she took her vitamin supplements on an empty stomach and states this is the cause of her abdominal pain. She states it feels like a sunburn but on the inside. She states that she has had falls and passing out related to pain. She denies any chest pain, shortness of breath, or lightheadedness. Related Data Home Medications Medication Instructions Recorded Confirmed lorazepam 0.5 mg tablet (Ativan) 0.5 mg PO TID PRN anxiety #3 tabs 11/14/19 06/29/23 methylphenidate HCl 18 mg 18 mg PO PRN 06/24/22 06/29/23 tablet,extended release 24 hr (Concerta) Previous Rx's Medication Instructions Recorded lorazepam 0.5 mg tablet (Ativan) 0.5 mg PO TID PRN anxiety #3 tabs 11/14/19 Allergies Allergy/AdvReac Type Severity Reaction Status Date / Time morphine Allergy Severe Anaphylaxsi Verified 06/29/23 01:23 s nitrofurantoin Allergy Severe Anaphylaxsi Verified 06/29/23 01:23 [From Macrobid] s sulfamethoxazole Allergy Unknown Verified 06/29/23 01:23 [From Bactrim] trimethoprim [From Bactrim] Allergy Unknown Verified 06/29/23 01:23 clobetasol AdvReac Mild ? S/E from Verified 06/29/23 01:23 cream. Pt given clobetasol oinment w/o problems. General Stated Complaint: Fall/Non TraumaCriteria PAMELA: 3 PFSH All Active Problems Fall (Acute) Abrasion of face (Acute) Dyspepsia (Acute) Nipple discharge (Acute) Abnormal mammogram (Acute) L breast microcysts. Mass of soft tissue of chest (Acute) Chest wall pain (Acute) bilateral of mid sternum. tender Nl mammogram. Bilateral breast u/s 05/2022. Altered heart rate (Acute) Leukocytosis (Acute) Cough (Acute) UTI (urinary tract infection) (Acute) Intractable migraine with aura with status migrainosus (Acute) COMPLEX MIGRAINE with fortification spectra, confusion, mood issues,dysarthria Acute intractable headache (Acute) Cystitis, subacute (Chronic) 11/22/2019 empiric treatment with Pyridium and cephalexin x3 days Pelvic pain in female (Chronic) R>L side. Longstanding pt assoc with ovulation. Unable to evangelina OCPs secondary to GILES and GI S/E. Vulvitis (Chronic) clobetasol cream replaced with clobetasol ointment. effective without side effects. Uterine myoma (Acute 09/20/14) 08/2014 fundal fibroid [id number] 12/2014 [id number] fundal fibroid Strain of gastrocnemius tendon of right lower extremity (Acute 11/10/17) Pelvic pain in female (Acute 04/09/14) R>L side assoc with ovulation. pelvic u/s 04/06/14 uterine fibroid and nl adnexa. Paresthesias (Acute 04/21/16) Panic attacks (Acute 03/23/17) Microscopic hematuria (Acute 09/09/12) Noted at time of office visit for pelvic pain. No IC w/u Kyphosis (acquired) (postural) (Acute 11/10/17) Dysuria (Acute 03/20/14) Dysfunction of right eustachian tube (Acute 05/24/17) Chronic constipation (Acute 04/09/14) seen by Yogesh Murrell 2013 who recommended GI at [facility] Anxiety (Acute 03/23/17) Medical History Irritable bowel Anemia Fibromyalgia Self diagnosis Neurological symptoms Pt having MRI of brain for sx c/w MS. Uterine fibroid 08/2014 fundal fibroid [id number] 12/2014 fundal fibroid [id number]. Elevated hemoglobin A1c 2012 HbgA1c 6.2. 04/2014 HbgA1c 5.5 Microscopic hematuria Noted in 2012. Pt treated for UTI 02/2014. Constipation, chronic seen by Yogesh Murrell who recommended GI consult. Surgical History nasal surgery Tooth extraction Family History Mother Ovarian mass Father , Heart Attack Heart disease Mother , distant hx of ovarian mass. s/p laparotomy and removal. No further treatment required. No problems noted. 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 Sexually active: Yes (Uses 's vasectomy for contraception) Current gender identity: female Do you feel safe at home: Yes Do you feel safe in your relationship?: Yes Female Reproductive History Menstrual control method: permanent sterilization and other History History 3 Para Hx # Term Pregnancies Multiple births Hx # Pregnancies 3 Ectopic pregnancies AB induced Hx Number of Living Children 3 AB spontaneous Exam Narrative Exam Narrative: Review of Systems: All systems reviewed & are unremarkable except as noted in HPI and below: CONSTITUTIONAL: Alert and oriented Well-developed, no acute distress HEENT: Subcentimeter abrasion on the right eyebrow, no surrounding trauma bruising. No facial instability or malocclusion EYES: PERRL, no conjunctival injection EARS: no external abnormality NOSE nares patent MOUTH Moist MM NECK: Symmetric, trachea midline, No thyromegaly THROAT oropharynx clear CVS: RRR, No murmurs or gallops. Peripheral pulses 2+ and equal in all extremities Brisk capillary refill in all extremities. No peripheral edema RESP: Unlabored respiratory effort, Clear to auscultation bilaterally No wheezes rales or rhonchi GI: Soft, Nontender, Nondistended, No organomegal MSK: Extremities with full range of motion, no deformity or TTP No midline spine step-off, tenderness or deformity Ambulating normally SKIN: Warm, Dry. No rashes or lesions. NEURO: No focal neurologic deficits. 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
[2023-06-29] MEDS: Ondansetron O.D.T. 4 MG TABEF PO (01:52)
[2023-06-29] MEDS: Famotidine 20 MG TAB 40 MG PO (01:52)
[2023-06-29] MEDS: Mylanta Suspension 30 ML CUP (01:52)
== END 2023-06-29 01:58 | disposition home or self-care (01) ==
LOC: ER 02:02
PROVIDERS: Emergency Provider Emergency Medicine; PCP Physician Assistant
DX: R10.13 Epigastric pain (principal); R55 Syncope and collapse; S00.81XA Abrasion of other part of head, initial encounter; W18.39XA Other fall on same level, initial encounter; Y92.018 Other place in single-family (private) house as the place of occurrence of the external cause
CPT/HCPCS: 82962; 99283

== ENCOUNTER 2023-08-23 09:43 | Emergency (ER) | payer OTHER, SELFPAY ==
[2023-08-23 10:04] VITALS: BP 128/87; PULSE 92; RESP 18; TEMP 36.8; O2SAT 96
--- NOTE | 2023-08-23 10:15 | DI.RAD_ITS ---
Exam(s) XR CHEST 2V PA LATERAL EXAM: XR CHEST 2V PA LATERAL CLINICAL HISTORY: Chest Pain, Covid + TECHNIQUE: 2D digital imaging was performed. COMPARISON: CT CT CHEST PE CTA from 06/21/2022 FINDINGS: HEART: Normal size. Aorta: Not dilated. PULMONARY VASCULATURE: Normal. LUNGS: Clear. PLEURAL SPACE: No pleural effusion or pneumothorax. BONE:Unremarkable for age. Soft tissues: Unremarkable. IMPRESSION: No acute abnormality. DATA REPOSITORY: RADIATION DOSE DELIVERED:
--- NOTE | 2023-08-23 10:29 | ED.GENADUL_ITS ---
HPI General Stated Complaint: GenMedical Mode of arrival: ambulatory. PAMELA: 4 Date/Time Provider Initiated Documentation: 08/23/23 10:10. Limitations to Documentation: no limitations. Information obtained by: patient, RN notes reviewed and old records reviewed. HPI Narrative: 48-year-old female presents to the ER with a chief complaint left upper back pain, ear pain and swollen glands URI type symptoms and dizziness after being diagnosed with COVID approximately 10 days ago. Patient has multiple complaints. She is alert and oriented x 3, speaking in full sentences lungs are clear to auscultation bilaterally. Does have a past medical history of irritable bowel syndrome, fibromyalgia, anemia, uterine fibroids and chronic constipation. She has been taking multiple home remedies vitamins and turmeric for the COVID symptoms. Vital signs are stable upon arrival. She denies any lower extremity edema she is not tachypneic. Related Data Home Medications Medication Instructions Recorded Confirmed lorazepam 0.5 mg tablet (Ativan) 0.5 mg PO TID PRN anxiety #3 tabs 11/14/19 08/20/23 methylphenidate HCl 18 mg 18 mg PO PRN 06/24/22 08/20/23 tablet,extended release 24 hr (Concerta) Previous Rx's Medication Instructions Recorded lorazepam 0.5 mg tablet (Ativan) 0.5 mg PO TID PRN anxiety #3 tabs 11/14/19 Allergies Allergy/AdvReac Type Severity Reaction Status Date / Time morphine Allergy Severe Anaphylaxsi Verified 06/29/23 01:23 s nitrofurantoin Allergy Severe Anaphylaxsi Verified 06/29/23 01:23 [From Macrobid] s sulfamethoxazole Allergy Unknown Verified 06/29/23 01:23 [From Bactrim] trimethoprim [From Bactrim] Allergy Unknown Verified 06/29/23 01:23 clobetasol AdvReac Mild ? S/E from Verified 06/29/23 01:23 cream. Pt given clobetasol oinment w/o problems. Review of Systems All systems reviewed & are unremarkable except as noted in HPI and below Constitutional Constitutional: Reports as per HPI PFSH All Active Problems (Updated 08/23/23 @ 12:07 by Jill Euceda NP) COVID (Acute) Nipple discharge (Acute) Abnormal mammogram (Acute) L breast microcysts. Mass of soft tissue of chest (Acute) Chest wall pain (Acute) bilateral of mid sternum. tender Nl mammogram. Bilateral breast u/s 05/2022. Altered heart rate (Acute) Leukocytosis (Acute) Cough (Acute) UTI (urinary tract infection) (Acute) Intractable migraine with aura with status migrainosus (Acute) COMPLEX MIGRAINE with fortification spectra, confusion, mood issues,dysarthria Acute intractable headache (Acute) Cystitis, subacute (Chronic) 11/22/2019 empiric treatment with Pyridium and cephalexin x3 days Pelvic pain in female (Chronic) R>L side. Longstanding pt assoc with ovulation. Unable to evangelina OCPs secondary to GILES and GI S/E. Vulvitis (Chronic) clobetasol cream replaced with clobetasol ointment. effective without side effects. Uterine myoma (Acute 09/20/14) 08/2014 fundal fibroid [id number] 12/2014 [id number] fundal fibroid Strain of gastrocnemius tendon of right lower extremity (Acute 11/10/17) Pelvic pain in female (Acute 04/09/14) R>L side assoc with ovulation. pelvic u/s 04/06/14 uterine fibroid and nl adnexa. Paresthesias (Acute 04/21/16) Panic attacks (Acute 03/23/17) Microscopic hematuria (Acute 09/09/12) Noted at time of office visit for pelvic pain. No IC w/u Kyphosis (acquired) (postural) (Acute 11/10/17) Dysuria (Acute 03/20/14) Dysfunction of right eustachian tube (Acute 05/24/17) Chronic constipation (Acute 04/09/14) seen by Yogesh Murrell 2013 who recommended GI at [facility] Anxiety (Acute 03/23/17) Medical History Irritable bowel Anemia Fibromyalgia Self diagnosis Neurological symptoms Pt having MRI of brain for sx c/w MS. Uterine fibroid 08/2014 fundal fibroid [id number] 12/2014 fundal fibroid [id number]. Elevated hemoglobin A1c 2012 HbgA1c 6.2. 04/2014 HbgA1c 5.5 Microscopic hematuria Noted in 2012. Pt treated for UTI 02/2014. Constipation, chronic seen by oYgesh Murrell who recommended GI consult. Surgical History nasal surgery Tooth extraction Family History Mother Ovarian mass Father , Heart Attack Heart disease Mother , distant hx of ovarian mass. s/p laparotomy and removal. No further treatment required. No problems noted. Social History Smoking/Tobacco Use Status: Never Smoking risk assessment performed?: Yes Alcohol Intake: current Alcohol Intake frequency: a few times a month Alcohol type: wine Drug use: Never Household members: spouse, children and other Details: Amandeep, Romel, autistic with violent behavior, [id number], [id number] Number of Children: 3 current occupation: [employer] Sexually active: Yes (Uses 's vasectomy for contraception) Current gender identity: female Do you feel safe at home: Yes Do you feel safe in your relationship?: Yes Female Reproductive History Menstrual control method: permanent sterilization and other History History 3 Para Hx # Term Pregnancies Multiple births Hx # Pregnancies 3 Ectopic pregnancies AB induced Hx Number of Living Children 3 AB spontaneous Exam Narrative Exam Narrative: Constitutional: Alert and oriented x3. Appears stated age. Normal body habitus. Head: Normocephalic, no trauma. Eyes: Pupils PERRL, Red reflex noted, EOM's intact. Eyelids symmetrical without lesions, discharge, or swelling. ENT: Bilateral TM's WNL, External ear normal to inspection, no mastoid TTP, swelling, or erythema, Nasal turbinates WNL, no nasal discharge. Normal dentition, Posterior pharynx WNL, no exudate. Chest: RRR, Normal S1, S2, distal pulses intact. Resp: Lungs clear to auscultation bilaterally, no wheezes, rales, or rhonchi. Abdomen: Soft, non-distended, Normoactive bowel sounds all 4 quads. Musculoskeletal: Normal gait, 5/5 strength to all four extremities. Skin: No suspicious rashes or lesions. Capillary refill less than 2 sec. Neurologic: Cranial nerves II-XII intact. Alert and oriented x 3. Motor: No deficits noted. Sensory: Intact bilaterally all 4 extremities. Reflexes: DTR's intact bilaterally.. Hematologic/Lymphatic: No ecchymosis, no lymphadenopathy. Course Vital Signs Vital signs: Vital Signs Temperature 36.8 C 08/23/23 10:04 Pulse 92 H 08/23/23 10:04 Respiratory Rate 18 08/23/23 10:04 Blood Pressure 128/87 08/23/23 10:04 Pulse Oximetry 96 08/23/23 10:04 Temperature 36.8 C 08/23/23 10:04 Temperature Source Oral 08/23/23 10:04 Pulse 92 H 08/23/23 10:04 Respiratory Rate 18 08/23/23 10:04 Blood Pressure 128/87 08/23/23 10:04 Pulse Oximetry 96 08/23/23 10:04 Oxygen Delivery Method Room Air 08/23/23 10:04 Oxygen Flow Rate 0 08/23/23 10:04 Medical Decision Making 48-year-old female presents to the ER with a chief complaint left upper back pain, ear pain and swollen glands URI type symptoms and dizziness after being diagnosed with COVID approximately 10 days ago. Patient has multiple complaints. She is alert and oriented x 3, speaking in full sentences lungs are clear to auscultation bilaterally. Does have a past medical history of irrita ble bowel syndrome, fibromyalgia, anemia, uterine fibroids and chronic constipation. She has been taking multiple home remedies vitamins and turmeric for the COVID symptoms. Vital signs are stable upon arrival. She denies any lower extremity edema she is not tachypneic. Chest x-ray ordered and POC COVID and flu swab. Discussed risks and benefits of blood clots with COVID. She reports that she has had a reaction to IV contrast dye in the past. At this time we will go ahead and start with chest x-ray. She does verbalize understanding that I cannot completely rule out PE without a CT of her chest. Chest x-ray shows no consolidation infiltrate or pulmonary edema. Rapid COVID swab is still positive for COVID. Will discuss home care with patient and continuing quarantine measures. At this time patient is not tachypneic or tachycardic has a low risk for PE. She is a nonsmoker. This text was generated using [employer] system, please disregard any oddities of phrase or misspellings. Lab Data Lab results reviewed: Yes I reviewed the patient's lab results. Discharge Plan Disposition Patient Disposition: Home Condition: Stable Discharge Details Clinical Impression: COVID Primary Care Provider: Rhett Robles ED Provider: Jill Euceda Home Meds and New Rx's Prescriptions: No Action methylphenidate HCl [Concerta] 18 mg tablet extended release 24hr 18 mg PO PRN lorazepam [Ativan] 0.5 mg tablet 0.5 mg PO TID PRN (Reason: anxiety) Qty: 3 0RF Discharge Instructions Instructions: Viral Syndrome (ED) Additional Instructions: No evidence of pneumonia on the chest x-ray. You are still testing positive for COVID. At this time I think that your risk for a blood clot in your lung is relatively low. However if you continue to have shortness of breath, worsening trouble breathing, coughing up blood or breathing fast please return to the ER. Please take Tylenol or Ibuprofen with food every 4-6 hours as needed for pain and swelling. Please take a multivitamin including vitamin C, zinc and vitamin D3. Take these medications with food. Follow up with primary care provider in 3-5 days. Return to ED sooner if any worsening or concerns. Increase oral fluids. Continue to wear a mask as needed until your symptoms are resolved. Referrals: Rhett Robles [Primary Care Provider] - 1 week Discharge Data Discharge Date/Time-TO BE ENTERED AT DEPARTURE: 08/23/23 12:36
--- NOTE | 2023-08-23 11:46 | DI.VRAD_ITS ---
PROCEDURE INFORMATION: Exam: XR Chest Exam date and time: 08/23/2023 11:13 AM Age: 48 years old Clinical indication: Other: Unspecified; Patient HX: Chest pain, covid+ TECHNIQUE: Imaging protocol: Radiologic exam of the chest. Views: 2 views. COMPARISON: 1. CT CHEST PE CTA 06/21/2022 6:56 PM 2. CR XR CHEST 2V PA LATERAL 11/13/2019 11:42 PM FINDINGS: Lungs: The lungs are clear and well aerated bilaterally. There is no consolidation, infiltrate, or pulmonary edema. The pulmonary vasculature is normal in caliber. Pleural spaces: Unremarkable. No pleural effusion or pneumothorax. Heart/Mediastinum: Heart size and cardiomediastinal contours are normal. Bones/joints: Unremarkable. IMPRESSION: No active disease in the chest. Dictated and Authenticated by: Jinny Brandon MD. Ordering:ZAHRA Melchor MD
== END 2023-08-23 12:36 | disposition home or self-care (01) ==
PROVIDERS: Emergency Provider Registered Nurse Emergency; PCP Physician Assistant
DX: U07.1 COVID-19 (principal)
CPT/HCPCS: 99283; 71046; 99282

== ENCOUNTER 2025-02-16 10:19 | Emergency (ER) | payer OTHER, SELFPAY ==
--- NOTE | 2025-02-16 10:00 | RT.EKG_ITS ---
APPROVED REPORT Exam: Resting ECG Reason for Exam: syncope Patient Location: E HR:70 bpm ECG Measurements Heart Rate 70 AXIS AZ 145 P 72 QRSd 82 QRS 10 QT 427 T 7 QTc 460 Conclusion Sinus rhythm...normal P axis, V-rate 60- 99 Low voltage, precordial leads...precordial leads <1.0mV Nonspecific T abnormalities, anterior leads...T <-0.10mV, V2-V4 I have reviewed and interpreted ECG and agree with software generated interpretation.
[2025-02-16 10:12] VITALS: BP 141/78; PULSE 76; RESP 18; TEMP 36.8; O2SAT 99
--- NOTE | 2025-02-16 10:33 | W.ED.GENAD ---
Discharge Plan Disposition Patient Disposition: Home Condition: Good Discharge Details Clinical Impression: Abdominal pain, Syncope Primary Care Provider: Rhett Robles ED Provider: Marizol Gutierrez Home Meds and New Rx's Prescriptions: Continued methylphenidate HCl [Concerta] 18 mg tablet extended release 24hr 18 mg PO PRN lorazepam [Ativan] 0.5 mg tablet 0.5 mg PO TID PRN (Reason: anxiety) Qty: 3 0RF Discharge Instructions Instructions: Abdominal Pain, Adult ED Additional Instructions: As we discussed, the labs and ultrasound are reassuring here today. It is possible that you did have a ruptured cyst and I do encourage that you follow-up with [facility]. Please stop there today to schedule follow-up appointment. If you develop any fever/chills, increased pain, N/V stay hydrated or other new/worsening symptom please see care urgently once again. If you develop that feeling like you are going to pass out yet again, please make sure that you are safe and you lay down prior to the event. Please encourage hydration. Please follow-up with primary care in the next 1 to 2 weeks for reevaluation. Referrals: Rhett Robles [Primary Care Provider, Medicine] Discharge Data Discharge Date/Time-TO BE ENTERED AT DEPARTURE: 02/16/25 13:53 HPI General Date/Time Provider Initiated Documentation: 02/16/25 10:33. Limitations to Documentation: no limitations. Information obtained by: patient, family (son), RN notes reviewed and old records reviewed. History of Present Illness 50 year old F presents to the emergency department with the chief complaint of RLQ pain, syncope, described as severe and similar to prior episodes, and is localized to the abdomen. Patient reports no radiation. Patient started experiencing this minute(s) and it has been constant (improving). No relieving factors improve symptom(s), No exacerbating factors reported . Patient notes syncope; denies chest pain, cough, fever/chills, headaches, loss of appetite, malaise, nausea/vomiting, seizure, shortness of breath and weakness. Patient did receive the following treatments prior to arrival, none Related Data Home Medications ?Medication ?Instructions ?Recorded ?Confirmed lorazepam 0.5 mg tablet (Ativan) 0.5 mg PO TID PRN anxiety #3 tabs 11/14/19 02/16/25 methylphenidate HCl 18 mg 18 mg PO PRN 11/02/22 06/27/25 tablet,extended release 24 hr (Concerta) Previous Rx's ?Medication ?Instructions ?Recorded lorazepam 0.5 mg tablet (Ativan) 0.5 mg PO TID PRN anxiety #3 tabs 11/14/19 Allergies Allergy/AdvReac Type Severity Reaction Status Date / Time morphine Allergy Severe Anaphylaxsi Verified 02/16/25 10:21 s nitrofurantoin (From Allergy Severe Anaphylaxsi Verified 02/16/25 10:21 Macrobid) s sulfamethoxazole (From Allergy Unknown Unknown Verified 02/16/25 10:21 Bactrim) trimethoprim (From Bactrim) Allergy Unknown Unknown Verified 02/16/25 10:21 clobetasol AdvReac Mild ? S/E from Verified 02/16/25 10:21 cream. Pt given clobetasol oinment w/o problems. 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: 3 Review of Systems Constitutional Constitutional: Reports as per HPI, Denies chills, Denies fever(s) and Denies headache(s) ENT Ears, Nose, Mouth, and Throat: Denies headache(s) Cardiovascular Cardiovascular: Reports as per HPI, Denies chest pain and Denies dyspnea Respiratory Respiratory: Reports as per HPI, Denies cough and Denies dyspnea Gastrointestinal Gastrointestinal: Reports as per HPI Musculoskeletal Musculoskeletal: Reports as per HPI and Denies back pain Integumentary/Breasts Skin/Breast: Reports as per HPI and Denies rash Neurologic Neurologic: Reports as per HPI and Denies headache(s) Exam Const General: cooperative, healthy appearing, comfortable, no acute distress and well developed Nutritional Appearance: average body habitus and well nourished Orientation: alert and awake [facility] Head: normal to inspection Mouth: moist mucous membranes Resp Effort & Inspection: normal respiratory effort, able to speak in complete sentences and no respiratory distress Auscultation: clear to auscultation bilaterally, no rales, no rhonchi and no wheezes Cardio Rate: regular rate Rhythm: regular rhythm Heart Sounds: S1 normal and S2 normal GI Inspection: normal to inspection Palpation: soft, no hepatosplenomegaly, not firm, no guarding, no masses, no pulsatile masses, nontender and No ascites Percussion: normal to percussion Auscultation: normal bowel sounds Back/Spine/Pelvis Back: no CVA tenderness Skin General skin exam: no rashes or lesions noted Trauma: no lacerations or abrasions Neuro General: patient alert and patient awake Cognition: normal cognition Speech: speech normal Gait: normal gait Course Vital Signs Vital signs: Vital Signs Temperature 36.8 C 02/16/25 10:12 Pulse 76 02/16/25 10:12 Respiratory Rate 18 02/16/25 10:12 Blood Pressure 141/78 H 02/16/25 10:12 Pulse Oximetry 99 02/16/25 10:12 Temperature 36.8 C 02/16/25 10:12 Temperature Source Oral 02/16/25 10:12 Pulse 76 02/16/25 10:12 Respiratory Rate 18 02/16/25 10:12 Blood Pressure 141/78 H 02/16/25 10:12 Blood Pressure Position Supine 02/16/25 10:12 Pulse Oximetry 99 02/16/25 10:12 Oxygen Delivery Method Room Air 02/16/25 10:12 Oxygen Flow Rate 0 02/16/25 10:12 Pain Level 8 02/16/25 10:12 Medical Decision Making Patient is a pleasant 50-year-old female, accompanied by her son, presenting a chief complaint of sudden onset of abdominal pain. She reports that this is typical pain for her associated with a ruptured ovarian cyst. States that it feels the same as it has historically. She reports that when she has these sudden onset of pain, she can often become lightheaded and suffer from syncopal episodes. She reports that she had such an event today. [place] like she was slightly hyperventilating associated with the pain and lost consciousness. She denies actually falling or striking her head. Feels that this is the same as her previous episodes. Her pain is already improving. She finds it warm compresses are beneficial. Patient reports she is perimenopausal had gone the past 3 months without any menses but then began with another menstrual cycle recently. Has had intermittent spotting since then. No significant blood loss. Patient also has intrauterine fibroids which are followed by [facility], reports that she was slightly lost to follow-up with the change of medical providers and is due to be seen once again. She denies any change in the location of her pain. No nausea or vomiting. No change in bowel or bladder habits. No radiation of the pain, no back pain. On exam, patient appears nontoxic. Resting comfortably no acute distress, hemodynamically stable. She is slightly tender in the right lower quadrant but with deep palpation she does not seem to have any true reaction. She has no pain elsewhere, no guarding, no rebound tenderness. With the history of sudden onset of abdominal pain as well as the syncopal episode, consider significant bleed despite her relatively reassuring physical exam. For this reason we will perform FAST exam. Bedside US FAST exam performed by myself and Dr. Mccullough. Please see Dr. Mccullough's note as well. No free fluid was appreciated on the FAST exam Regarding the patient's syncopal episode, she reports that she did have a sudden onset of feeling warm and lightheaded consistent with previous prodromal symptoms from syncopal episodes. She denied any palpitations, chest pain, shortness of breath associated with this. Sounds like true vasovagal syncope associated with the onset of discomfort patient reports that she has had syncope with discomfort several times historically. Do not see need for further syncopal workup at this time The patient continues to feel improved. Will obtain baseline labs as well as a transvaginal ultrasound. While patient certainly could also have other abdominal causes such as appendicitis, given how low in the pelvis her discomfort is as well as her description of this being exactly as her previous ruptured cyst discomfort has been, this is my primary area of concern. If patient is not improving as expected or other abnormalities found on workup, we will consider other types of imaging and expanding the evaluation. . Ultrasound reviewed by radiologist: FINDINGS: UTERUS: Position: Anteverted. Size: 8.2 long by 5.1 AP by 7.4 transverse cm Endometrium: 0.9 cm. Normal for patient's menstrual status. Myometrium: Uterine fibroids are again seen. The largest is seen in the posterior body and measures 3.8 x 2.8 x 3.4 cm. Cervix: Nabothian cysts are present. OVARIES: Right: 1.6 x 2 x 1 cm Cyst or mass: No suspicious cystic or solid masses. Left: 3.4 x 2.6 x 2.5 cm Cyst or mass: No suspicious cystic or solid masses. There is a 2.3 cm simple follicular cyst on the left ovary. DOPPLER: Color: Symmetric and uniform flow to both ovaries. CUL-DE-SAC: Free fluid: None. Other: None. IMPRESSION: 1. Uterine fibroids. 2. Unremarkable bilateral ovaries. Labs reviewed. Patient has a slight leukocytosis white count of 11.6. This could be associated with her discomfort. She is not having any vaginal discharge to suggest infection. No CVA tenderness, no symptoms to suggest a UTI. Her CMP was without significant abnormality. test is negative. I discussed the findings with the patient. Without any analgesics, she is completely improved, eating and drinking, laughing with her son. I do not see need for further evaluation at this point. This may have been associated with a ruptured cyst but otherwise, she does not have any remnant abdominal pain on reexamination. She has no anemia or hemodynamic instability. Strict return precautions were discussed. Patient will go from here to [facility] to schedule follow-up appointment as she is overdue for her routine care with them. All of her questions and concerns were addressed and patient is in agreement this plan. PFS All Active Problems (Updated 02/16/25 @ 13:37 by MOO Whitehead) Syncope (Chronic) Abdominal pain (Acute) COVID (Acute) Nipple discharge (Acute) Abnormal mammogram (Acute) L breast microcysts. Mass of soft tissue of chest (Acute) Chest wall pain (Acute) bilateral of mid sternum. tender Nl mammogram. Bilateral breast u/s 05/2022. Altered heart rate (Acute) Leukocytosis (Acute) Cough (Acute) UTI (urinary tract infection) (Acute) Intractable migraine with aura with status migrainosus (Acute) COMPLEX MIGRAINE with fortification spectra, confusion, mood issues,dysarthria Acute intractable headache (Acute) Cystitis, subacute (Chronic) 11/22/2019 empiric treatment with Pyridium and cephalexin x3 days Pelvic pain in female (Chronic) R>L side. Longstanding pt assoc with ovulation. Unable to evangelina OCPs secondary to GILES and GI S/E. Vulvitis (Chronic) clobetasol cream replaced with clobetasol ointment. effective without side effects. Uterine myoma (Acute 09/20/14) 08/2014 fundal fibroid [id number] 12/2014 [id number] fundal fibroid Strain of gastrocnemius tendon of right lower extremity (Acute 11/10/17) Pelvic pain in female (Acute 04/09/14) R>L side assoc with ovulation. pelvic u/s 04/06/14 uterine fibroid and nl adnexa. Paresthesias (Acute 04/21/16) Panic attacks (Acute 03/23/17) Microscopic hematuria (Acute 09/09/12) Noted at time of office visit for pelvic pain. No IC w/u Kyphosis (acquired) (postural) (Acute 11/10/17) Dysuria (Acute 03/20/14) Dysfunction of right eustachian tube (Acute 05/24/17) Chronic constipation (Acute 04/09/14) seen by Yogesh Murrell 2013 who recommended GI at [facility] Anxiety (Acute 03/23/17) Medical History Irritable bowel Anemia Fibromyalgia Self diagnosis Neurological symptoms Pt having MRI of brain for sx c/w MS. Uterine fibroid 08/2014 fundal fibroid [id number] 12/2014 fundal fibroid [id number]. Elevated hemoglobin A1c 2012 HbgA1c 6.2. 04/2014 HbgA1c 5.5 Microscopic hematuria Noted in 2012. Pt treated for UTI 02/2014. Constipation, chronic seen by Yogesh Murrell who recommended GI consult. Surgical History nasal surgery Tooth extraction Family History Mother Ovarian mass Father , Heart Attack Heart disease Mother , distant hx of ovarian mass. s/p laparotomy and removal. No further treatment required. No problems noted. Social History Smoking/Tobacco Use Status: Never Smoking risk assessment performed?: Yes Alcohol Intake: current Alcohol Intake frequency: a few times a month Alcohol type: wine Drug use: Never Household members: spouse, children and other Details: Amandeep, Romel, autistic with violent behavior, [id number], [id number] Number of Children: 3 current occupation: [employer] Sexually active: Yes (Uses 's vasectomy for contraception) Current gender identity: female Do you feel safe at home: Yes Do you feel safe in your relationship?: Yes Female Reproductive History Menstrual control method: permanent sterilization and other History History 3 Para Hx # Term Pregnancies Multiple births Hx # Pregnancies 3 Ectopic pregnancies AB induced Hx Number of Living Children 3 AB spontaneous
--- NOTE | 2025-02-16 10:45 | DI.US_ITS ---
Exam(s) US PELVIS TRANSVAGINAL EXAM: US PELVIS TRANSVAGINAL CLINICAL HISTORY: sudden onset RLQ pain, syncope. TECHNIQUE: Transabdominal and transvaginal pelvic ultrasound was performed using standard protocol. COMPARISON: No exams were available for comparison FINDINGS: UTERUS: Position: Anteverted. Size: 8.2 long by 5.1 AP by 7.4 transverse cm Endometrium: 0.9 cm. Normal for patient's menstrual status. Myometrium: Uterine fibroids are again seen. The largest is seen in the posterior body and measures 3.8 x 2.8 x 3.4 cm. Cervix: Nabothian cysts are present. OVARIES: Right: 1.6 x 2 x 1 cm Cyst or mass: No suspicious cystic or solid masses. Left: 3.4 x 2.6 x 2.5 cm Cyst or mass: No suspicious cystic or solid masses. There is a 2.3 cm simple follicular cyst on the left ovary. DOPPLER: Color: Symmetric and uniform flow to both ovaries. CUL-DE-SAC: Free fluid: None. Other: None. IMPRESSION: 1. Uterine fibroids. 2. Unremarkable bilateral ovaries. DATA REPOSITORY:
[2025-02-16 12:14] VITALS: BP 145/82; BP 153/86; BP 178/99; PULSE 69; PULSE 77; PULSE 84
[2025-02-16 12:36] LABS: Abs Immature Grans 0.03 10^3/uL (0.0-0.06); Absolute Basophil Count 0.06 10^3/uL (0.0-0.2); Absolute Eosinophil Count 0.05 10^3/uL (0.0-0.7); Absolute Lymphocyte Count 1.41 10^3/uL (1.2-3.4); Absolute Monocyte Count 0.52 10^3/uL (0.1-0.8); Absolute Neutrophil Count 9.56 10^3/uL (1.2-6.7); Basophils % 0.5 %; Eosinophils % 0.4 %; HCT 40.6 % (36.0-46.0); Immature Grans % 0.3 %; Lymphocytes % 12.1 %; MCH 29.3 pg (27.0-33.0); MCV 91 fL (80-95); MPV 11.5 fL (8.0-11.0); Monocytes % 4.5 %; Neutrophils % 82.2 %; Platelet Count 312 10^3/uL (130-400); RBC 4.44 10^6/uL (3.93-5.22); RDW 13.4 % (11.7-14.6); RDW-SD 45.4 fL; WBC 11.63 10^3/uL (4.4-10.8)
[2025-02-16 13:11] LABS: HCG Qual (Serum) Negative
[2025-02-16 13:20] LABS: ALT 28 U/L (14-59); AST 16 U/L (15-37); Albumin 4.1 g/dL (3.4-5.0); Alkaline Phosphatase 80 U/L (46-116); Anion Gap 9.4 mmol/L (3-11); BUN 15 mg/dL (7-18); Bilirubin, Total 0.4 mg/dL (0.2-1.0); CO2 27.6 mmol/L (21.0-32.0); CREATININE 0.6 mg/dL (0.55-1.02); Calcium 9.3 mg/dL (8.5-10.1); Chloride 104 mmol/L (98-107); Estimated GFR 107.93 (mL/min/1.73m2); Glucose 95 mg/dL (74-106); Potassium 4.1 mmol/L (3.5-5.1); Sodium 141 mmol/L (136-145); Total Protein 7.2 g/dL (6.4-8.2)
== END 2025-02-16 13:53 | disposition home or self-care (01) ==
PROVIDERS: Emergency Provider Physician Assistant; PCP Physician Assistant
DX: R10.31 Right lower quadrant pain (principal); R55 Syncope and collapse
CPT/HCPCS: 36415; 80053; 93005; 99284; 76830; 76856; 84703; 85025; 93010

== ENCOUNTER 2025-03-09 11:33 | Outpatient (REF) | payer OTHER, SELFPAY | END 2025-03-09 11:34 | disposition home or self-care (01) | LOC: LBN 11:33 | PROVIDERS: PCP Physician Assistant; Visit Provider Obstetrics & Gynecology | DX: Z12.4 Encounter for screening for malignant neoplasm of cervix (principal) | CPT/HCPCS: 88142; 87624 ==